=== PATIENT | female | born 2000 | race American Indian/Alaskan Native ===

== ENCOUNTER 2024-05-05 10:01 | Outpatient (AMB) | payer OTHER, SELFPAY ==
--- NOTE | 2024-05-05 10:03 | MHC.PC.OV ---
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 She states that she has been worked up for this by her PCP where in they did ultrasound of the chest , chest x-ray, all of which came back negative and they did an MRI which showed some abnormal findings, but patient unable to follow-up with them anymore as they have since closed her practice. She has never been prescribed anything for the pain and swelling. Has not had any trauma to affected area, no strenuous exertion, just gave a year ago to her 1st child. She states that the pain is aggravated by lifting are doing any stretching. [facility] Medical History (Updated 05/05/24 @ 11:37 by Melly Medrano MD) History of anxiety disorder No pertinent past medical history Surgical History (Updated 05/05/24 @ 10:14 by Evaristo Carver CMA) History of adenoidectomy Hx of tonsillectomy History of appendectomy Family History (Updated 05/05/24 @ 10:30 by Melly Medrano MD) Father Morbid obesity Mother Essential hypertension Depression Paternal Grandfather Diabetes mellitus Paternal Uncle Diabetes mellitus Social History Housing: House Patient Tobacco Use Status: Never used Tobacco e-Cigarette/Vaping Use: Currently Using service: Yes Current occupational status: employed Current occupation: [employer] Current occupational exposures/hazards: Yes Cognitive needs: No Hearing needs: No Vision needs: No Female Reproductive History Menstrual Duration of menses: 3-5 days Date of last menstrual period: 04/27/24 control method: copper IUCD (2022) Date of last pap smear: 04/25/23 Questionnaire PHQ-9 Over the last 2 weeks, how often have you been bothered by any of the following problems? 1. Little interest or pleasure in doing things: not at all 2. Feeling down, depressed, or hopeless: not at all 3. Trouble falling or staying asleep, or sleeping too much: not at all 4. Feeling tired or having little energy: not at all 5. Poor appetite or overeating: not at all 6. Feeling bad about yourself - or that you are a failure or have let yourself or your family down: not at all 7. Trouble concentrating on things, such as reading the newspaper or watching television: not at all 8. Moving or speaking so slowly that other people could have noticed. Or the opposite - being so fidgety or restless that you have been moving around a lot more than usual: not at all 9. Thoughts that you would be better off or of hurting yourself in some way: not at all Total score: 0 Depression Screening Interpretation: Negative Depression Screening Done: Yes 82704 - PHQ-9 Billing: Yes Source: Developed by Drs. Bob Abdul, Sharita Euceda, Thanh Han and colleagues, with an educational giovanny from [employer]. Thrive Questionnaire Date Thrive assessed: 05/05/24 I am a: Patient What is your living situation today?: I have a steady place to live Within the past 12 months, did the food you bought not last and you didn't have the money to get more?: Never true Within the past 12 months, did you worry whether your food would run out before you got money to buy more?: Never true Do you have trouble paying for medicines?: No Do you have trouble getting transportation to medical appointments?: No Do you have trouble paying your heating and electricity bill?: No Do you have trouble taking care of your child, family member or friend?: No Do you have trouble with day-to-day activities such as bathing, preparing meals, shopping, managing finances, etc.?: No Are you currently unemployed and looking for a job?: No Are you interested in more education?: No THRIVE Score: 0 AUDIT C Alcohol Use Questionnaire (AUDIT-C) 1. How often do you have a drink containing alcohol?: 2-4 times a month 2. How many drinks containing alcohol do you have on a typical day when you are drinking?: 1 or 2 3. How often do you have six or more drinks on one occasion?: Never Total Score: 2 Score Reviewed/Action Taken: No THU-7 AMB Questionnaire THU-7 Date THU - 7 assessed: 05/05/24 Feeling nervous, anxious, or on edge: 1 = Several days Not being able to stop or control worryin = Not at all Worrying too much about different things: 1 = Several days Trouble relaxin = Several days Being so restless that it is hard to sit still: 0 = Not at all Becoming easily annoyed or irritable: 1 = Several days Feeling afraid as if something awful might happen: 0 = Not at all Total THU-7 score (0-4 normal; 5-9 mild; 10-14 moderate; 15-21 severe): 4 Source: Developed by Drs. Bob Abdul, Sharita Euceda, Thanh Han and colleagues, with an educational giovanny from [employer]. THU-7 Assessment Billing THU-7 Assessment Tool: THU-7 Assessment 01321 (Previously on duloxetine 30 mg daily, currently not taking ) Review of Systems Const Denies body aches, Denies fatigue, Denies fever(s), Denies headache(s) and Denies weakness Eyes Denies change in vision ENT Denies dizziness, Denies headache(s) and Denies nasal congestion Card Denies lightheadedness, Denies palpitations and Denies dyspnea Resp Denies cough and Denies dyspnea GI Denies abdominal pain, Denies change in bowel habits and Denies heartburn Denies hematuria, Denies urinary frequency, Denies dysuria and Denies urinary urgency Skin/Breast Denies breast pain, Denies breast mass, Denies lesions and Denies rash Neuro Denies dizziness, Denies headache(s) and Denies weakness Endo Denies fatigue, Denies polydipsia and Denies palpitations Jerry/Lymph Denies easy bruising Aller/Immun Denies seasonal rhinorrhea Physical exam (Primary Care) Vital Signs: Last Vital Signs Pulse 86 05/05/24 10:04 BP 108/80 05/05/24 10:04 Pulse Ox 98 05/05/24 10:04 Oxygen Delivery Method Room Air 05/05/24 10:04 BMI result Body Mass Index 28.1 Tobacco/Smoking Status: Tobacco use Status Tobacco use date assessed 05/05/24 05/05/24 10:16 Patient Tobacco Use Status Never used Tobacco 05/05/24 10:16 e-Cigarette/Vaping Use Currently Using 05/05/24 10:16 PHQ-9: PHQ-9 Score PHQ-9: Total score 0 05/05/24 10:41 Depression Screening Interpretation: Negative Const Other: Alert oriented x3, no acute distress noted ambulatory normal gait HENMT Head: Yes normocephalic Ears: hearing grossly normal bilaterally General nose exam: Normal external nose present Face and sinus: Yes face symmetric Mouth: Normal oral and palatal mucosa present, oropharynx normal and moist mucous membranes Eyes General: appearance normal, both eyes and all related structures Neck Neck: Yes full ROM, Yes no lymphadenopathy and Yes supple Chest Other: Irregularly shaped , firm mass palpated on right anterior chest wall, slightly tender to palpation Resp Effort & Inspection: normal respiratory effort and able to speak in complete sentences Auscultation: clear to auscultation bilaterally Cardio Rate: regular rate Rhythm: regular rhythm Heart sounds: S1 normal heart sound present and S2 normal heart sound present Assessment and Plan Assessment & Plan (1) Mass of right chest wall: Code(s): R22.2 - Localized swelling, mass and lump, trunk 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 Ordered ultrasound of soft tissue. records requested from previous basically including MRI results in other ancillary testing done. Advised rest, avoidance of strenuous activity, application of heat to the affected area, and pain medications such as nonsteroidal anti-inflammatory drugs (NSAIDs) or massaging diclofenac gel to affected area 3 to 4 times a day as needed. Patient cautioned however not to apply heat when using the gel Orders: Orders US soft tiss head and/or neck Today R22.2 - Localized swelling, mass and lump, trunk Medications: New diclofenac sodium 1% apply to right chest mass 4 grams topical QID PRN 100 grams 0RF pain, moderate Coding Level of Care Code New Pt Level 3 (50403) Diagnoses Mass of right chest wall R22.2 Additional Codes THU-7 Assessment Billing - THU-7 Assessment Tool: THU-7 Assessment 47412 ([id number])
[2024-05-05 10:04] VITALS: BP 108/80; PULSE 86; O2SAT 98; BMI 28.1
== END 2024-05-05 10:57 | disposition home or self-care (01) ==
PROVIDERS: PCP Internal Medicine; Visit Provider Internal Medicine
DX: R22.2 Localized swelling, mass and lump, trunk (principal)
CPT/HCPCS: 99203

== ENCOUNTER 2024-06-26 09:57 | Outpatient (AMB) | payer OTHER, SELFPAY ==
[2024-06-26 10:02] VITALS: BP 122/84; PULSE 104; O2SAT 97; BMI 28.3
--- NOTE | 2024-06-26 10:02 | AM.OFFWIN_ITS ---
Intake Vital Signs 06/26/24 10:02 Height 5 ft 8 in Weight 186 lb BMI 28.3 BP 122/84 Blood Pressure Location Lt brachial Position Sitting Pulse 104 H Pulse Source Pulse Oximeter Pulse Oximetry (%) 97 Oxygen Delivery Method Room Air Intake Visit Reasons: EP- Lower back pain, shooting pain up & down Intake Note: Patient here for back pain that has progressed over the past 3 weeks ago and has tingling and sharp pain that radiates up the spine now. Patient Tobacco Use Status: Never used Tobacco Allergies Penicillins Allergy (Severe, Verified 06/26/24 10:05) rash Do you need a note to return to daycare/school/sports/work: No HPI HPI Comments History of Present Illness Details Patient is a 24-year-old female complaining of low back pain for the last week or so. She states she injured it over 10 years ago when she was lifting weights at the gym. She had to go to physical therapy for it to heal and has not had an issue since. She is now stating she had a baby a year ago and joined the so she is constantly picking up her 21 lb child and doing a lot more athletic activity due to the which is her job. She states she thinks she re-injured it because it hurts when she bends over or when she tries to move. She states the pain is her low back and it goes all the way across. She states she has tried ibuprofen, lidocaine patches, 3 different kinds of gels and Tylenol and nothing seems to help. She denies any loss of control of her bladder or bowels. [facility] Medical History (Updated 06/26/24 @ 10:55 by Morena Ledezma PA-C) History of anxiety disorder No pertinent past medical history Surgical History (Updated 05/05/24 @ 10:14 by Evaristo Carver CMA) History of adenoidectomy Hx of tonsillectomy History of appendectomy Family History (Updated 05/05/24 @ 10:30 by Melly Medrano MD) Father Morbid obesity Mother Essential hypertension Depression Paternal Grandfather Diabetes mellitus Paternal Uncle Diabetes mellitus Social History Housing: House Patient Tobacco Use Status: Never used Tobacco e-Cigarette/Vaping Use: Currently Using service: Yes Current occupational status: employed Current occupation: [employer] Current occupational exposures/hazards: Yes Cognitive needs: No Hearing needs: No Vision needs: No Review of Systems Const All systems reviewed & are unremarkable except as noted in HPI and below Physical Exam Vital Signs: Last Vital Signs Pulse 104 H 06/26/24 10:02 BP 122/84 06/26/24 10:02 Pulse Ox 97 06/26/24 10:02 Oxygen Delivery Method Room Air 06/26/24 10:02 BMI result Body Mass Index 28.3 Const General: cooperative, healthy appearing and comfortable Orientation/consciousness: patient oriented x3 HEENT Head: Yes normal to inspection and Yes normocephalic General nose exam: Normal external nose present Face and sinus: Yes normal facial exam Eyes General: appearance normal, both eyes and all related structures Resp Effort & Inspection: normal respiratory effort and able to speak in complete sentences Back/Spine/Pelvis Cervical Spine: cervical ROM normal and No Cervical spine tenderness Thoracic/Lumbar Spine: thoracic and lumbar spine normal to inspection, paraspinal muscle tenderness bilaterally in the upper lumbar and in the mid lumbar, thoraco-lumbar ROM limited (slight) with forward flexion, with lateral flexion to the right, with lateral flexion to the left, with rotation to the right and with rotation to the left, No thoracic spinal tenderness and No lumbar spinal tenderness Neuro General: patient oriented x3 Assessment & Plan Assessment & Plan (1) Low back pain: Code(s): M54.50 - Low back pain, unspecified Qualifiers: Chronicity: acute Back pain laterality: bilateral Sciatica presence: without sciatica Qualified Code(s): M54.50 - Low back pain, unspecified Plan: Recommended Aleve around the clock for the next 5-7 days while adding in cyclobenzaprine. Gave warnings on cyclobenzaprine; do not drink alcohol or drive a motor vehicle when you are taking this medication. Recommended resting her back. Wrote a work note to accommodate no running, no jumping, alternating sitting and standing and not lifting more than 10 lb through July 29. Patient has an appointment with her PCP on July 29 so they can readdress her low back pain at that point and determine what else she needs. Plan See above Medications: New cyclobenzaprine 5 mg PO TID PRN 14 tabs 0RF muscle spasm Coding Level of Care Code Est Pt Level 4 (26029) Diagnoses Acute bilateral low back pain without sciatica M54.50 Chronicity: acute Back pain laterality: bilateral Sciatica presence: without sciatica
== END 2024-06-26 10:46 | disposition home or self-care (01) ==
PROVIDERS: PCP Internal Medicine; Visit Provider Physician Assistant
DX: M54.50 Low back pain, unspecified (principal)
CPT/HCPCS: 99214

== ENCOUNTER 2024-07-10 14:03 | Outpatient (REF) | payer OTHER, SELFPAY ==
--- NOTE | ~2024-07-10 | US_ITS ---
EXAMINATION: US CHEST CLINICAL INFORMATION: Right chest wall mass. COMPARISON: None available. TECHNIQUE: High frequency linear ultrasound transducer was used to examine the area of clinical concern in the right chest below the sternum. FINDINGS: No abnormality is seen. Normal rib is seen in the area of clinical concern. No masses or fluid collections are detected. US/US chest IMPRESSION: No abnormality is seen in the area of clinical concern. Electronically signed by: Zackary Barraza MD 07/19/2024 11:28 AM EDT
== END 2024-07-10 14:04 | disposition home or self-care (01) ==
LOC: HO.HMGCX 14:03
PROVIDERS: PCP Internal Medicine; Visit Provider Internal Medicine
DX: R22.2 Localized swelling, mass and lump, trunk (principal)
CPT/HCPCS: 76604

== ENCOUNTER 2024-07-29 12:43 | Outpatient (AMB) | payer OTHER, SELFPAY ==
[2024-07-29 13:20] VITALS: BP 100/80; PULSE 97; O2SAT 97; BMI 28.4
--- NOTE | 2024-07-29 13:20 | MHC.PC.OV ---
Vital Signs 07/29/24 13:20 Height 5 ft 8 in Weight 187 lb BMI 28.4 BP 100/80 Blood Pressure Location Lt brachial Position Sitting Pulse 97 Pulse Source Pulse Oximeter Pulse Oximetry (%) 97 Oxygen Delivery Method Room Air Intake Visit Reasons: Annual PE Intake Note: Pt here today for her PE Is last menstrual period known: Yes Last menstrual period: 07/03/24 Allergies Penicillins Allergy (Severe, Verified 08/03/24 03:52) rash Medication List - Last Reconciled 08/03/24 by Melly Medrano MD copper (ParaGard T 380A) intrauterine cyclobenzaprine 5 mg PO TID PRN nabumetone 500 mg PO BID tizanidine 4 mg PO Q8H PRN valacyclovir 1,000 mg PO DAILY Tobacco use date assessed: 07/29/24 Dental Screening Dental Screen Date: 07/29/24 Did you have a dental visit in the last 12 months?: Yes Did you have a dental problem in the last 6 months where you did not have access to dental care?: Yes Was dental information given to patient?: Patient has dentist HPI Annual PE HPI Details 24-year-old lady here today for physical exam. She has been having lower back pain radiating down both legs, present for the last months, no history of any injury. She is currently in the , has had similar symptoms in the past but they usually would resolve with rest and taking NSAIDs. However these episodes seems to be getting worse progressively and no relief with taking Motrin or Tylenol. Complains of shooting pain from lower back down both legs, worse with sitting or standing unable to carry anything heavier than 20 lb. No improvement with ibuprofen or cyclobenzaprine. Started after she did a jump squat while training in the [facility] Medical History (Updated 07/31/24 @ 13:30 by Melly Medrano MD) Lumbar back pain with radiculopathy affecting lower extremity History of anxiety disorder No pertinent past medical history Surgical History (Updated 05/05/24 @ 10:14 by Evaristo Carver CMA) History of adenoidectomy Hx of tonsillectomy History of appendectomy Family History (Updated 07/29/24 @ 13:45 by Suzie Dutton CMA) Father Morbid obesity Mother Essential hypertension Depression Paternal Grandfather Diabetes mellitus Paternal Uncle Diabetes mellitus Social History Housing: House Patient Tobacco Use Status: Never used Tobacco e-Cigarette/Vaping Use: Currently Using service: Yes Current occupational status: employed Current occupation: [employer] Current occupational exposures/hazards: Yes Cognitive needs: No Hearing needs: No Vision needs: No Female Reproductive History Menstrual Date of last menstrual period: 07/03/24 control method: copper IUCD Questionnaire PHQ-9 Over the last 2 weeks, how often have you been bothered by any of the following problems? 1. Little interest or pleasure in doing things: not at all 2. Feeling down, depressed, or hopeless: not at all 3. Trouble falling or staying asleep, or sleeping too much: not at all 4. Feeling tired or having little energy: not at all 5. Poor appetite or overeating: not at all 6. Feeling bad about yourself - or that you are a failure or have let yourself or your family down: not at all 7. Trouble concentrating on things, such as reading the newspaper or watching television: not at all 8. Moving or speaking so slowly that other people could have noticed. Or the opposite - being so fidgety or restless that you have been moving around a lot more than usual: not at all 9. Thoughts that you would be better off or of hurting yourself in some way: not at all Total score: 0 Depression Screening Interpretation: Negative Depression Screening Done: Yes 75689 - PHQ-9 Billing: Yes Source: Developed by Drs. Bbo Abdul, Sharita Euceda, Thanh Han and colleagues, with an educational giovanny from [employer] Thrive Questionnaire Date Thrive assessed: 07/29/24 I am a: Patient What is your living situation today?: I have a steady place to live Within the past 12 months, did the food you bought not last and you didn't have the money to get more?: Never true Within the past 12 months, did you worry whether your food would run out before you got money to buy more?: Never true Do you have trouble paying for medicines?: No Do you have trouble getting transportation to medical appointments?: No Do you have trouble paying your heating and electricity bill?: No Do you have trouble taking care of your child, family member or friend?: No Do you have trouble with day-to-day activities such as bathing, preparing meals, shopping, managing finances, etc.?: No Are you interested in more education?: No Please select the resources that you would like help with: None Currently or been in a relationship where the following occur: No concerns reported THRIVE Score: 0 AUDIT C Alcohol Use Questionnaire (AUDIT-C) 1. How often do you have a drink containing alcohol?: Monthly or less 2. How many drinks containing alcohol do you have on a typical day when you are drinking?: 1 or 2 3. How often do you have six or more drinks on one occasion?: Never Total Score: 1 THU-7 AMB Questionnaire THU-7 Date THU - 7 assessed: 07/29/24 Feeling nervous, anxious, or on edge: 0 = Not at all Not being able to stop or control worryin = Not at all Worrying too much about different things: 0 = Not at all Trouble relaxin = Not at all Being so restless that it is hard to sit still: 0 = Not at all Becoming easily annoyed or irritable: 0 = Not at all Feeling afraid as if something awful might happen: 0 = Not at all Total THU-7 score (0-4 normal; 5-9 mild; 10-14 moderate; 15-21 severe): 0 Source: Developed by Drs. Bob Abdul, Sahrita Euceda, Thanh Han and colleagues, with an educational giovanny from [employer] Review of Systems Const Denies fatigue, Denies fever(s), Denies headache(s) and Denies weakness Eyes Denies change in vision, Denies eye discharge and Denies itchy eyes ENT Denies dizziness, Denies headache(s), Denies nasal congestion, Denies nasal discharge and Denies sore throat Card Denies chest pain, Denies lightheadedness, Denies palpitations and Denies dyspnea Resp Denies chest congestion, Denies cough, Denies dyspnea and Denies wheezing GI Denies abdominal pain, Denies change in bowel habits and Denies heartburn Denies hematuria, Denies urinary frequency, Denies dysuria and Denies urinary urgency Musc Reports as per HPI Skin/Breast Denies breast pain, Denies breast mass, Denies lesions and Denies rash Neuro Denies dizziness, Denies headache(s) and Denies weakness Psych Reports no additional complaints Endo Denies fatigue, Denies polydipsia, Denies polyuria and Denies palpitations Jerry/Lymph Denies easy bruising Aller/Immun Denies itchy eyes, Denies seasonal rhinorrhea and Denies wheezing Physical exam (Primary Care) Vital Signs: Last Vital Signs Pulse 97 07/29/24 13:20 BP 100/80 07/29/24 13:20 Pulse Ox 97 07/29/24 13:20 Oxygen Delivery Method Room Air 07/29/24 13:20 BMI result Body Mass Index 28.4 Tobacco/Smoking Status: Tobacco use Status Tobacco use date assessed 07/29/24 07/29/24 13:23 Patient Tobacco Use Status Never used Tobacco 07/29/24 13:23 e-Cigarette/Vaping Use Currently Using 07/29/24 13:23 PHQ-9: PHQ-9 Score PHQ-9: Total score 0 07/29/24 13:59 Depression Screening Interpretation: Negative Thrive Assessment: Date of Thrive Assessment Date Thrive assessed 07/29/24 07/29/24 13:23 Currently or been in a relationship where the following occur: No concerns reported Const Other: Alert oriented x3, no acute distress noted, ambulatory Orientation/consciousness: patient oriented x3 HENNE Head: Yes normocephalic Ears: hearing grossly normal bilaterally General nose exam: Normal external nose present Face and sinus: Yes face symmetric Mouth: Normal oral and palatal mucosa present, oropharynx normal and moist mucous membranes Eyes General: appearance normal, both eyes and all related structures Neck Neck: Yes full ROM, Yes no lymphadenopathy and Yes supple Chest Breast/axilla palpation: normal palpation of the breasts Resp Effort & Inspection: normal respiratory effort and able to speak in complete sentences Auscultation: clear to auscultation bilaterally Cardio Rate: regular rate Rhythm: regular rhythm Heart sounds: S1 normal heart sound present and S2 normal heart sound present GI Palpation (GI): Soft to palpation, nontender, no guarding and no masses Auscultation: normal bowel sounds Other: Patient has her own OBGYN Back/Spine/Pelvis Other: Equivocal straight leg raising sign on left Thoracic/Lumbar Spine: paraspinal muscle tenderness bilaterally in the lower lumbar Skin General skin exam: no rashes or lesions noted Neuro General: patient oriented x3, gait normal, tone normal, moves all extremities, Normal light touch and pain sensation, no focal motor deficits and CN's II-XI intact bilaterally Extrem General: Yes full ROM, Yes no joint enlargement and Yes no clubbing, cyanosis or edema Psych Appearance: grossly normal and well kempt Mental Status: mental status grossly normal Speech and movement: Normal speech and movement present Affect: normal affect Assessment and Plan Assessment & Plan (1) Annual visit for general adult medical examination with abnormal findings: Code(s): Z00.01 - Encounter for general adult medical examination with abnormal findings Plan: Will check appropriate labs. Recommended dental visit every 6 months and regular eye exams, at least every 2 years. Instructed to do self-breast exam, and recommended to get yearly mammogram, starting at age 40. Patient states that she has her own OBGYN and is up-to-date with her cervical cancer screening. She is up-to-date with all her vaccines (2) Lumbar back pain with radiculopathy affecting lower extremity: Code(s): M54.16 - Radiculopathy, lumbar region Plan: Will try on nabumetone 500 mg per tablet to take 1 twice a day with food as needed for pain. Discontinued cyclobenzaprine 5 mg and prescribed tizanidine 4 mg/ tablet, may take 1 tablet 3 times a day as needed for muscle spasms . she was given a work note with restrictions. Return to clinic if no improvement of symptoms, MRI of lumbar spine without contrast ordered Orders: Orders Aspartate Amino Transferase 07/29/24 M54.16 - Radiculopathy, lumbar region, Z00.01 - Encounter for general adult medical examination with abnormal findings, Z13.1 - Encounter for screening for diabetes mellitus, Z13.220 - Encounter for screening for lipoid disorders Basic Metabolic Panel Fasting 07/29/24 M54.16 - Radiculopathy, lumbar region, Z00.01 - Encounter for general adult medical examination with abnormal findings, Z13.1 - Encounter for screening for diabetes mellitus, Z13.220 - Encounter for screening for lipoid disorders Complete Blood Count Auto Diff 07/29/24 M54.16 - Radiculopathy, lumbar region, Z00.01 - Encounter for general adult medical examination with abnormal findings, Z13.1 - Encounter for screening for diabetes mellitus, Z13.220 - Encounter for screening for lipoid disorders Vitamin D 25-OH Total 07/29/24 M54.16 - Radiculopathy, lumbar region, Z00.01 - Encounter for general adult medical examination with abnormal findings, Z13.1 - Encounter for screening for diabetes mellitus, Z13.220 - Encounter for screening for lipoid disorders Alanine Aminotransferase 07/29/24 M54.16 - Radiculopathy, lumbar region, Z00.01 - Encounter for general adult medical examination with abnormal findings, Z13.1 - Encounter for screening for diabetes mellitus, Z13.220 - Encounter for screening for lipoid disorders Lipid Panel 07/29/24 M54.16 - Radiculopathy, lumbar region, Z00.01 - Encounter for general adult medical examination with abnormal findings, Z13.1 - Encounter for screening for diabetes mellitus, Z13.220 - Encounter for screening for lipoid disorders Medications: New nabumetone 500 mg PO BID 40 tabs 0RF tizanidine 4 mg PO Q8H PRN 30 tabs 0RF muscle spasticity Coding Level of Care Code Est Pt Prev Care 18-39y(03261) Diagnoses Annual visit for general adult medical examination with abnormal findings Z00.01 Lumbar back pain with radiculopathy affecting lower extremity M54.16
== END 2024-07-29 14:19 | disposition home or self-care (01) ==
PROVIDERS: PCP Internal Medicine; Visit Provider Internal Medicine
DX: Z00.01 Encounter for general adult medical examination with abnormal findings (principal); M54.16 Radiculopathy, lumbar region

== ENCOUNTER → 2024-07-29 12:43 | Outpatient (BNVA) | payer OTHER, SELFPAY | PROVIDERS: PCP Internal Medicine; Visit Provider Internal Medicine ==

== ENCOUNTER 2024-08-07 12:02 | Outpatient (AMB) | payer OTHER, SELFPAY ==
--- NOTE | 2024-08-07 12:03 | A.OFFPC_ITS ---
Intake Visit Reasons: Pain Man Referral Allergies Penicillins Allergy (Severe, Verified 08/03/24 03:52) rash Medication List - Last Reconciled 08/07/24 by Telly Clement MD copper (ParaGard T 380A) intrauterine cyclobenzaprine 5 mg PO TID PRN nabumetone 500 mg PO BID tizanidine 4 mg PO Q8H PRN valacyclovir 1,000 mg PO DAILY Tobacco use date assessed: 07/29/24 Dental Screening Dental Screen Date: 07/29/24 HPI Pain Man Referral HPI Details Patient is 24-year-old female this is a telemedicine video conference Patient is suffering from lower back pain radiating to right leg She was in [facility] recently And had MRI lumbar spine done on of this month Which shows broad based large herniated disc L5-S1 She was evaluated by Dr. Leblanc who has recommended to get 1 cortisone injection to see if she feels better Otherwise she will go through surgery She already has appointment with Neurosurgery on September 19 Patient was given oxycodone in the hospital that she is taking for pain relief There is no bowel or bladder issues [facility] Medical History Lumbar back pain with radiculopathy affecting lower extremity History of anxiety disorder No pertinent past medical history Surgical History History of adenoidectomy Hx of tonsillectomy History of appendectomy Family History Father Morbid obesity Mother Essential hypertension Depression Paternal Grandfather Diabetes mellitus Paternal Uncle Diabetes mellitus Social History Housing: House Patient Tobacco Use Status: Never used Tobacco e-Cigarette/Vaping Use: Currently Using service: Yes Current occupational status: employed Current occupation: [employer] [place] Current occupational exposures/hazards: Yes Cognitive needs: No Hearing needs: No Vision needs: No Questionnaire Thrive Questionnaire Date Thrive assessed: 07/29/24 THU-7 AMB Questionnaire THU-7 Date THU - 7 assessed: 07/29/24 Source: Developed by Drs. Bob Abdul, Sharita Euceda, Thanh Han and colleagues, with an educational giovanny from [employer]. Review of Systems Const Denies chills and Denies fever(s) ENT Denies epistaxis and Denies nasal discharge Card Denies chest pain Resp Denies chest congestion, Denies cough and Denies hemoptysis GI Denies diarrhea and Denies nausea Skin/Breast Denies rash Neuro Reports no additional complaints Psych Reports no additional complaints Endo Reports no additional complaints Physical exam (Primary Care) Tobacco/Smoking Status: Tobacco use Status Tobacco use date assessed 07/29/24 08/07/24 12:03 Patient Tobacco Use Status Never used Tobacco 08/07/24 12:03 e-Cigarette/Vaping Use Currently Using 08/07/24 12:03 Thrive Assessment: Date of Thrive Assessment Date Thrive assessed 07/29/24 08/07/24 12:03 Telehealth Telehealth Telehealth Platform: [employer] Location of provider rendering services: practice address Location of patient: address on file Patient Identification confirmed using: Name, : Yes Telehealth method: video Patient verbally consented to treatment: Yes Patient verbally consented to billing insurance company: Yes Patient informed of any privacy concerns related to visit: Yes Minutes spent on Phone/Video with Pt.: 16 Coding Level of Care Code Tele Est Pt Level 3 (58525) Diagnoses HNP (herniated nucleus pulposus), lumbar M51.26 Lumbar back pain with radiculopathy affecting lower extremity M54.16 Assessment & Plan Assessment & Plan (1) HNP (herniated nucleus pulposus), lumbar: Code(s): M51.26 - Other intervertebral disc displacement, lumbar region Category: Medical (2) Lumbar back pain with radiculopathy affecting lower extremity: Code(s): M54.16 - Radiculopathy, lumbar region Category: Medical Plan Patient is 24-year-old female this is a telemedicine video conference Patient is suffering from lower back pain radiating to right leg She was in [facility] recently And had MRI lumbar spine done on of this month Which shows broad based large herniated disc L5-S1 She was evaluated by Dr. Leblanc who has recommended to get 1 cortisone injection to see if she feels better Otherwise she will go through surgery She already has appointment with Neurosurgery on September 19 Patient was given oxycodone in the hospital that she is taking for pain relief There is no bowel or bladder issues
== END 2024-08-07 12:24 | disposition home or self-care (01) ==
LOC: HO.HMCC 12:02
PROVIDERS: PCP Internal Medicine; Visit Provider Internal Medicine
DX: M51.26 Other intervertebral disc displacement, lumbar region (principal); M54.16 Radiculopathy, lumbar region

== ENCOUNTER → 2024-08-07 12:02 | Outpatient (BNVA) | payer OTHER, SELFPAY | PROVIDERS: PCP Internal Medicine; Visit Provider Internal Medicine ==

== ENCOUNTER 2024-08-27 09:38 | Outpatient (AMB) | payer OTHER, SELFPAY ==
[2024-08-27 10:19] VITALS: BP 104/66; PULSE 84; O2SAT 99; BMI 28.3
--- NOTE | 2024-08-27 10:19 | A.OFFPC_ITS ---
Vital Signs 08/27/24 10:19 Height 5 ft 8 in Weight 186 lb BMI 28.3 BP 104/66 Blood Pressure Location Lt brachial Position Sitting Pulse 84 Pulse Source Pulse Oximeter Pulse Oximetry (%) 99 Oxygen Delivery Method Room Air Intake Visit Reasons: 1 month follow up Intake Note: Pt is here today for 1 month follow up visit on lower back pain. Allergies Penicillins Allergy (Severe, Verified 08/30/24 13:10) rash Medication List - Last Reconciled 08/27/24 by Melly Medrano MD copper (ParaGard T 380A) intrauterine nabumetone 500 mg PO BID valacyclovir 1,000 mg PO DAILY Tobacco use date assessed: 07/29/24 Dental Screening Dental Screen Date: 07/29/24 HPI 1 month follow up HPI Details 24-year-old lady here today for follow-u p regarding results of MRI of lumbar spine which showed large L5-S1 right central superior extrusion extending towards the right clearly compressing the right S1 nerve root. There was also an incidental finding of a 6 cm right ovarian cyst seen. She recently was seen at the ER at [facility] 08/04/2024 and was treated with IV Toradol, Tylenol, lidocaine patch, morphine without relief. Dr. Leblanc, neurosurgeon, was consulted while patient was in [facility] who did not recommend surgery in the absense of motor deficitis. She is scheduled to see Dr. Leblanc on 09/09/24 and considers surgery as back pain has been progressively getting worse and is preventing her from doing her day-to-day activities SHe hashHistory of traumatic brain injury 2 years ago while training and was knocked out, underwent a CT of the head which showed presence of a benign cyst the size of a golf ball, per patient, copy CT scan results unavailable to me at this time. She has been complaining of chronic headaches and intermittent lightheadedness for the last several days now and would like to get this checked Incidental finding of a right 6 cm ovarian cysts on MRI of lumbar spine. Patient has been having severe menstrual cramps, but no alteration in menstrual cycle Has history of genital herpes, needs refill on her valacyclovir prescription treatment for recurrent genital herpes [facility] Medical History History of herpes genitalis Right ovarian cyst Chronic headaches Lumbar back pain with radiculopathy affecting lower extremity History of anxiety disorder No pertinent past medical history Surgical History History of adenoidectomy Hx of tonsillectomy History of appendectomy Family History Father Morbid obesity Mother Essential hypertension Depression Paternal Grandfather Diabetes mellitus Paternal Uncle Diabetes mellitus Social History Housing: House Patient Tobacco Use Status: Never used Tobacco e-Cigarette/Vaping Use: Currently Using service: Yes Current occupational status: employed Current occupation: [email or web address] Current occupational exposures/hazards: Yes Cognitive needs: No Hearing needs: No Vision needs: No Questionnaire Thrive Questionnaire Date Thrive assessed: 07/29/24 I am a: Patient What is your living situation today?: I have a steady place to live Within the past 12 months, did the food you bought not last and you didn't have the money to get more?: Never true Within the past 12 months, did you worry whether your food would run out before you got money to buy more?: Never true Do you have trouble paying for medicines?: No Do you have trouble getting transportation to medical appointments?: No Do you have trouble paying your heating and electricity bill?: No Do you have trouble taking care of your child, family member or friend?: No Do you have trouble with day-to-day activities such as bathing, preparing meals, shopping, managing finances, etc.?: No Are you currently unemployed and looking for a job?: No Are you interested in more education?: No Please select the resources that you would like help with: None Currently or been in a relationship where the following occur: No concerns reported THRIVE Score: 0 THU-7 AMB Questionnaire THU-7 Date THU - 7 assessed: 07/29/24 Source: Developed by Drs. Bob Abdul, Sharita Euceda, Thanh Han and colleagues, with an educational giovanny from [employer]. Review of Systems Const Denies fatigue, Denies fever(s), Denies frequent falls and Denies weakness Eyes Denies change in vision, Denies diplopia, Denies eye discharge and Denies itchy eyes ENT Reports vertigo, Denies dizziness and Denies disequilibrium Card Denies chest pain, Reports lightheadedness (Intermittent), Denies palpitations and Denies dyspnea Resp Denies chest congestion, Denies cough, Denies dyspnea and Denies wheezing GI Denies abdominal pain, Denies change in bowel habits and Denies heartburn Denies hematuria, Denies urinary frequency, Denies dysuria, Denies urinary incontinence and Denies urinary urgency Musc Reports as per HPI and Reports tingling Skin/Breast Denies breast pain, Denies breast mass, Denies lesions and Denies rash Neuro Reports as per HPI, Reports vertigo, Denies dizziness, Denies frequent falls, Denies lack of coordination, Denies focal weakness, Reports tingling, Reports paresthesias (Going down right lower extremity in buttock), Denies disequilibrium and Denies weakness Psych Reports no additional complaints Endo Denies fatigue, Denies polydipsia, Denies polyuria and Denies palpitations Jerry/Lymph Denies easy bruising Aller/Immun Denies itchy eyes, Denies seasonal rhinorrhea and Denies wheezing Physical exam (Primary Care) Vital Signs: Last Vital Signs Pulse 84 08/27/24 10:19 BP 104/66 08/27/24 10:19 Pulse Ox 99 08/27/24 10:19 Oxygen Delivery Method Room Air 08/27/24 10:19 BMI result Body Mass Index 28.3 Tobacco/Smoking Status: Tobacco use Status Tobacco use date assessed 07/29/24 08/27/24 10:21 Patient Tobacco Use Status Never used Tobacco 08/27/24 10:21 e-Cigarette/Vaping Use Currently Using 08/27/24 10:21 Thrive Assessment: Date of Thrive Assessment Date Thrive assessed 07/29/24 08/27/24 10:21 Currently or been in a relationship where the following occur: No concerns reported Const Orientation/consciousness: patient oriented x3 HENMT Head: Yes normocephalic Face and sinus: Yes face symmetric Mouth: moist mucous membranes Eyes General: appearance normal, both eyes and all related structures Neck Neck: Yes full ROM, Yes no lymphadenopathy and Yes supple Resp Effort & Inspection: normal respiratory effort and able to speak in complete sentences Auscultation: clear to auscultation bilaterally Cardio Rate: regular rate Rhythm: regular rhythm Heart sounds: S1 normal heart sound present and S2 normal heart sound present GI Palpation (GI): Soft to palpation, nontender, no guarding and no masses Auscultation: normal bowel sounds Back/Spine/Pelvis Thoracic/Lumbar Spine: pain with thoraco-lumbar ROM (On right), paraspinal muscle tenderness (Right lumbar area and right buttock) and straight leg raise positive (Right) Skin General skin exam: no rashes or lesions noted Neuro Other: Decreased range of motion on right, MMT 5/5 except for right lower extremity which is 4/5 General: patient oriented x3 and no focal motor deficits Gait exam (Neuro): Antalgic gait present Extrem General: Yes no joint enlargement and Yes no clubbing, cyanosis or edema Coding Level of Care Code Est Pt Level 4 (24953) Complex EM visit Add On G2211 Diagnoses Lumbar disc herniation with radiculopathy M51.16 Chronic nonintractable headache, unspecified headache type R51.9; G89.29 Headache type: unspecified Intractability: not intractable Intermittent lightheadedness R42 History of cyst of brain Z86.69 Right ovarian cyst N83.201 Dysmenorrhea N94.6 History of herpes genitalis Z86.19 Assessment & Plan Assessment & Plan (1) Lumbar disc herniation with radiculopathy: Code(s): M51.16 - Intervertebral disc disorders with radiculopathy, lumbar region Category: Medical Plan: Has appointment with pain management in a.m., and appointment to see Dr. daniels on 09/09/2024. Continue with NSAIDs for now (2) Chronic headaches: Code(s): R51.9 - Headache, unspecified; G89.29 - Other chronic pain Category: Medical Qualifiers: Headache type: unspecified Intractability: not intractable Qualified Code(s): R51.9 - Headache, unspecified; G89.29 - Other chronic pain Plan: CT of head without contrast ordered (3) Intermittent lightheadedness: Code(s): R42 - Dizziness and giddiness Plan: CT of head without contrast ordered (4) History of cyst of brain: Code(s): Z86.69 - Personal history of other diseases of the nervous system and sense organs Plan: CT of head without contrast ordered (5) Right ovarian cyst: Code(s): N83.201 - Unspecified ovarian cyst, right side Category: Medical Plan: Pelvic ultrasound ordered (6) Dysmenorrhea: Code(s): N94.6 - Dysmenorrhea, unspecified Plan: Pelvic ultrasound ordered (7) History of herpes genitalis: Code(s): Z86.19 - Personal history of other infectious and parasitic diseases Category: Medical Plan: Prescription sent for valacyclovir 500 mg per tablet to take 1 tablet every 12 hours for 3 days, take it initial sign of recurrence Orders: Orders CT head/brain wo IV con 08/27/24 G89.29 - Other chronic pain, R42 - Dizziness and giddiness, R51.9 - Headache, unspecified, Z86.69 - Personal history of other diseases of the nervous system and sense organs US pelvic complete Today N83.201 - Unspecified ovarian cyst, right side, N94.6 - Dysmenorrhea, unspecified Medications: New valacyclovir Take at the 1st sign of outbreak 500 mg PO Q12H 3 days PRN 6 tabs 4RF Recurrent genital herpes Z86.19 - Personal history of other infectious and parasitic diseases
== END 2024-08-27 12:26 | disposition home or self-care (01) ==
PROVIDERS: PCP Internal Medicine; Visit Provider Internal Medicine
DX: M51.16 Intervertebral disc disorders with radiculopathy, lumbar region (principal); R51.9 Headache, unspecified; G89.29 Other chronic pain; R42 Dizziness and giddiness; Z86.69 Personal history of other diseases of the nervous system and sense organs; N83.201 Unspecified ovarian cyst, right side; N94.6 Dysmenorrhea, unspecified; Z86.19 Personal history of other infectious and parasitic diseases

== ENCOUNTER → 2024-08-27 09:38 | Outpatient (BNVA) | payer OTHER, SELFPAY | PROVIDERS: PCP Internal Medicine; Visit Provider Internal Medicine | DX: M51.16 Intervertebral disc disorders with radiculopathy, lumbar region (principal); R51.9 Headache, unspecified; G89.29 Other chronic pain; R42 Dizziness and giddiness; N83.201 Unspecified ovarian cyst, right side; N94.6 Dysmenorrhea, unspecified; Z86.69 Personal history of other diseases of the nervous system and sense organs; Z86.19 Personal history of other infectious and parasitic diseases | CPT/HCPCS: 99212 ==

== ENCOUNTER 2024-08-28 11:04 | Outpatient (AMB) | payer OTHER, SELFPAY ==
--- NOTE | 2024-08-28 11:16 | MHC.OFFVIS ---
Vital Signs 08/28/24 11:22 Height 5 ft 8 in Weight 185 lb BMI 28.1 BP 125/73 Blood Pressure Location Lt brachial Position Sitting Pulse 97 Pulse Source Pulse Oximeter Pulse Oximetry (%) 100 Oxygen Delivery Method Room Air Intake Visit Reasons: Intervertebral Disc Placement Intake Note: Pain today 05/13 [employer] Operator Required: No Accompanied by: Self / Same As Patient Allergies Penicillins Allergy (Severe, Verified 08/28/24 11:21) rash HPI HPI Intervertebral Disc Placement: Details: Patient is a pleasant 24 years female, active in the [employer], presents today for initial evaluation of acute low back pain with radiculopathy. 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 Reports similar back pain symptoms in in the past which would resolve with rest and NSAIDs, but not this time. She was seen at [facility] ER on 08/04/24 and was treated with IV Toradol, Tylenol, lidocaine patch, morphine without relief. Prior to ER, she saw her PCP and conservatively treated her symptoms with massage gun, Tylenol, heating pad, hot showers, Advil and tizanidine without any relief. Lumbar spine MRI was completed and is noted below. Dr. Leblanc, neurosurgeon, was consulted while patient was in [facility] who did not recommend surgery in the absense of motor deficitis. She is scheduled to see Dr. Leblanc on 09/09/24 and considers surgery as back pain has been progressively getting worse and debilitating. Pain affects her daily activities and functioning, mobility, sleep, work, and quality of life. She has been on light duty working from home, working on computer. Reports increased pain with walking or standing, or prolonged sitting which driving or working on computer. Patient is unable to perform full back exam due to significant aggravation of lower back pain with radiation into her right leg with minimal movement or lifting her right leg with associated sensory loss in right L5-S1 distribution as well as decreased extension of right lower extremity due to weakness in her right hip extensor and 4th and 5th toe flexion and extension. Patient denies any fever or chills, abdominal or groin pain, bladder or bowel dysfunction or saddle anesthesia. Oswestry Low Back Disability Score=26 (severe disability) Location: Lower back radiates down right leg Duration: 3 months Characteristics of symptom or complaint: Stabbing, aching, numbness, tingling, burning, radiating, shooting Aggravating or associated factors: Movements, walking, sitting, climbing stairs, ADLs, twisting, lifting Relieving factors: Rest, heating pad, oxycodone (N/V), tizanidine, NSAIDs, lidocaine patch Treatment: [facility] ER, MRI, Pending Neurosurgical eval with Dr. Leblanc 09/09/24 [facility] Medical History History of herpes genitalis Right ovarian cyst Chronic headaches Lumbar back pain with radiculopathy affecting lower extremity History of anxiety disorder No pertinent past medical history Surgical History History of adenoidectomy Hx of tonsillectomy History of appendectomy Family History Father Morbid obesity Mother Essential hypertension Depression Paternal Grandfather Diabetes mellitus Paternal Uncle Diabetes mellitus Social History Housing: House Patient Tobacco Use Status: Never used Tobacco e-Cigarette/Vaping Use: Currently Using service: Yes Current occupational status: employed Current occupation: [employer] Current occupational exposures/hazards: Yes Cognitive needs: No Hearing needs: No Vision needs: No Review of Systems Const All systems reviewed & are unremarkable except as noted in HPI and below Physical Exam Vital Signs: Last Vital Signs Pulse 97 08/28/24 11:22 BP 125/73 08/28/24 11:22 Pulse Ox 100 08/28/24 11:22 Oxygen Delivery Method Room Air 08/28/24 11:22 BMI result Body Mass Index 28.1 General: Appears afebrile. Alert and oriented. Mood and affect appropriate. Follows and participates in conversation appropriately. Respiratory effort is unlabored. No cough. Able to transition from sit to stand unassisted. Slow, antalgic gait. Ambulates with left normal heel strike and toe off. Reports RLE weakness due to pain. Const Orientation/consciousness: patient oriented x3 General: Yes no CVA tenderness Back/Spine/Pelvis Other: Unable to perform lumbar ROM due to pain. SLR with dorsiflexion positive on the right. Valsalva maneuvr is positive. Back: no CVA tenderness Cervical Spine: cervical ROM normal and No Cervical spine tenderness Thoracic/Lumbar Spine: thoracic and lumbar spine normal to inspection, No Thoracic/lumbar spine scar(s), Lasegue's sign positive (L5-S1 distribution) on the right and localized, pain with thoraco-lumbar ROM, paraspinal muscle tenderness, thoraco-lumbar ROM limited, No thoracic spinal tenderness, lumbar spinal tenderness (L4-S1) and straight leg raise positive right at 30 degrees Pelvis: buttock tenderness on the right and sciatic notch tenderness on the right Sacroiliac joints: bilaterally nontender Neuro General: patient oriented x3, moves all extremities, CN's II-XI intact bilaterally and deep tendon reflexes 2+ bilaterally (Diminished Achilles reflex on the right) Gait exam (Neuro): Antalgic gait present Motor exam (neuro): 5/5 motor strength present throughout (4/5 right) and Abnormal motor strength present right lower extremity extension 4 / 5 Sensory Exam: sensory level loss detected (Right L5-S1 decreased sensation, +paresthesia) and Abnormal lower extremity sensory exam right light-touch abnormal in a dermatomal distribution (L5-S1) Extrem General: Yes capillary refill normal, Yes no clubbing, cyanosis or edema and Yes no calf tenderness Results Reviewed Results Reviewed: Assessment & Plan Assessment & Plan (1) Lumbar back pain with radiculopathy affecting lower extremity: Code(s): M54.16 - Radiculopathy, lumbar region Category: Medical (2) Spinal stenosis, lumbar region with neurogenic claudication: Code(s): M48.062 - Spinal stenosis, lumbar region with neurogenic claudication Category: Medical (3) Lumbar disc herniation with radiculopathy: Code(s): M51.16 - Intervertebral disc disorders with radiculopathy, lumbar region Category: Medical Plan Patient is recommended to proceed with Neurosurgical evaluation with Dr. Leblanc as planned on 09/09/24. Discussed therapeutic XAVI for symptomatic relief which is not guaranteed to provide her a sustained pain relieve (at least 3 months) given limited back exam due to exacerbation of pain and current MRI findings. Short script provided for tramadol and meloxicam. Patient reports nausea with vomiting with oxycodone. Narcan prescribed, described use and administration. All questions and concerns have been answered and patient agreed with the plan. Follow up as needed. Medications: New tramadol 50 mg PO TID 10 days PRN 30 tabs 0RF pain (scale score 7-10) M51.26 - Other intervertebral disc displacement, lumbar region, M54.16 - Radiculopathy, lumbar region meloxicam Take it with food and full glass of water. Avoid other NSAIDs. 15 mg PO DAILY 30 days PRN 30 tabs 0RF pain M51.26 - Other intervertebral disc displacement, lumbar region, M54.16 - Radiculopathy, lumbar region naloxone 4 mg/actuation (Narcan) spray 1 dose into ONE nostril; alternate nostrils w each dose until help arrives 4 mg intranasal Q2M PRN 2 ea 0RF opioid overdose Coding Level of Care Code New Pt Level 4 (88966) Complex EM visit Add On G2211 Diagnoses Lumbar back pain with radiculopathy affecting lower extremity M54.16 Spinal stenosis, lumbar region with neurogenic claudication M48.062 Lumbar disc herniation with radiculopathy M51.16
[2024-08-28 11:22] VITALS: BP 125/73; PULSE 97; O2SAT 100; BMI 28.1
== END 2024-08-28 11:47 | disposition home or self-care (01) ==
PROVIDERS: PCP Internal Medicine; Referring Provider Internal Medicine; Visit Provider Nurse Practitioner Family
DX: M54.16 Radiculopathy, lumbar region (principal); M48.062 Spinal stenosis, lumbar region with neurogenic claudication; M51.16 Intervertebral disc disorders with radiculopathy, lumbar region
CPT/HCPCS: 99204; G2211

== ENCOUNTER → 2024-08-28 11:04 | Outpatient (BNVA) | payer OTHER, SELFPAY | PROVIDERS: PCP Internal Medicine; Referring Provider Internal Medicine; Visit Provider Nurse Practitioner Family | DX: M51.16 Intervertebral disc disorders with radiculopathy, lumbar region (principal); M48.062 Spinal stenosis, lumbar region with neurogenic claudication | CPT/HCPCS: 99202 ==

== ENCOUNTER 2024-11-19 12:51 | Outpatient (REF) | payer OTHER, SELFPAY ==
--- NOTE | ~2024-11-19 | CT_ITS ---
EXAMINATION: CT HEAD WITHOUT CONTRAST CLINICAL INFORMATION: Z86.69 - Personal history of other diseases of the nervous system and se... COMPARISON: None available. TECHNIQUE: Contiguous axial imaging was performed from the skull base to vertex without intravenous administration of contrast. This CT examination was performed using dose optimization techniques as appropriate, variously including the following: *Automated exposure control *Adjustment of mA and/or kV according to patient size (this includes techniques or standardized protocols for targeted exams where dose is matched to indication/reason for exam; i.e. extremities or head) *Use of iterative reconstruction technique DLP: 669 mGy-cm FINDINGS: No acute intracranial hemorrhage, mass effect, midline shift, hydrocephalus or herniation. Rowland-white matter differentiation is normal. Posterior cranial fossa contents demonstrated no acute intracranial hemorrhage or mass effect. Sellar/suprasellar region demonstrated no gross masses. Craniocervical junction is grossly intact. Mild prominent cisterna magna versus less likely simple arachnoid cyst. Mucosal thickening, ethmoid cells and right maxillary sinus and right sphenoid sinus. Tympanic cavities and mastoid cells are aerated. Pneumatized right petrous apex. CT/CT head/brain wo IV con IMPRESSION: No acute or structural brain abnormality by CT. Electronically signed by: Jericho Chung MD 11/19/2024 01:36 PM [facility] [place] [place]
== END 2024-11-19 12:52 | disposition home or self-care (01) ==
LOC: HO.CT 12:51
PROVIDERS: PCP Internal Medicine; Visit Provider Internal Medicine
DX: R42 Dizziness and giddiness (principal); R51.9 Headache, unspecified; G89.29 Other chronic pain; Z86.69 Personal history of other diseases of the nervous system and sense organs
CPT/HCPCS: 70450

== ENCOUNTER → 2024-11-19 12:54 | Outpatient (BNV) | payer OTHER, SELFPAY | PROVIDERS: PCP Internal Medicine; Visit Provider Radiology Diagnostic Radiology | DX: Z86.69 Personal history of other diseases of the nervous system and sense organs (principal) | CPT/HCPCS: 70450 ==

== ENCOUNTER 2024-11-27 13:48 | Outpatient (REF) | payer OTHER, SELFPAY ==
--- NOTE | ~2024-11-27 | US_ITS ---
EXAMINATION: US PELVIS TRANSABDOMINAL AND TRANSVAGINAL HISTORY: N83.201 - Unspecified ovarian cyst, right side COMPARISON: There are no prior studies for comparison. TECHNIQUE: Transabdominal and endovaginal real-time 2D mayer-scale ultrasound was performed. Color Doppler was also performed. FINDINGS: Uterus: The uterus is normal in size, measuring 7.7 x 4.0 x 6.3 cm. Myometrium has a normal echotexture. No fibroids are identified. Endometrium: The endometrial stripe measures 15 mm in thickness. An IUD is noted in the lower uterine segment/cervix. Right ovary: The right ovary measures 6.5 x 5.1 x 7.5 cm. There is a 5.4 x 4.9 x 6.7 cm cyst within the right ovary. Left ovary: The left ovary measures 4.7 x 2.4 x 4.0 cm. There are multiple follicles noted. In addition, there is a 1.7 x 1.6 x 1.3 cm cyst, which may represent a dominant follicle. Color Doppler analysis of the bilateral ovarian arteries and veins are normal. Pelvic fluid: none. US/US pelvic and transvaginal IMPRESSION: 1. Abnormally positioned IUD in the lower uterine segment/cervix. 2. 5.4 x 4.9 x 6.7 cm right ovarian cyst. A follow-up examination in 6 weeks, at a different time in the patient's menstrual cycle, is recommended. Electronically signed by: Bob Urbano MD 11/27/2024 02:44 PM [facility]
== END 2024-11-27 13:49 | disposition home or self-care (01) ==
LOC: HO.HMGCX 13:48
PROVIDERS: PCP Internal Medicine; Visit Provider Internal Medicine
DX: N83.201 Unspecified ovarian cyst, right side (principal); N94.6 Dysmenorrhea, unspecified
CPT/HCPCS: 76830; 76856

== ENCOUNTER → 2024-11-27 13:52 | Outpatient (BNV) | payer OTHER, SELFPAY | PROVIDERS: PCP Internal Medicine; Visit Provider Radiology Diagnostic Radiology | DX: N83.201 Unspecified ovarian cyst, right side (principal) | CPT/HCPCS: 76830; 76856 ==

== ENCOUNTER 2024-12-18 13:44 | Emergency (ER) | payer OTHER, SELFPAY ==
--- NOTE | ~2024-12-18 | US_ITS ---
EXAMINATION: US PELVIS CLINICAL INFORMATION: Right pelvic pain. COMPARISON: 11/27/2024. TECHNIQUE: Ultrasound of the pelvis is performed using both transabdominal and transvaginal transducers along with Doppler. Transvaginal imaging is performed due to inadequate visualization transabdominally. FINDINGS: Uterus: The uterus is anteverted and measures 8.0 x 4.5 x 5.7 cm. Normal-appearing cervix. The double wall endometrial thickness is 10 mm. IUD is positioned low, within the lower uterine segment extending into the cervix. The uterus is smooth in contour and has normal myometrial echogenicity. No visible fibroid. Adnexa: Both ovaries are visualized. There is normal color flow to the adnexa. There is no ovarian torsion. There is no pelvic ascites or fluid collection. There are no adnexal masses. Right ovary measures 9.0 x 5.6 x 6.9 cm. Volume = 182 mL. There is a large right ovarian simple cyst measuring 7.4 x 4.7 x 5.4 cm. (Previously this measured 5.4 x 4.9 x 6.7 cm on 11/27/2024). There is a smaller follicular cyst measuring 2.3 x 2.1 x 2.9 cm. Left ovary measures 3.1 x 2.3 x 1.8 cm. Volume = 6.7 mL. Normal sonographic appearance. US/US pelvic and transvaginal IMPRESSION: 1. No evidence of ovarian torsion. 2. There are 2 ovarian cysts, the larger measuring up to 7.4 cm. (Previously the large cyst measured 5.4 x 4.9 x 6.7 cm on 11/27/2024). 3. The IUD is malpositioned, within the lower uterine segment and cervix. This is unchanged from the prior exam. Electronically signed by: Jose Ospina MD 12/18/2024 05:02 PM EST
--- NOTE | ~2024-12-18 | US_ITS ---
EXAMINATION: US PELVIS CLINICAL INFORMATION: Right pelvic pain. COMPARISON: 11/27/2024. TECHNIQUE: Ultrasound of the pelvis is performed using both transabdominal and transvaginal transducers along with Doppler. Transvaginal imaging is performed due to inadequate visualization transabdominally. FINDINGS: Uterus: The uterus is anteverted and measures 8.0 x 4.5 x 5.7 cm. Normal-appearing cervix. The double wall endometrial thickness is 10 mm. IUD is positioned low, within the lower uterine segment extending into the cervix. The uterus is smooth in contour and has normal myometrial echogenicity. No visible fibroid. Adnexa: Both ovaries are visualized. There is normal color flow to the adnexa. There is no ovarian torsion. There is no pelvic ascites or fluid collection. There are no adnexal masses. Right ovary measures 9.0 x 5.6 x 6.9 cm. Volume = 182 mL. There is a large right ovarian simple cyst measuring 7.4 x 4.7 x 5.4 cm. (Previously this measured 5.4 x 4.9 x 6.7 cm on 11/27/2024). There is a smaller follicular cyst measuring 2.3 x 2.1 x 2.9 cm. Left ovary measures 3.1 x 2.3 x 1.8 cm. Volume = 6.7 mL. Normal sonographic appearance. US/US pelvic ovarian doppler IMPRESSION: 1. No evidence of ovarian torsion. 2. There are 2 ovarian cysts, the larger measuring up to 7.4 cm. (Previously the large cyst measured 5.4 x 4.9 x 6.7 cm on 11/27/2024). 3. The IUD is malpositioned, within the lower uterine segment and cervix. This is unchanged from the prior exam. Electronically signed by: Jose Ospina MD 12/18/2024 05:02 PM [facility]
[2024-12-18 14:22] VITALS: BP 137/88; PULSE 90; RESP 16; TEMP 36.7; O2SAT 98; BMI 28.6
--- NOTE | 2024-12-18 14:30 | ED_ITS ---
HPI - General Adult General Chief complaint: Abdominal Pain Stated complaint: ovarian Cyst Time Seen by Provider: 12/18/24 18:53 Source: patient, RN notes reviewed and old records reviewed Mode of arrival: ambulatory Limitations: no limitations History of Present Illness ED Provider: Rosaura CAMACHO narrative: 24-year-old female presents for evaluation of lower abdominal pain. Patient reports she was diagnosed with an ovarian cyst in August and had a repeat ultrasound a couple of weeks ago. She states that her pain is worse today Denies any difficulty urinating. She reports that she was due to follow up with OBGYN On her last ultrasound she was told that her IUD is malpositioned Her pain is 08/13 Related Data Home Medications ?Medication ?Instructions ?Recorded ?Confirmed copper 380 square mm intrauterine intrauterine 05/05/24 08/07/24 device (ParaGard T 380A) Previous Rx's ?Medication ?Instructions ?Recorded nabumetone 500 mg tablet 500 mg PO BID #40 tabs 07/29/24 valacyclovir 500 mg tablet 500 mg PO Q12H PRN Recurrent 08/27/24 genital herpes 3 days #6 tabs meloxicam 15 mg tablet 15 mg PO DAILY PRN pain 30 days 08/28/24 #30 tabs naloxone 4 mg/actuation nasal 4 mg intranasal Q2M PRN opioid 08/28/24 spray (Narcan) overdose #2 ea tramadol 50 mg tablet 50 mg PO TID PRN pain (scale score 08/28/24 7-10) 10 days #30 tabs Allergies Allergy/AdvReac Type Severity Reaction Status Date / Time Penicillins Allergy Severe rash Verified 12/18/24 14:24 Review of Systems 2 Constitutional: Constitutional: Denies body ache(s), Denies chills and Denies fever(s) Cardiovascular: Cardiovascular: Denies chest pain Gastrointestinal: Gastrointestinal: Reports abdominal pain, Reports nausea and Denies vomiting Musculoskeletal: Musculoskeletal: Denies back pain Integumentary/Breasts: Skin/Breast: Denies rash PMFSH Past Medical History Medical History History of herpes genitalis Right ovarian cyst Chronic headaches Lumbar back pain with radiculopathy affecting lower extremity History of anxiety disorder No pertinent past medical history Surgical History History of adenoidectomy Hx of tonsillectomy History of appendectomy Family History Family History Father Morbid obesity Mother Essential hypertension Depression Paternal Grandfather Diabetes mellitus Paternal Uncle Diabetes mellitus Social History Social History Housing: House Patient Tobacco Use Status: Never used Tobacco e-Cigarette/Vaping Use: Currently Using service: Yes Current occupational status: employed Current occupation: [employer] Current occupational exposures/hazards: Yes Cognitive needs: No Hearing needs: No Vision needs: No Physical Exam ED Vital Signs: Vital Signs - 24 hr 12/18/24 14:22 Temperature 98.0 F Pulse Rate 90 Respiratory Rate 16 Blood Pressure 137/88 Pulse Oximetry 98 Oxygen Delivery Method Room Air BMI result Body Mass Index 28.6 Const General: healthy appearing, comfortable, no acute distress, alert and awake Nutritional Appearance: well nourished Orientation/consciousness: patient oriented x3 HENMT Head: Yes normocephalic and Yes atraumatic Eyes Eyelids: Yes eyelids normal Conjunctivae: conjunctivae normal Sclerae: sclerae normal Corneas: corneas normal Pupils: Equal, round and reactive pupils present EOM: EOMs intact bilaterally Neck Neck: Yes full ROM Resp Effort & Inspection: normal respiratory effort, able to speak in complete sentences and not labored GI Inspection: No distended Palpation (GI): Soft to palpation, Tenderness to palpation present (GI) in the RLQ and suprapubicly, no guarding and not rigid Skin General skin exam: no rashes or lesions noted and elasticity normal Neuro General: patient oriented x3 Cranial nerves: Yes Equal, round and reactive pupils present and Yes Bilaterally intact EOM present Cognition (Neuro): normal cognition Extrem Other: Moving all extremities well without any obvious deformities Course Course Course Narrative: RME, this is a rapid medical exam performed by Vinh Kaplan please refer to primary provider for complete H&P- 24 year old female presents for evaluation of right pelvic pain. She has a known ovarian cyst onm the right up to 6.7cm. Plan for labs and a pelvic ultrasound Medical Decision Making Medical Decision Making MDM Narrative: 24-year-old female presents for evaluation of lower abdominal pain. She is a known large right ovarian cyst. Plan for repeat ultrasound to rule out ovarian torsion. Basic labs and urinalysis. The patient is not , labs are unremarkable. Patient's ultrasound does not show any evidence of torsion. I discussed these finding with the patient and she will be discharged to follow up with OBGYN Differential Diagnosis Differential Diagnoses: The differential diagnosis associated with the presentation includes Ovarian cyst Ovarian torsion Pelvic pain UTI Lab Data MDM Lab Attestation statement: I reviewed the patient's lab results. No leukocytosis or significant anemia. Normal platelet count. No electrolyte abnormalities. The patient is not 12/18/24 15:46 12/18/24 15:46 Labs: Lab Results 12/18/24 12/18/24 Range/Units 15:46 15:51 WBC 7.3 (4.8-10.8) X10*3/uL RBC 4.13 L (4.20-5.50) X10*6/uL Hgb 12.4 (12.0-16.0) g/dl Hct 36.3 L (37.0-47.0) % MCV 87.9 (80.0-98.0) fL MCH 30.0 (27.0-33.0) pg MCHC 34.2 (31.0-35.0) g/dl RDW 12.2 (11.0-16.0) % Plt Count 274 (160-400) X10*3/uL MPV 10.3 (9.4-12.3) fL Immature Gran % (Auto) 0.1 (0.0-0.4) % Neut % (Auto) 64.8 (45-73) % Lymph % (Auto) 27.8 (20-40) % Island % (Auto) 6.3 (2-11) % Eos % (Auto) 0.6 (0-4) % Baso % (Auto) 0.4 (0-2) % Lymph # (Auto) 2.0 (1.2-4.9) X10*3/uL Island # (Auto) 0.5 (0.1-1.2) X10*3/uL Eos # (Auto) 0.0 (0.0-0.4) X10*3/uL Baso # (Auto) 0.0 (0.0-0.2) X10*3/uL Abs Immat Gran (auto) 0.01 (0.00-0.03) X10*3/uL Absolute Neuts (auto) 4.7 (2.0-8.3) x10*3/uL Absolute Nucleated RBC 0.000 (0.0-0.012) X10*3/uL Nucleated RBC % (auto) 0.0 (0.0-0.2) /100WBC Sodium 138 (135-145) mmol/L Potassium 4.2 (3.3-5.1) mmol/L Chloride 108 (96-108) mmol/L Carbon Dioxide 23 (22-29) mmol/L Anion Gap 11 L (12-20) BUN 13 (9-16) mg/dL Creatinine 0.71 (0.5-1.4) mg/dL Estim Creat Clear Calc 138.6 Estimated GFR > 60 Random Glucose 91 (60-115) mg/dL Calcium 9.9 (8.4-10.2) mg/dL Beta HCG, Quant < 2 mIU/mL Urine Color Yellow Urine Appearance Clear Urine pH 7.0 (5.0-9.0) Ur Specific [place] 1.015 (1.005-1.025) Urine Protein Negative (Neg-Trace) mg/dL Urine Glucose (UA) Negative (Negative) mg/dL Urine Ketones Negative (Negative) mg/dL Urine Blood Trace H (Negative) Urine Nitrite Negative (Negative) Ur Leukocyte Esterase Small (1+) H (Negative) Urine RBC 3-5 H (0-2) /HPF Urine WBC 6-10 H (0-5) /HPF Ur Squamous Epith Cells 3-5 (0-2) /HPF Urine Bacteria Trace (None Seen) Hyaline Casts 0-2 (0-2) /LPF Radiology Impression Discussion of test interpretation with radiology: I have reviewed the radiologist's reading. Radiologist Impression: FINDINGS: Uterus: The uterus is anteverted and measures 8.0 x 4.5 x 5.7 cm. Normal-appearing cervix. The double wall endometrial thickness is 10 mm. IUD is positioned low, within the lower uterine segment extending into the cervix. The uterus is smooth in contour and has normal myometrial echogenicity. No visible fibroid. Adnexa: Both ovaries are visualized. There is normal color flow to the adnexa. There is no ovarian torsion. There is no pelvic ascites or fluid collection. There are no adnexal masses. Right ovary measures 9.0 x 5.6 x 6.9 cm. Volume = 182 mL. There is a large right ovarian simple cyst measuring 7.4 x 4.7 x 5.4 cm. (Previously this measured 5.4 x 4.9 x 6.7 cm on 11/27/2024). There is a smaller follicular cyst measuring 2.3 x 2.1 x 2.9 cm. Left ovary measures 3.1 x 2.3 x 1.8 cm. Volume = 6.7 mL. Normal sonographic appearance. US/US pelvic and transvaginal IMPRESSION: 1. No evidence of ovarian torsion. 2. There are 2 ovarian cysts, the larger measuring up to 7.4 cm. (Previously the large cyst measured 5.4 x 4.9 x 6.7 cm on 11/27/2024). 3. The IUD is malpositioned, within the lower uterine segment and cervix. This is unchanged from the prior exam. Electronically signed by: Jose Ospina MD 12/18/2024 05:02 PM [facility] Discharge Plan Discharge Clinical Impression: Right ovarian cyst Patient Disposition: Home, Self-Care Instructions: Ovarian Cyst (ED) Additional Instructions: You have 2 cysts on your right ovary, the larger 1 is slightly larger than it was when you were here 2 weeks ago. It was important that you follow-up with OBGYN. Use ibuprofen/Tylenol as needed for pain Prescriptions: No Action ParaGard T 380A 380 square mm intrauterine device intrauterine nabumetone 500 mg tablet 500 mg PO BID Qty: 40 0RF valacyclovir 500 mg tablet 500 mg PO Q12H PRN (Reason: Recurrent genital herpes) 3 Days Qty: 6 4RF Rx Instructions: Take at the 1st sign of outbreak meloxicam 15 mg tablet 15 mg PO DAILY PRN (Reason: pain) 30 Days Qty: 30 0RF Rx Instructions: Take it with food and full glass of water. Avoid other NSAIDs. tramadol 50 mg tablet 50 mg PO TID PRN (Reason: pain (scale score 7-10)) 10 Days Qty: 30 0RF naloxone [Narcan] 4 mg/actuation spray,non-aerosol 4 mg intranasal Q2M PRN (Reason: opioid overdose) Qty: 2 0RF Rx Instructions: spray 1 dose into ONE nostril; alternate nostrils w each dose until help arrives Print Language: Dominican
[2024-12-18 15:59] LABS: MANUAL DIFF FLAG NO
[2024-12-18 16:00] LABS: Basophils Percent Auto 0.4 % (0-2); Eosinophils Percent Auto 0.6 % (0-4); Hematocrit 36.3 % (37.0-47.0); Hemoglobin 12.4 g/dl (12.0-16.0); Imm Gran Abs Auto 0.01 X10*3/uL (0.00-0.03); Imm Gran Pct Auto 0.1 % (0.0-0.4); Lymphocytes Percent Auto 27.8 % (20-40); Mean Corpuscular HGB Conc 34.2 g/dl (31.0-35.0); Mean Corpuscular Volume 87.9 fL (80.0-98.0); Mean Platelet Volume 10.3 fL (9.4-12.3); Monocytes Absolute Auto 0.5 X10*3/uL (0.1-1.2); Monocytes Percent Auto 6.3 % (2-11); Neutrophils Absolute Auto 4.7 x10*3/uL (2.0-8.3); Neutrophils Percent Auto 64.8 % (45-73); Platelet Count 274 X10*3/uL (160-400); Red Blood Count 4.13 X10*6/uL (4.20-5.50); Red Cell Distribution Width 12.2 % (11.0-16.0); White Blood Count 7.3 X10*3/uL (4.8-10.8)
[2024-12-18 16:01] LABS: Appearance Urine Clear; Color Urine Yellow; Glucose Urine UA Negative (Negative); Leukocyte Esterase Urine Small (1+) (Negative); Nitrite Urine Negative (Negative); Specific Gravity - Urine 1.015 (1.005-1.025); UMIC TRIGGER UACC YES; Urine Blood Trace (Negative); Urine Ketones Negative (Negative); Urine Protein Negative (Neg-Trace)
[2024-12-18 16:06] LABS: Bacteria Urine Trace (None Seen); Hyaline Casts Urine 0-2 /LPF (0-2); UACC Culture Trigger YES
[2024-12-18 16:12] LABS: Anion Gap 11 (12-20); Blood Urea Nitrogen 13 mg/dL (9-16); Calcium 9.9 mg/dL (8.4-10.2); Carbon Dioxide 23 mmol/L (22-29); Chloride 108 mmol/L (96-108); Creatinine Clr Calc Pharmacy 138.6; Estimated Glomerular Filt Rate > 60; Glucose Random 91 mg/dL (60-115); Potassium 4.2 mmol/L (3.3-5.1); Sodium 138 mmol/L (135-145)
[2024-12-18 16:21] LABS: HCG Quantitative < 2 mIU/mL
[2024-12-18 19:13] VITALS: BP 137/88; PULSE 90; RESP 16; TEMP 36.7; O2SAT 98
== END 2024-12-18 19:15 | disposition home or self-care (01) ==
PROVIDERS: Physician Assistant; Emergency Provider Emergency Medicine; PCP Internal Medicine
DX: N83.291 Other ovarian cyst, right side (principal); R10.2 Pelvic and perineal pain; Z79.899 Other long term (current) drug therapy
CPT/HCPCS: 36415; 76830; 76856; 80048; 81001; 84702; 85025; 87086; 93975; 99282; 99284

== ENCOUNTER → 2024-12-18 14:23 | Outpatient (BNV) | payer OTHER, SELFPAY | PROVIDERS: PCP Internal Medicine; Visit Provider Radiology Diagnostic Radiology | DX: N83.201 Unspecified ovarian cyst, right side (principal); N83.202 Unspecified ovarian cyst, left side; T83.32XA Displacement of intrauterine contraceptive device, initial encounter | CPT/HCPCS: 76830; 76856; 93975 ==

== ENCOUNTER 2024-12-25 11:25 | Outpatient (AMB) | payer OTHER, SELFPAY ==
--- NOTE | 2024-12-25 11:21 | A.OFFPC_ITS ---
Intake Visit Reasons: back pain Ok'd by Dr. Torres Intake Note: Pt is having a telehealth vist regarding her back pain and says tramadol isn't working Allergies Penicillins Allergy (Severe, Verified 12/25/24 11:32) rash Medication List - Last Reconciled 12/25/24 by Melly Medrano MD copper (ParaGard T 380A) intrauterine valacyclovir 500 mg PO Q12H PRN 3 days Tobacco use date assessed: 12/25/24 Dental Screening Dental Screen Date: 12/25/24 Did you have a dental visit in the last 12 months?: Yes Did you have a dental problem in the last 6 months where you did not have access to dental care?: Yes Was dental information given to patient?: Patient has dentist HPI back pain Ok'd by Dr. Torres HPI Details 24-year-old female with history of lumba r disc herniation status post right L5-S1 microdiskectomy on 09/25/[address] Leblanc, here today wanting to see if she can get some relief from continuing pain in her right lower back going down her right leg. Patient states that she still has some numbness and tingling going down her right lower extremity similar to preop. She already has been seen by [facility] neurosurgery earlier this year for the same complaint and was prescribed Medrol Dosepak and muscle relaxant which she says did not help at all. Patient states that that her neurosurgeon was not able to prescribe her any pain medications as she is more than 30 days postoperative. She has an appointment on 12/30/2024 for a repeat MRI of lumbar spine and is scheduled to follow-up with them on 01/01/2025 to discuss results. She denies urine incontinence or leg weakness accompanying above symptoms. [facility] Medical History (Updated 12/27/24 @ 01:03 by Melly Medrano MD) History of herpes genitalis Right ovarian cyst Chronic headaches Lumbar back pain with radiculopathy affecting lower extremity History of anxiety disorder Surgical History (Updated 12/27/24 @ 01:03 by Melly Medrano MD) History of lumbar discectomy History of adenoidectomy Hx of tonsillectomy History of appendectomy Family History Father Morbid obesity Mother Essential hypertension Depression Paternal Grandfather Diabetes mellitus Paternal Uncle Diabetes mellitus Social History Housing: House Patient Tobacco Use Status: Never used Tobacco e-Cigarette/Vaping Use: Currently Using service: Yes Current occupational status: employed Current occupation: [employer] Current occupational exposures/hazards: Yes Cognitive needs: No Hearing needs: No Vision needs: No Questionnaire PHQ-9 Over the last 2 weeks, how often have you been bothered by any of the following problems? 1. Little interest or pleasure in doing things: not at all 2. Feeling down, depressed, or hopeless: not at all 3. Trouble falling or staying asleep, or sleeping too much: not at all 4. Feeling tired or having little energy: not at all 5. Poor appetite or overeating: not at all 6. Feeling bad about yourself - or that you are a failure or have let yourself or your family down: not at all 7. Trouble concentrating on things, such as reading the newspaper or watching television: not at all 8. Moving or speaking so slowly that other people could have noticed. Or the opposite - being so fidgety or restless that you have been moving around a lot more than usual: not at all 9. Thoughts that you would be better off or of hurting yourself in some way: not at all Total score: 0 Depression Screening Interpretation: Negative Depression Screening Done: Yes 11999 - PHQ-9 Billing: Yes Source: Developed by Drs. Bob Abdul, Sharita Euceda, Thanh Han and colleagues, with an educational giovanny from [employer]. Thrive Questionnaire Date Thrive assessed: 12/25/24 I am a: Patient What is your living situation today?: I have a steady place to live Within the past 12 months, did the food you bought not last and you didn't have the money to get more?: Never true Within the past 12 months, did you worry whether your food would run out before you got money to buy more?: Never true Do you have trouble paying for medicines?: No Do you have trouble getting transportation to medical appointments?: No Do you have trouble paying your heating and electricity bill?: No Do you have trouble taking care of your child, family member or friend?: No Do you have trouble with day-to-day activities such as bathing, preparing meals, shopping, managing finances, etc.?: No Are you currently unemployed and looking for a job?: No Are you interested in more education?: No THRIVE Score: 0 AUDIT C Alcohol Use Questionnaire (AUDIT-C) 1. How often do you have a drink containing alcohol?: Never Total Score: 0 THU-7 AMB Questionnaire THU-7 Date THU - 7 assessed: 12/25/24 Feeling nervous, anxious, or on edge: 0 = Not at all Not being able to stop or control worryin = Not at all Worrying too much about different things: 0 = Not at all Trouble relaxin = Not at all Being so restless that it is hard to sit still: 0 = Not at all Becoming easily annoyed or irritable: 0 = Not at all Feeling afraid as if something awful might happen: 0 = Not at all Total THU-7 score (0-4 normal; 5-9 mild; 10-14 moderate; 15-21 severe): 0 Source: Developed by Drs. Bob Abdul, Sharita Euceda, Thanh Han and colleagues, with an educational giovanny from [employer]. THU-7 Assessment Billing THU-7 Assessment Tool: THU-7 Assessment 60284 Review of Systems Const Denies fever(s) and Denies weakness Eyes Denies change in vision ENT Denies dizziness and Denies disequilibrium Card Denies chest pain and Denies dyspnea Resp Denies chest congestion, Denies cough, Denies dyspnea and Denies wheezing GI Denies abdominal pain, Denies change in bowel habits and Denies heartburn Denies hematuria, Denies urinary frequency, Denies dysuria, Denies urinary incontinence and Denies urinary urgency Musc Reports as per HPI Neuro Reports as per HPI, Denies dizziness, Denies lack of coordination, Denies focal weakness, Reports paresthesias (Going down right lower extremity in buttock), Denies disequilibrium and Denies weakness Psych Reports no additional complaints Jerry/Lymph Denies easy bruising Aller/Immun Denies seasonal rhinorrhea and Denies wheezing Physical exam (Primary Care) Tobacco/Smoking Status: Tobacco use Status Tobacco use date assessed 12/25/24 12/25/24 11:23 Patient Tobacco Use Status Never used Tobacco 12/25/24 11:23 e-Cigarette/Vaping Use Currently Using 12/25/24 11:23 PHQ-9: PHQ-9 Score PHQ-9: Total score 0 12/25/24 11:50 Depression Screening Interpretation: Negative Thrive Assessment: Date of Thrive Assessment Date Thrive assessed 12/25/24 12/25/24 11:25 Telehealth Telehealth Telehealth Platform: [employer] Location of provider rendering services: practice address Location of patient: address on file Patient Identification confirmed using: Name, : Yes Telehealth method: video Patient verbally consented to treatment: Yes Patient verbally consented to billing insurance company: Yes Patient informed of any privacy concerns related to visit: Yes Minutes spent on Phone/Video with Pt.: 15 Coding Level of Care Code Tele Est Pt Level 3 (86776) Diagnoses Lumbar disc herniation with radiculopathy M51.16 Postoperative back pain G89.18; M54.9 Additional Codes PHQ-9 - 07169 - PHQ-9 Billing: Yes ([id number]) THU-7 Assessment Billing - THU-7 Assessment Tool: THU-7 Assessment 44820 ([id number]) Assessment & Plan Assessment & Plan (1) Lumbar disc herniation with radiculopathy: Code(s): M51.16 - Intervertebral disc disorders with radiculopathy, lumbar region Category: Medical (2) Postoperative back pain: Code(s): G89.18 - Other acute postprocedural pain; M54.9 - Dorsalgia, unspecified Category: Medical Plan Will give her a temporary prescription for hydrocodone-acetaminophen, 5-325 mg per tablet to take 1 tablet once a day only reserved for severe pain. She has an appointment for lumbar MRI to be repeated again on 12/30/[address] Leblanc, has a follow-up appointment with an on 01/01/2025 to discuss results of MRI and treatment options. Prescription also sent for ondansetron 4 mg per tablet to take 1 tablet only as needed for episodes of nausea. Patient is currently back to work but has restrictions set by her neurosurgeon. Medications: New ondansetron HCl 4 mg PO DAILY PRN 10 tabs 0RF nausea and vomiting hydrocodone-acetaminophen 5-325 mg Partial Fill upon patient request. 1 tab PO DAILY PRN 10 tabs 0RF pain, severe M51.16 - Intervertebral disc disorders with radiculopathy, lumbar region
--- OUTSIDE RECORDS SUMMARY | 2024-12-25 12:33 | XMS_ITS | Continuity of Care Document ---
Author Name [facility] Organization [facility] Care Team Providers Care Bench Molder Name Role Phone [facility] Unavailable Unavailable Problems Combined list of problems from Department of Defense and Veterans Affairs facilities. It does not include entries that were removed or entered in error. Problem Status Onset Date Problem Type Date of Resolution Comments Source Low back pain, unspecified Active 12/08/19 25 Diagnosis [facility] [place] Intervertebral disc disorders with radiculopathy, lumbar region Active 12/08/19 25 Diagnosis [facility] [place] Intervertebral disc disorders with radiculopathy, lumbar region Active 11/06/19 25 Diagnosis [facility] [place] Low back pain, unspecified Active 11/06/19 25 Diagnosis [facility] [place] Encounter for examination and observation for other specified reasons Active 09/16/20 24 Diagnosis [facility] [place] Intervertebral disc disorders with radiculopathy, lumbar region Active 09/16/20 24 Diagnosis [facility] [place] Low back pain, unspecified Active 09/16/20 24 Diagnosis [facility] [place] Encounter for pre-employment examination Active 07/21/20 24 Diagnosis [facility] [place] Insomnia, unspecified Active Condition DoD Adjustment disorder Active Condition [facility] Appendicitis Active Condition [facility] Chronic post[facility]traumatic stress disorder Active Condition [facility] Gastroesophageal reflux disease Active Condition [facility] Genital herpes simplex type 2 Active Condition [facility] Low back [facility] Active Condition [facility] Migraine Active Condition [facility] Pain of right knee region Active Condition [facility] Rhinitis Active Condition [facility] Severe major depression without psychotic features Active Condition [facility] Soft tissue mass Active Condition [facility] Bilateral acute allergic otitis media of middle ears Inactive Condition 04/15/2023 [facility] Low back pain, unspecified Active Condition [facility] [place] Pain in left knee Active Condition Unkn own Organization Intervertebral disc disorders with radiculopathy, lumbar region Active Condition [facility] [place] Tobacco user1 Active Condition Proble m added based off tobacco use documented in social history Unknown Organization Diagnosis: ICD-10-CM Z39.2 Encounter for routine follow-up Active Diagnosis [facility] Medications Combined list of outpatient medications from Department of Defense and Veterans Affairs facilities.Medications provided include 1) outpatient medications from the last 15 months, and 2) patient-reported medications. Medication Details Route Status Patient Instructions Prescription Expires Prescription Number Last Dispense Date Ordering Provider Order Date Order Qty Source Benzonatate (RelateIQ) 100 CAPSULE in 1 BOTTLE Active [id number] 11/27/19 2 4 2023 45 Pharmac y Data Transac tion Service Facilit y CETIRIZINE HCL (cetirizine HCl), 10 MG, TABLET, ORAL, 'S LAB, 500 ea. BOTTLE Cancele d [id number] : 2023 0 Pharmac y Data Transac tion Service Facilit y Flexeril 10 mg oral tablet 1 tab(s), Oral, TID, TAKE 1 TAB PO BEFORE BED, # 14 tab(s), 0 total refill(s ), Acute, Pharmacy : [facility] Oral (given by mouth) Complet ed 03/24/2021 14.0 0208C-N HCP 13 [facility] IBUPROFEN (ibuprofen) , 600 MG, TABLET, ORAL, [facility], 500 ea. 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 Oral (given by mouth) Complet ed 01/12/2021 120.0 0208C-N HCP 13 [facility] Lexapro 10 mg oral tablet 1 tab(s), Oral, Daily, # 30 tab(s), 0 total refill(s ), Maintena nce, [facility] Oral (given by mouth) Ordered 30.0 0208C-N [facility] 13 [facility] naproxen 500 mg oral tablet 1 tab(s), Oral, BID, TAKE 1 TAB PO 2X A DAY, # 30 tab(s), 0 total refill(s ), Acute, 03/24/21 2:00:00 AM CDT, Pharmacy : [facility] Oral (given by mouth) Complet ed 03/24/2021 30.0 0208C-N HCP 13 [facility] ONDANSETRON ODT (ONDANSETRO N), 4 MG, TAB RAPDIS, ORAL, [facility], 30 ea. BLIST PACK Active [id number] 2023 12 Pharmac y Data Transac tion Service Facilit y PROzac 20 mg oral capsule 1 cap(s), Oral, Daily, Take one cap by mouth every morning. 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 It does not include entries that were removed or entered in error. Substance Category Reaction Severity Reaction type Status Date Reported Comments Source PENICILLIN Propensity to adverse reactions to drug (finding) Eruption active 2 [facility] PENICILLINS Drug allergy (disorder) Rash active 7 [facility] penicillins Propensity to adverse reactions to substance Rash Active Unknown Organizati on Immunizations Combined list of available immunizations from the Department of Defense and Veterans Affairs facilities. Immunization Series Date Given Administered By Site Reaction Lot Number CVX Code Drug Telecommunications Specialist Status Comments Source TDAP 2022 115 complet ed [facility] INFLUENZA, UNSPECIFIED FORMULATION 2022 88 complet [facility] COVID-19 (PFIZER), MRNA, LNP-S, PF, 30 MCG/0.3 ML DOSE 2 2020 208 complet ed [facility] COVID-19 (PFIZER), MRNA, LNP-S, PF, 30 MCG/0.3 ML DOSE 1 2020 208 complet ed [facility] influenza, injectable, quadrivalent, contains preservative 0 2019 [id number] 158 Seqirus (SEQ) complet ed influenza , injectabl e, quadrival ent, contains preservat nicole DoD influenza, injectable, quadrivalent 2018 [id number] 158 Seqirus complet ed influenza , injectabl e, quadrival ent 09/23/19 Given Ambulat ory Pharmac y influenza, injectable, quadrivalent, contains preservative 0 2018 [id number] 988 158 Seqirus (SEQ) complet ed influenza , injectabl e, quadrival ent, contains preservat nicole DoD varicella virus vaccine 0 2017 21 () Not Given varicella virus vaccine DoD influenza, injectable, quadrivalent 2017 zzL t Arm [id number] 1A 158 Seqirus complet ed influenza , injectabl e, quadrival ent 09/05/18 Given Ambulat ory Pharmac y influenza, injectable, quadrivalent, contains preservative 1 2017 [id number] 1A 158 Seqirus (SEQ) complet ed influenza , injectabl e, quadrival ent, contains preservat nicole DoD hepatitis B pediatric/ado lescent 2017 [id number] 08 GlaxoSmithKli ne complet ed hepatitis B pediatric /adolesce nt 03/13/18 Given Ambulat ory Pharmac y hepatitis B vaccine, pediatric or pediatric/ado lescent dosage 3 2017 [id number] 08 SmithKline (SKB) complet ed hepatitis B vaccine, pediatric or pediatric /adolesce nt dosage DoD measles and rubella virus vaccine 0 2016 04 () Not Given measles and rubella virus vaccine DoD varicella virus vaccine 0 2016 21 () Not Given varicella virus vaccine DoD hepatitis A vaccine, adult dosage 0 2016 52 () Not Given hepatitis A vaccine, adult dosage DoD hepatitis B pediatric/ado lescent 2016 UNK 08 GlaxoSmithKli ne complet ed hepatitis B pediatric /adolesce nt 10/03/17 Given Ambulat ory Pharmac y hepatitis B vaccine, pediatric or pediatric/ado lescent dosage 2 2016 UNK 08 SmithKline (SKB) complet ed hepatitis B vaccine, pediatric or pediatric /adolesce nt dosage DoD poliovirus vaccine, inactivated 2016 zzLef t Arm [id number] 10 sanofi pasteur complet ed polioviru s vaccine, inactivat ed 09/02/17 Given Ambulat ory Pharmac y hepatitis B pediatric/ado lescent 2016 zzLef t Arm [id number] 08 GlaxoSmithKli ne complet ed hepatitis B pediatric /adolesce nt 09/02/17 Given Ambulat ory Pharmac y Influenza, inj, MDCK, quadrivalent- pf 2016 zzLef t Arm [id number] Seqirus complet ed Influenza , inj, MDCK, quadrival ent-pf 09/02/17 Given Ambulat ory Pharmac y hepatitis B vaccine, pediatric or pediatric/ado lescent dosage 1 2016 NICOLE WADSWORTH [id number] 08 AlexKline (SKB) complet ed hepatitis B vaccine, pediatric or pediatric /adolesce nt dosage DoD poliovirus vaccine, inactivated 1 2016 NICOLE WADSWORTH [id number] 10 Sanofi Pasteur (PMC) complet ed polioviru s vaccine, inactivat ed DoD Influenza, injectable, Madin [place]eta Canine Kidney, preservative free, quadrivalent 1 2016 NICOLE WADSWORTH [id number] Seqirus (SEQ) complet ed Influenza , injectabl e, Madin [place] Canine Kidney, preservat nicole free, quadrival ent DoD adenovirus vaccine, live 2016 [id number] 9 143 Teva Pharmaceutica ls complet ed adenoviru s vaccine, live 07/26/17 Given Ambulat ory Pharmac y tetanus, diphtheria, acellular pertu is 2016 zzLef t Arm [id number] 115 GlaxoSmithKli ne complet ed tetanus, diphtheri a, acellular pertussis 9/22/17 Given Ambulat ory Pharmac y meningococcal oligosacchari de (MCV4O) 2016 zzRig ht Arm [id number] 136 sanofi pasteur complet ed meningoco ccal oligosacc haride (MCV4O) 07/26/17 Given Ambulat ory Pharmac y tuberculin purified protein derivative 2016 zzLef t Arm [id number] 96 sanofi pasteur complet ed tuberculi n purified protein derivativ e 07/26/17 Given Ambulat ory Pharmac y tuberculin skin test; purified protein derivative solution, intradermal 1 2016 GRAEME KUMARI [id number] 96 Sanofi Pasteur (PMC) complet ed tuberculi n skin test; purified protein derivativ e solution, intraderm al DoD tetanus toxoid, reduced diphtheria toxoid, and acellular pertu is vaccine, adsorbed 1 2016 GRAEME KUMARI [id number] 115 SmithKline (SKB) complet ed tetanus toxoid, reduced diphtheri a toxoid, and acellular pertussis vaccine, adsorbed DoD meningococcal oligosacchari de (groups A, C, Y and W-135) diphtheria toxoid conjugate vaccine (MCV4O) 1 2016 GRAEME KUMARI [id number] 136 Sanofi Pasteur (PMC) complet ed meningoco ccal oligosacc haride (groups A, C, Y and W-135) diphtheri a toxoid conjugate vaccine (MCV4O) DoD Adenovirus, type 4 and type 7, live, oral 1 2016 GRAEME KUMARI [id number] 9 143 [facility] (BRR) complet ed Adenoviru s, type 4 and type 7, live, oral DoD TDAP 2016 115 complet ed [facility] Results Combined list of recent chemistry, hematology and other laboratory results from Department of Defense and Veterans Affairs, ranging from 15 months to all on record, depending upon the facility. Order Name Results Value Reference Range Date Interpretation Specimen Comments Source Urinalys is UA Color Yellow *NA* (07/08/24 11:18 AM) 07/08 [facility] [place] Urinalys is UA Clarity Clear *NA* (07/08/24 11:18 AM) 07/08 [facility] [place] Urinalys is UA pH 6.5 *NA* (07/08/24 11:18 AM) 07/08 [facility] [place] Urinalys is UA Spec [place] 1.025 *NA* (07/08/24 11:18 AM) 07/08 [facility] [place] Urinalys is UA Glucose Negative *NA* (07/08/24 11:18 AM) Negative 07/08 [facility] [place] Urinalys is UA Ketones Negative (07/08/24 11:18 AM) Negative 07/08 N [facility] [place] Urinalys is UA Blood Negative *NA* (07/08/24 11:18 AM) Negative 07/08 [facility] [place] Urinalys is UA Protein Negative *NA* (07/08/24 11:18 AM) Negative 07/08 [facility] Urinalys is UA Bili Negative *NA* (07/08/24 11:18 AM) Negative 07/08 [facility] Urinalys is UA Urobilinog en 0.2 *NA* (07/08/24 11:18 AM) 07/08 [facility] Urinalys is UA Nitrite Negative (07/08/24 11:18 AM) Negative 07/08 N [facility] Urinalys is UA Leuk Esterase Trace *ABN* (07/08/24 11:18 AM) Negative 07/08 A [facility] [place] Urinalys is UA RBC None Seen 1 (07/08/24 11:18 AM) None Seen 07/08 N Interpretiv e Data: Reference Range UA WBC? 0-2 / HPF UA RBC? 0-2/ HPF [facility] [place] Urinalys is UA WBC 1-2 (07/08/24 11:18 AM) None Seen 07/08 N [facility] Urinalys is UA Bacteria Moderate *ABN* (07/08/24 11:18 AM) None Seen 07/08 A [facility] Urinalys is UA Epi Squam Moderate *ABN* (07/08/24 11:18 AM) 07/08 A [facility] CBC LEUKOCYTES [#/VOLUME] IN BLOOD BY AUTOMATED COUNT 6.99 10*3/uL 3.98 - 10.04 04/16 Specimen Type: BLOOD No comment entered. Ordering Provider: NORM MOYA Report Released Date/Time: Feb 26, 2023 03:25 PM Reporting Lab: [facility] [address] [facility] [address] Performing Lab: [facility] [address] CBC ERYTHROCYT ES [#/VOLUME] IN BLOOD BY AUTOMATED COUNT 4.39 10*6/uL 3.93 - 5.22 04/16 Specimen Type: BLOOD No comment entered. Ordering Provider: NORM MOYA Report Released Date/Time: Feb 26, 2023 03:25 PM Reporting Lab: [facility] [address] [facility] [address] Performing Lab: [facility] [address] [facility] [phone] [place] [address] CBC HEMOGLOBIN [MASS/VOLU ME] IN BLOOD 13.7 g/dL 11.2 - 15.7 04/16 Specimen Type: BLOOD No comment entered. Ordering Provider: NORM MOYA Report Released Date/Time: Feb 26, 2023 03:25 PM Reporting Lab: [facility] [address] [facility] [address] Performing Lab: [facility] [address] [facility] [phone] [place] [address] CBC HEMATOCRIT [VOLUME FRACTION] OF BLOOD BY AUTOMATED COUNT 39.3 34.1 - 44.9 04/16 Specimen Type: BLOOD No comment entered. Ordering Provider: NORM MOYA Report Released Date/Time: Feb 26, 2023 03:25 PM Reporting Lab: [facility] [address] [facility] [address] Performing Lab: [facility] [address] [facility] [phone] [place] [address] CBC MCV [ENTITIC VOLUME] BY AUTOMATED COUNT 89.5 fL 76.4 - 100.7 04/16 Specimen Type: BLOOD No comment entered. Ordering Provider: NORM MOYA Report Released Date/Time: Feb 26, 2023 03:25 PM Reporting Lab: [facility] [address] [facility] [address] Performing Lab: [facility] [address] [facility] [phone] [place] [address] CBC MCH [ENTITIC MASS] BY AUTOMATED COUNT 31.2 pg 25.1 - 34.9 04/16 Specimen Type: BLOOD No comment entered. Ordering Provider: NORM MOYA Report Released Date/Time: Feb 26, 2023 03:25 PM Reporting Lab: [facility] [address] [facility] [address] Performing Lab: [facility] [address] [facility] [phone] [place] [address] CBC MCHC [MASS/VOLU ME] BY AUTOMATED COUNT 34.9 g/dL 31.5 - 36.2 04/16 Specimen Type: BLOOD No comment entered. Ordering Provider: NORM MOYA Report Released Date/Time: Feb 26, 2023 03:25 PM Reporting Lab: [facility] [address] [facility] [address] Performing Lab: [facility] [address] [facility] [address] [facility] CBC PLATELETS [#/VOLUME] IN BLOOD BY AUTOMATED COUNT 242 10*3/uL 182 - 369 04/16 Specimen Type: BLOOD No comment entered. Ordering Provider: NORM MOYA Report Released Date/Time: Feb 26, 2023 03:25 PM Reporting Lab: [facility] [address] [facility] [address] Performing Lab: [facility] [address] [facility] [phone] [place] [address] CBC PLATELET MEAN VOLUME [ENTITIC VOLUME] IN BLOOD BY AUTOMATED COUNT 11.1 fL 8.4 - 12.7 04/16 Specimen Type: BLOOD No comment entered. Ordering Provider: NORM MOYA Report Released Date/Time: Feb 26, 2023 03:25 PM Reporting Lab: [facility] [address] [facility] [address] Performing Lab: [facility] [address] [facility] [phone] [place] [address] CBC ERYTHROCYT E DISTRIBUTI ON WIDTH [RATIO] BY AUTOMATED COUNT 11.9 10.8 - 16.1 04/16 Specimen Type: BLOOD No comment entered. Ordering Provider: NORM MOYA Report Released Date/Time: Feb 26, 2023 03:25 PM Reporting Lab: [facility] [address] [facility] [address] Performing Lab: [facility] [address] [facility] [phone] [place] [address] CBC LYMPHOCYTE S/100 LEUKOCYTES IN BLOOD BY AUTOMATED COUNT 29.5 19.3 - 51.7 04/16 Specimen Type: BLOOD No comment entered. Ordering Provider: NORM MOYA Report Released Date/Time: Feb 26, 2023 03:25 PM Reporting Lab: [facility] [address] [facility] [address] Performing Lab: [facility] [address] [facility] [address] [facility] CBC MONOCYTES/ 100 LEUKOCYTES IN BLOOD 6.7 3.5 - 12.9 04/16 Specimen Type: BLOOD No comment entered. Ordering Provider: NORM MOYA Report Released Date/Time: Feb 26, 2023 03:25 PM Reporting Lab: [facility] [address] [facility] [address] Performing Lab: [facility] [address] [facility] [address] [facility] CBC NEUTROPHIL S/100 LEUKOCYTES IN BLOOD BY AUTOMATED COUNT 62.3 42.8 - 81.9 04/16 Specimen Type: BLOOD No comment entered. Ordering Provider: NORM MOYA Report Released Date/Time: Feb 26, 2023 03:25 PM Reporting Lab: [facility] [address] [facility] [address] Performing Lab: [facility] [address] [facility] [phone] [place] [address] CBC EOSINOPHIL S/LEUKOCYT ES [PURE NUMBER FRACTION] IN BLOOD BY AUTOMATED COUNT 1.0 0.0 - 6.1 04/16 Specimen Type: BLOOD No comment entered. Ordering Provider: NORM MOYA Report Released Date/Time: Feb 26, 2023 03:25 PM Reporting Lab: [facility] [address] [facility] [address] Performing Lab: [facility] [address] [facility] [address] [facility] CBC BASOPHILS/ 100 LEUKOCYTES IN BLOOD BY AUTOMATED COUNT 0.4 0.1 - 1.2 04/16 Specimen Type: BLOOD No comment entered. Ordering Provider: NORM MOYA Report Released Date/Time: Feb 26, 2023 03:25 PM Reporting Lab: [facility] [address] [facility] [place] [address] Performing Lab: [facility] [address] [facility] [phone] [place] [address] CBC EOSINOPHIL S [#/VOLUME] IN BLOOD BY AUTOMATED COUNT 0.07 10*3/uL 0.00 - 0.43 04/16 Specimen Type: BLOOD No comment entered. Ordering Provider: NORM MOYA Report Released Date/Time: Feb 26, 2023 03:25 PM Reporting Lab: [facility] [address] [facility] [place] [address] Performing Lab: [facility] [address] [facility] [phone] [place] [address] CBC NEUTROPHIL S [#/VOLUME] IN BLOOD BY AUTOMATED COUNT 4.35 10*3/uL 1.57 - 7.95 04/16 Specimen Type: BLOOD No comment entered. Ordering Provider: NORM MOYA Report Released Date/Time: Feb 26, 2023 03:25 PM Reporting Lab: [facility] [address] [facility] [place] [address] Performing Lab: [facility] [address] [facility] [phone] [place] [address] CBC LYMPHOCYTE S [#/VOLUME] IN BLOOD BY AUTOMATED COUNT 2.06 10*3/uL 1.18 - 3.74 04/16 Specimen Type: BLOOD No comment entered. Ordering Provider: NORM MOYA Report Released Date/Time: Feb 26, 2023 03:25 PM Reporting Lab: [facility] [address] [facility] [address] Performing Lab: [facility] [address] [facility] [phone] [place] [address] CBC MONOCYTES [#/VOLUME] IN BLOOD BY AUTOMATED COUNT 0.47 10*3/uL 0.24 - 0.98 04/16 Specimen Type: BLOOD No comment entered. Ordering Provider: NORM MOYA Report Released Date/Time: Feb 26, 2023 03:25 PM Reporting Lab: [facility] [address] [facility] [address] Performing Lab: [facility] [address] [facility] [place] [phone] [place] [address] CBC BASOPHILS [#/VOLUME] IN BLOOD BY AUTOMATED COUNT 0.03 10*3/uL 0.01 - 0.09 04/16 Specimen Type: BLOOD No comment entered. Ordering Provider: NORM MOYA Report Released Date/Time: Feb 26, 2023 03:25 PM Reporting Lab: [facility] [address] [place] [address] Performing Lab: [facility] [address] [place] [phone] CBC IMMATURE CELLS/100 LEUKOCYTES IN BLOOD 0.1 0.0 - 0.8 04/16 Specimen Type: BLOOD No comment entered. Ordering Provider: NORM MOYA Report Released Date/Time: Feb 26, 2023 03:25 PM Reporting Lab: [facility] [address] [facility] [place] [address] Performing Lab: [facility] [address] [facility] [phone] CBC IMMATURE CELLS [#/VOLUME] IN BLOOD 0.01 10*3/uL 0.00 - 0.12 04/16 Specimen Type: BLOOD No comment entered. Ordering Provider: NORM MOYA Report Released Date/Time: Feb 26, 2023 03:25 PM Reporting Lab: [facility] [address] [facility] [place] [address] Performing Lab: [facility] [address] [facility] [place] [phone] [place] [address] CBC NRBC % 0.0 0.0 - 0.0 04/16 Specimen Type: BLOOD No comment entered. Ordering Provider: NORM MOYA Report Released Date/Time: Feb 26, 2023 03:25 PM Reporting Lab: [facility] [address] [facility] [place] [address] Performing Lab: [facility] [address] [facility] [place] [address] [facility] CBC NRBC # 0.00 10*3/uL 0.000 - 0.000 04/16 Specimen Type: BLOOD No comment entered. Ordering Provider: NORM MOYA Report Released Date/Time: Feb 26, 2023 03:25 PM Reporting Lab: [facility] [place] [address] [facility] [place] [id number] Performing Lab: [facility] [place] [address] [facility] [place] [id number] [place] [address] COMPREHE NSIVE METABOLI C PANEL CREATININE [MASS/VOLU ME] IN SERUM OR PLASMA 0.88 mg/dL 0.60 - 1.30 04/16 Specimen Type: PLASMA No comment entered. Ordering Provider: NORM MOYA Report Released Date/Time: Feb 26, 2023 03:25 PM Reporting Lab: [facility] [place] [address] [facility] [place] [id number] Performing Lab: [facility] [place] [address] [facility] [place] [address] [facility]PREHE NSIVE METABOLI C PANEL UREA NITROGEN [MASS/VOLU ME] IN SERUM OR PLASMA 13 mg/dL 6 - 24 04/16 Specimen Type: PLASMA No comment entered. Ordering Provider: NORM MOYA Report Released Date/Time: Feb 26, 2023 03:25 PM Reporting Lab: [facility] [place] [address] [facility] [place] [address] Performing Lab: [facility] [place] [address] [facility] [place] [phone] [place] [address] COMPREHE NSIVE METABOLI C PANEL GLUCOSE [MASS/VOLU ME] IN SERUM OR PLASMA 96 mg/dL 70 - 110 04/16 Specimen Type: PLASMA No comment entered. Ordering Provider: NORM MOYA Report Released Date/Time: Feb 26, 2023 03:25 PM Reporting Lab: [facility] [place] [address] [facility] [place] [address] Performing Lab: [facility] [place] [address] [facility] [place] [phone] [place] [address] COMPREHE NSIVE METABOLI C PANEL SODIUM [MOLES/VOL UME] IN SERUM OR PLASMA 137 mmol/L 135 - 145 04/16 Specimen Type: PLASMA No comment entered. Ordering Provider: NORM MOYA Report Released Date/Time: Feb 26, 2023 03:25 PM Reporting Lab: [facility] [place] [address] [place] [address] Performing Lab: [facility] [place] [address] [facility] [place] [phone] [place] [address] COMPREHE NSIVE METABOLI C PANEL POTASSIUM [MOLES/VOL UME] IN SERUM OR PLASMA 3.9 mmol/L 3.3 - 5.1 04/16 Specimen Type: PLASMA No comment entered. Ordering Provider: NORM MOYA Report Released Date/Time: Feb 26, 2023 03:25 PM Reporting Lab: [facility] [place] [address] [facility] [place] [phone] Performing Lab: [facility] [place] [address] [facility] [place] [phone] [place] [address] COMPREHE NSIVE METABOLI C PANEL CHLORIDE [MOLES/VOL UME] IN SERUM OR PLASMA 107 mmol/L 98 - 108 04/16 Specimen Type: PLASMA No comment entered. Ordering Provider: NORM MOYA Report Released Date/Time: Feb 26, 2023 03:25 PM Reporting Lab: [facility] [place] [address] [facility] [place] [address] Performing Lab: [facility] [place] [address] [facility] [place] [phone] [place] [address] COMPREHE NSIVE METABOLI C PANEL CARBON DIOXIDE, TOTAL [MOLES/VOL UME] IN SERUM OR PLASMA 23 mmol/L 25 - 33 04/16 L Specimen Type: PLASMA No comment entered. Ordering Provider: NORM MOYA Report Released Date/Time: Feb 26, 2023 03:25 PM Reporting Lab: [facility] [place] [address] [facility] [place] [address] Performing Lab: [facility] [place] [address] [facility] [place] [phone] [place] [address] COMPREHE NSIVE METABOLI C PANEL CALCIUM [MASS/VOLU ME] IN SERUM OR PLASMA 9.5 mg/dL 8.6 - 10.3 04/16 Specimen Type: PLASMA No comment entered. Ordering Provider: NORM MOYA Report Released Date/Time: Feb 26, 2023 03:25 PM Reporting Lab: [facility] [place] [address] [facility] [place] [address] Performing Lab: [facility] [place] [address] [facility] [place] [phone] [place] [address] COMPREHE NSIVE METABOLI C PANEL PROTEIN [MASS/VOLU ME] IN SERUM OR PLASMA 7.2 g/dL 6.5 - 8.2 04/16 Specimen Type: PLASMA No comment entered. Ordering Provider: NORM MOYA Report Released Date/Time: Feb 26, 2023 03:25 PM Reporting Lab: [facility] [place] [address] [facility] [place] [phone] Performing Lab: [facility] [place] [address] [facility] [place] [phone] [facility] [place] COMPREHE NSIVE METABOLI C PANEL ALBUMIN [MASS/VOLU ME] IN SERUM OR PLASMA 4.1 g/dL 3.3 - 4.8 04/16 Specimen Type: PLASMA No comment entered. Ordering Provider: NORM MOYA Report Released Date/Time: Feb 26, 2023 03:25 PM Reporting Lab: [facility] [place] [address] [facility] [place] [address] Performing Lab: [facility] [place] [address] [place] [phone] [place] [address] COMPREHE NSIVE METABOLI C PANEL BILIRUBIN. TOTAL [MASS/VOLU ME] IN SERUM OR PLASMA 0.9 mg/dL 0.3 - 1.2 04/16 Specimen Type: PLASMA No comment entered. Ordering Provider: NORM MOYA Report Released Date/Time: Feb 26, 2023 03:25 PM Reporting Lab: [facility] [place] [address] [place] [phone] Performing Lab: [facility] [place] [address] [place] [phone] COMPREHE NSIVE METABOLI C PANEL ALKALINE PHOSPHATAS E [ENZYMATIC ACTIVITY/V OLUME] IN SERUM OR PLASMA 88 [IU]/L 25 - 160 04/16 Specimen Type: PLASMA No comment entered. Ordering Provider: NORM MOYA Report Released Date/Time: Feb 26, 2023 03:25 PM Reporting Lab: [facility] [place] [address] [facility] [place] [address] Performing Lab: [facility] [place] [address] [facility] [place] [phone] [place] [address] COMPREHE NSIVE METABOLI C PANEL ASPARTATE AMINOTRANS FERASE [ENZYMATIC ACTIVITY/V OLUME] IN SERUM OR PLASMA 17 [IU]/L 15 - 41 04/16 Specimen Type: PLASMA No comment entered. Ordering Provider: NORM MOYA Report Released Date/Time: Feb 26, 2023 03:25 PM Reporting Lab: [facility] [place] [address] [place] [phone] Performing Lab: [facility] [place] [address] [facility] [place] [phone] [facility] [place] COMPREHE NSIVE METABOLI C PANEL ALANINE AMINOTRANS FERASE [ENZYMATIC ACTIVITY/V OLUME] IN SERUM OR PLASMA 23 [IU]/L 15 - 63 04/16 Specimen Type: PLASMA No comment entered. Ordering Provider: NORM MOYA Report Released Date/Time: Feb 26, 2023 03:25 PM Reporting Lab: [facility] [place] [address] [facility] [place] [address] Performing Lab: [facility] [place] [address] [facility] [place] [phone] [place] [address] COMPREHE NSIVE METABOLI C PANEL ANION GAP IN SERUM OR PLASMA 7.0 4.0 - 12.0 04/16 Specimen Type: PLASMA No comment entered. Ordering Provider: NORM MOYA Report Released Date/Time: Feb 26, 2023 03:25 PM Reporting Lab: [facility] [place] [address] [facility] [place] [address] Performing Lab: [facility] [place] [address] [facility] [place] [phone] COMPREHE NSIVE METABOLI C PANEL GLOMERULAR FILTRATION RATE/1.73 SQ M.PREDICTE D [VOLUME RATE/AREA] IN SERUM, PLASMA OR BLOOD BY CREATININE -BASED FORMULA (CKD-EPI) >90 04/16 Specimen Type: PLASMA No comment entered. Ordering Provider: NORM MOYA Report Released Date/Time: Feb 26, 2023 03:25 PM Reporting Lab: [facility] [place] [address] [facility] [place] [address] Performing Lab: [facility] [place] [address] [place] [phone] HEMOGLOB IN A1C HEMOGLOBIN A1C/HEMOGL OBIN.TOTAL IN BLOOD 5.3 4.2 - 5.8 04/16 Specimen Type: BLOOD Comment: Target A1c values should be individuali zed. Better understandi ng of A1c test result accuracy is essential if clinicians are to interpret results for Veterans, and discuss treatment options through the process of Shared Decision Making. Ordering Provider: NORM MOYA Report Released Date/Time: Feb 26, 2023 03:25 PM Reporting Lab: [facility] [place] [address] [facility] [place] [phone] Performing Lab: [facility] [place] [address] [facility] [place] [phone] [place] [address] LIPID PROFILE CHOLESTERO L [MASS/VOLU ME] IN SERUM OR PLASMA 182 mg/dL 120 - 200 04/16 Specimen Type: PLASMA No comment entered. Ordering Provider: NORM MOYA Report Released Date/Time: Feb 26, 2023 03:25 PM Reporting Lab: [facility] [place] [address] [facility] [place] [address] Performing Lab: [facility] [place] [address] [facility] [place] [phone] [place] [address] LIPID PROFILE TRIGLYCERI DE [MASS/VOLU ME] IN SERUM OR PLASMA 59 mg/dL 30 - 200 04/16 Specimen Type: PLASMA No comment entered. Ordering Provider: NORM OMYA Report Released Date/Time: Feb 26, 2023 03:25 PM Reporting Lab: [facility] [place] [address] [facility] [place] [phone] Performing Lab: [facility] [place] [address] [facility] [place] [phone] [place] [address] LIPID PROFILE CHOLESTERO L IN HDL [MASS/VOLU ME] IN SERUM OR PLASMA 55 mg/dL 35 - 70 04/16 Specimen Type: PLASMA No comment entered. Ordering Provider: NORM MOYA Report Released Date/Time: Feb 26, 2023 03:25 PM Reporting Lab: [facility] [place] [address] [facility] [place] [address] Performing Lab: [facility] [place] [address] [facility] [place] [phone] [place] [address] LIPID PROFILE CHOLESTERO L IN LDL [MASS/VOLU ME] IN SERUM OR PLASMA 108 mg/dL 80 - 130 04/16 Specimen Type: PLASMA No comment entered. Ordering Provider: NORM MOYA Report Released Date/Time: Feb 26, 2023 03:25 PM Reporting Lab: [facility] [place] [address] [place] [address] Performing Lab: [facility] [place] [address] THYROID FUNCTION (TSH & T4) THYROTROPI N [UNITS/VOL UME] IN SERUM OR PLASMA 0.74 u[IU]/mL 0.40 - 4.80 04/16 Specimen Type: PLASMA No comment entered. Ordering Provider: NORM MOYA Report Released Date/Time: Feb 26, 2023 03:25 PM Reporting Lab: [facility] [place] [address] [place] [address] Performing Lab: [facility] [place] [address] VITAMIN D, 25-HYDRO X 24R-HYDROX YCALCIDIOL [MASS/VOLU ME] IN SERUM OR PLASMA 33.3 ng/mL 32.0 - 100.0 04/16 Specimen Type: PLASMA No comment entered. Ordering Provider: NORM MOYA Report Released Date/Time: Feb 26, 2023 03:25 PM Reporting Lab: [facility] [place] [address] [place] [address] Performing Lab: [facility] [place] [address] Infectio us Disease Source of Test.LC Gen Force Test (02/22/21 9:41 AM) 02/22 N 0024[facility] Infectio us Disease HIV-1/2 AG/AB 4G CDD LC NEGATIVE 02/22 Result Comment: Performed At: 1 [facility] [address] [facility] [address] [place] [address] ÁNGEL CATHERINE PHD Ph:[phone] [address] [place] [address] Vital Signs Combined list of inpatient and outpatient Vital Signs from Department of Defense and Veterans Affairs, ranging from 12 months to all on record, depending upon the facility. Vital Sign Value Date Comments Source Systolic Blood Pressure 135 mm[Hg] 12/28/19 21 17:52:00 [facility]208[facility] 13 [facility] Diastolic Blood Pressure 84 mm[Hg] 021 17:52:00 0[facility] 13 [facility] Mean Arterial Pressure, Calc 101 mm[Hg] 12/28/2020 17:52:00 0[facility] 13 [facility] Peripheral Pulse Rate 76 bpm 12/28/2020 17:52:00 0[facility] 13 [facility] Respiratory Rate 16 br/min 12/28/2020 17:52:00 0[facility] 13 [facility] Temperature Oral 36.8 Ester 12/28/2020 17:52:00 0208[facility] 13 [facility] BP Site Right arm 12/28/2020 17:52:00 0208[facility] 13 [facility] Blood Pressure Manual Automatic 12/28/2020 17:52:00 0208[facility] 13 [facility] Systolic Blood Pressure 128 mm[Hg] 11/08/19 21 16:44:00 0208[facility] 13 [facility] Diastolic Blood Pressure 77 mm[Hg] 021 16:44:00 0208[facility] 13 [facility] Mean Arterial Pressure, Calc 94 mm[Hg] 11/08/2020 16:44:00 0208[facility] 13 [facility] Peripheral Pulse Rate 75 bpm 11/08/2020 16:44:00 0208[facility] 13 [facility] Respiratory Rate 16 br/min 11/08/2020 16:44:00 0208[facility] 13 [facility] Temperature Oral 36.8 Ester 11/08/2020 16:44:00 0208[facility] 13 [facility] BP Site Left arm 11/08/2020 16:44:00 0208[facility] 13 [facility] Blood Pressure Manual Automatic 11/08/2020 16:44:00 0208[facility] 13 [facility] Systolic Blood Pressure 120 mm[Hg] 12/21/19 00:11:00 0208[facility] 13 [facility] Diastolic Blood Pressure 78 mm[Hg] 00:11:00 0208[facility] 13 [facility] BP Site Left arm 12/21/2020 00:11:00 0208[facility] 13 [facility] Peripheral Pulse Rate 69 bpm 12/21/2020 00:11:00 0208[facility] 13 [facility] Mean Arterial Pressure, Calc 92 mm[Hg] 12/21/2020 00:11:00 0208[facility] 13 [facility] Respiratory Rate 14 br/min 12/21/2020 00:11:00 0208[facility] 13 [facility] Oxygen Saturation 99 % 12/21/2020 00:11:00 0208[facility] 13 [facility] Systolic Blood Pressure 111 mm[Hg] 07/08/20 15:27:00 [facility] Diastolic Blood Pressure 61 mm[Hg] 15:27:00 [facility] Respiratory Rate 16 br/min 07/08/2024 15:27:00 [facility] Temperature Temporal 36.8 Ester 07/08/2024 15:27:00 [facility] Peripheral Pulse Rate 76 bpm 07/08/2024 15:27:00 [facility] Mean Arterial Pressure, Calc 78 mm[Hg] 07/08/2024 15:27:00 [facility] Systolic Blood Pressure 111 mm[Hg] 07/21/20 24 15:11:00 [facility] Diastolic Blood Pressure 66 mm[Hg] 024 15:11:00 [facility] Respiratory Rate 16 br/min 07/21/2024 15:11:00 [facility] Temperature Temporal 36.7 Seter 07/21/2024 15:11:00 [facility] Peripheral Pulse Rate 92 bpm 07/21/2024 15:11:00 [facility] Mean Arterial Pressure, Calc 81 mm[Hg] 07/21/2024 15:11:00 [facility] Systolic Blood Pressure 131 mm[Hg] 12/30/19 00:45:00 0[facility] 13 [facility] Diastolic Blood Pressure 90 mm[Hg] 021 00:45:00 0208[facility] 13 [facility] BP Site Left arm 12/30/2020 00:45:00 0208[facility] 13 [facility] Peripheral Pulse Rate 81 bpm 12/30/2020 00:45:00 0208[facility] 13 [facility] Mean Arterial Pressure, Calc 104 mm[Hg] 12/30/2020 00:45:00 0208[facility] 13 [facility] Respiratory Rate 14 br/min 12/30/2020 00:45:00 0208[facility] 13 [facility] Oxygen Saturation 99 % 12/30/2020 00:45:00 0208[facility] 13 [facility] Systolic Blood Pressure 125 mm[Hg] 12/13/19 21:43:00 0208[facility] 13 [facility] Diastolic Blood Pressure 77 mm[Hg] 021 21:43:00 0208[facility] 13 [facility] Mean Arterial Pressure, Calc 93 mm[Hg] 12/13/2020 21:43:00 0208[facility] 13 [facility] Peripheral Pulse Rate 85 bpm 12/13/2020 21:43:00 0208[facility] 13 [facility] Respiratory Rate 16 br/min 12/13/2020 21:43:00 0208[facility] 13 [facility] Temperature Oral 36.9 Ester 12/13/2020 21:43:00 0208[facility] 13 [facility] BP Site Right arm 12/13/2020 21:43:00 0208[facility] 13 [facility] Blood Pressure Manual Automatic 12/13/2020 21:43:00 0208[facility] 13 [facility] Systolic Blood Pressure 123 mm[Hg] 04/21/20 21 21:44:00 0208[facility] 13 [facility] Diastolic Blood Pressure 82 mm[Hg] 021 21:44:00 0208[facility] 13 [facility] Mean Arterial Pressure, Calc 96 mm[Hg] 02/22/2021 21:44:00 0208[facility] 13 [facility] Peripheral Pulse Rate 97 bpm 02/22/2021 21:44:00 0208[facility] 13 [facility] Respiratory Rate 16 br/min 02/22/2021 21:44:00 0208[facility] 13 [facility] Temperature Oral 36.6 Ester 02/22/2021 21:44:00 0208[facility] 13 [facility] Systolic Blood Pressure 141 mm[Hg] 03/14/20 15:05:00 0208[facility] 13 [facility] Diastolic Blood Pressure 90 mm[Hg] 021 15:05:00 0208[facility] 13 [facility] Mean Arterial Pressure, Calc 107 mm[Hg] 03/14/2021 15:05:00 0208[facility] 13 [facility] Peripheral Pulse Rate 96 bpm 03/14/2021 15:05:00 0208[facility] 13 [facility] Respiratory Rate 16 br/min 03/14/2021 15:05:00 0208[facility] 13 [facility] Temperature Oral 97.8 Ester 03/14/2021 15:05:00 0208[facility] 13 [facility] BP Site Left arm 03/14/2021 15:05:00 0208[facility] 13 [facility] Blood Pressure Manual Automatic 03/14/2021 15:05:00 0208[facility] 13 [facility] Systolic Blood Pressure 120 mm[Hg] 01/07/20 21:39:00 0208[facility] 13 [facility] Diastolic Blood Pressure 70 mm[Hg] 021 21:39:00 0208[facility] 13 [facility] Mean Arterial Pressure, Calc 87 mm[Hg] 01/06/2021 21:39:00 0208[facility] 13 [facility] Peripheral Pulse Rate 80 bpm 01/06/2021 21:39:00 0208[facility] 13 [facility] Respiratory Rate 16 br/min 01/06/2021 21:39:00 0208[facility] 13 [facility] Temperature Oral 36.6 Ester 01/06/2021 21:39:00 [facility] 13 [facility] BP Site Right arm 01/06/2021 21:39:00 0208-[facility] 13 [facility] Blood Pressure Manual Automatic 01/06/2021 21:39:[address] [place] [address] Encounters Combined list of: 1) Encounters from Department of Veterans Affairs facilities going backup to the last 18 months, not all VA inpatient encounters are included; 2) Encounters from the Department of Defense facilities going backup to 280 months. Location Location Details Encounter Type Encounter Number Reason For Visit Attending Provider ADM Date DC Date Status Disposition Source [facility] n([facility] Hearing Conservat ion) OUTPATIENT [id number] ROSALINDAKHUSHBU MEJIAS Wilmer 07/24 Released w/o Limitations [facility] [place]([facility] D Hearing Conserv ation) [facility] yahaira([facility] Optometry Clinic) OUTPATIENT [id number] IVIS KIM 07/24 Released w/o Limitations [facility] [place] [facility] D Optomet ry Clinic) [facility] yahaira([facility] [employer]) OUTPATIENT [id number] initial inproce KEVIN Torres 07/30 Released w/o Limitations [facility] [place]([facility] D [employer] ) [facility] [place]([facility] BN BAS) OUTPATIENT [id number] Notes Entered by: Oskar PATEL 02 Aug 2017 1056 ------- ------- ------- ------- -- Yahaira/404MILTON Arnold 08/02 Released w/o Limitations [facility] [place]([facility] D Fourth BN BAS) [facility] y[place]aira([facility]) OUTPATIENT [id number] Notes Entered by: TOMMY VALENCIA 06 Aug 2017 1404 ------- ------- ------- ------- -- Yahaira/4049Vanessa ORTIZ MILTON VALENCIA 08/06 Released w/o Limitations [facility] [place]([facility] D Well Women [facility]) [facility] Tania syed([facility] Fourth BAS) OUTPATIENT [id number] Notes Entered by: Oskar PATEL 09 Aug 2017 1012 ------- ------- ------- ------- -- MILTON BREAUX 08/09 Released w/o Limitations [facility] [place]([facility] D [facility] BN BAS) [facility] Tania syed([facility] BAS) OUTPATIENT [id number] Notes Entered by: CAMPOS DARNELL 16 Aug 2017 1231 ------- ------- ------- ------- -- MILTON WOMACK 08/16 Released w/o Limitations [facility] [place]([facility] D Fourth BN BAS) [facility] Tania syed([facility] [employer]) OUTPATIENT [id number] 2ND VISIT FOR INCE KEVIN TORRES 09/02 Released w/o Limitations [facility] [place]([facility] D [employer] ) [facility]( T BAS [address] Sick Call) OUTPATIENT [id number] Notes Entered by: Julieth ESPINOZA 23 Nov 2017 0733 ------- ------- ------- ------- -- SORE THROAT CHAYITO FLETCHER 11/23 Released w/o Limitations [facility]( [facility] BAS [address] Sick Call) [facility]([place] - Med Home) OUTPATIENT [id number] SARWAT NEGRETE 12/11 Released w/o Limitations [facility]( [place] [facility]) [place] OUTPATIENT [id number] Notes Entered by: DOMINGO GRECOMATTEO Y 03 Feb 2018 0628 ------- ------- ------- ------- -- skin irritat ion on back KENDELL BARBER 02/03 Released w/o Limitations [facility] [place](Ross garza) [place] OUTPATIENT [id number] Notes Entered by: DOMINGO GRECOMATTEO Y 12 Feb 2018 0633 ------- ------- ------- ------- -- vomit/r n/cough KENDELL BARBER 02/12 Released w/o Limitations [facility] [place](Ross garza) [facility](14 [facility]) TELE CONSULT [id number] Notes Entered by: GERALD FRIEDMAN 02 May 2018 1419 ------- ------- ------- ------- -- Lab results IVIS FRIEDMAN 05/02 [facility](1 4 NIMA Clinic) [facility](13A [employer]) OUTPATIENT [id number] 7th esb/L Toenail bleedin g w/ 06/13 pain x 2 days. HAWK SPANN 08/05 Released w/o Limitations [facility](1 3ABC [employer]) [facility](13A [employer]) OUTPATIENT [id number] 1 7TH ESB / FLU JOSE MARIAINA NAMRATA DOCKERY 09/05 Released w/o Limitations [facility](1 3ABC [employer]) [facility](13A [employer]) OUTPATIENT [id number] 6 7TH ESB EPHA JEREL CROOK 09/22 Released w/o Limitations [facility](1 3ABC [employer]) [facility] Green Team) TELE CONSULT [id number] Notes Entered by: DEVONTE HURLEY 30 Sep 2018 1201 ------- ------- ------- ------- -- Medicat ion for Tinea Corpori s ARTI HURLEY 09/30 [facility] Green [facility]) [facility](13 ABC Hearing Conservat ion) OUTPATIENT [id number] 5 ANNUAL KATERYNA BUSTILLOS 10/21 Released w/o Limitations [facility](1 3 ABC Hearing Conserv ation) [facility] Green Team) OUTPATIENT [id number] 8 7TH ESB/ CALF MUSCLE PULL SARWAT HUERTA 12/02 Released with Work/Duty Limitations [facility](1 [facility] Green Team) [facility] Green Team) TELE CONSULT [id number] Notes Entered by: CHRISTOPHER SNELL 22 Apr 2019 0810 ------- ------- ------- ------- -- VENUS Culver 04/22 [facility](1 3[facility] Green Team) [facility] Green Team) TELE CONSULT [id number] Notes Entered by: CHRISTOPHER SNELL 30 Apr 2019 0858 ------- ------- ------- ------- -- Candice burgos on scalp VENUS HANDLEY 04/30 [facility] Green Team) [facility] Green Team) TELE CONSULT [id number] Notes Entered by: AMANDO JONES 04 May 2019 1106 ------- ------- ------- ------- -- Ring worm on scalp APPLE MARTINEZ 05/04 [facility] Green Team) [facility](CP Dermatolo gy) OUTPATIENT [id number] Skin tag removal PAVAN HARTMANN 05/20 Released w/o Limitations [facility](C P Dermato logy) [facility](CP Dermatolo gy) TELE CONSULT [id number] 2 Notes Entered by: PAVAN HARTMANN 26 May 2019 1020 ------- ------- ------- ------- -- BIOPSY RESULTS PAVAN HARTMANN 05/26 [facility](C P Dermato logy) [facility](13A [facility] Green Team) OUTPATIENT [id number] 7TH ESB- CONTROL ESTEVAN SCHULTZ 07/01 Released w/o Limitations [facility](1 3[facility] Green Team) [facility](13A [facility] Green Team) OUTPATIENT [id number] 5 7TH ESB- BACK PX/CHES T PX/SLEE P ISSUES (40 MINS) ESTEVAN SCHULTZ 08/24 Released with Work/Duty Limitations [facility](1 [facility] Green Team) [facility](13A [facility] Green Team) TELE CONSULT [id number] 0 Notes Entered by: ANTHONY PALUMBO 07 Sep 2019 1005 ------- ------- ------- ------- -- Referra l to physica l therapy for low back pain ESTEVAN SCHULTZ 09/07 [facility](1 3[facility] Green Team[facility](13A [facility] Green Team) OUTPATIENT [id number] 7ESB/EP CLEMENTS ESTEVAN SCHULTZ 09/07 Released w/o Limitations [facility](1 3[facility] Green Team) [facility](52 ABC Physical Therapy BLAA) OUTPATIENT [id number] Low back pain OLIVIA RAMOS 09/16 Released w/o Limitations [facility](5 2 ABC Physica l Therapy BLAA) [facility](13A BC 14Area [facility] Green Team) OUTPATIENT [id number] Notes Entered by: Chris RAMOS 23 Sep 2019 1212 ------- ------- ------- ------- -- 7th ESB modesta RAMOS CORBIN Breanne 09/23 Released w/o Limitations [facility](1 [facility] Green Team) [facility] Green Team) TELE CONSULT [id number] Notes Entered by: Chris RAMOS 28 Sep 2019 1047 ------- ------- ------- ------- -- 7th ESB OSIRIS Sullivan 09/28 [facility](1 3[facility] Green Team) [facility](13 ABC Hearing Conservat ion) OUTPATIENT [id number] ANNUAL KATERYNA BUSTILLOS 11/11 Released w/o Limitations [facility](1 3 ABC Hearing Conserv ation) [facility] Green Team) OUTPATIENT [id number] 8 Notes Entered by: ARNAUD LLOYD 24 Nov 2019 0830 ------- ------- ------- ------- -- 7 ESB/ césar Alaniz headach e ALLEN, DAVID M 11/24 Sick at Home/Quarter s [facility](1 3[facility] Green Team) [facility](13A [facility] Green Team) OUTPATIENT [id number] 1 7TH ESB/ FAMILY HX DIABETE S LOWELLDARCY APPLE R 01/18 Released w/o Limitations [facility](1 3[facility] Green Team) [facility] Green Team) TELE CONSULT [id number] Notes Entered by: ALYSA DUKE 29 Jan 2020 1223 ------- ------- ------- ------- -- ESB/LAB RESULTS MICHAEL YOO Y 01/28 [facility](1 3[facility] Green Team) [facility](13A [facility] Green Team) OUTPATIENT [id number] 7ESB/Lo werback pain MICHAEL YOO Y 04/18 Released with Work/Duty Limitations [facility](1 3[facility] Green Team) [facility] Green Team) OUTPATIENT [id number] ESB/Bum p on R VENUS Mandel 04/25 Released w/o Limitations [facility](1 3[facility] Green Team) [facility](13A [facility] Green Team) TELE CONSULT [id number] 5 Notes Entered by: THOMAS PERRY 10 May 2020 0741 ------- ------- ------- ------- -- 7esb/ Covid Triage THOMAS PERRY 05/10 Sick at Home/Quarter s [facility](1 3[facility] Green Team) [facility](13[facility] Green Team) TELE CONSULT [id number] Notes Entered by: THOMAS PERRY 23 May 2020 0753 ------- ------- ------- ------- -- 7ESB/ covid triage OSIRIS REEVES 05/23 [facility](1 3[facility] Green Team) [facility](CP Comm Imms/Flu Clinic) OUTPATIENT [id number] Notes Entered by: DANRELL OTERO 23 May 2020 0845 ------- ------- ------- ------- -- Covid-1 9 BRE Kenny 05/23 Released w/o Limitations [facility](C P Comm Imms/Fl u Clinic) [facility](13A 14[facility] Green Team) TELE CONSULT [id number] Notes Entered by: Soto STONE 16 Jun 2020 0753 ------- ------- ------- ------- -- 7TH ESB// ER FOLLOW- UP BROWN STONE 06/16 Released to Self Care [facility](1 3[facility] Toney Team) [facility](13A BC 14[facility] Toney Team) OUTPATIENT [id number] ESB/Pap OSIRIS REEVES 06/29 Released w/o Limitations [facility](1 3[facility] Toney Team) [facility](13A [facility] Toney Team) OUTPATIENT [id number] 7ESB/ LBP x 5 days OSIRIS REEVES 08/26 Released w/o Limitations [facility](1 3[facility] Toney Team) [facility](13A [facility] Toney Team) OUTPATIENT [id number] F/U FOR BACK PAIN KELSI CALVILLO 09/02 Released with Work/Duty Limitations [facility](1 3[facility] Toney Team) [facility] [place] En[place] [id number] 07/16 [facility] Outpatient Encounter [id number] 07/17 [facility] Outpatient Encounter [id number] 07/18 [facility] Outpatient Encounter [id number] DEVONTE REYES 09/09 [facility] Outpatient Encounter [id number] SADE TAYLOR 09/09 [facility] En[facility] [id number] 09/16 [facility] [place] [facility] PRO PHONE CALL 21-30 MIN [id number] Diagnos is: ICD-10- CM Z39.2 Encount er for routine postpar lana follow- up OLIVIA VARGAS 04/06 [facility] Outpatient Encounter [id number] 04/21 [facility] Outpatient Encounter [id number] 04/21 [facility] Outpatient Encounter [id number] 05/04 [facility] Outpatient Encounter [id number] 05/04 [facility] Outpatient Encounter [id number] 05/05 [facility] [id number] ABELARDO VINH RDES 07/08 Discharge Disposition: Home or Self Care 0035[facility]-N [facility] 0035[facility] [id number] Encount er for pre-emp loyment examina tion ABELARDO VINH RDES 07/21 Discharge Disposition: Home or Self Care 0035[facility] Outpatient Encounter [id number] 08/04 [facility] 0035[facility] [id number] 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, lumbar region, Low back pain, unspeci fied,En counter for examina tion and observa tion for other specifi ed reasons ABELARDO VINH RDES 09/16 Discharge Disposition: Home or Self Care 0035[facility] 0035[facility] [id number] 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, lumbar region, Low back pain, unspeci fied ABELARDO JUDDICKCO RDES 11/06 Discharge Disposition: Home or Self Care 5-[facility] Outpatient Encounter [id number] 12/01 [facility] 5[facility] [id number] Low back pain, unspeci fied,In tervert ebral disc disorde rs with radicul opathy, lumbar region ABELARDO JUDDICKCO RDES 12/08 Discharge Disposition: Home or Self Care [address] [place] [address] Procedures Combined list of: 1) Procedures from Department of [facility] Affairs facilities going back up to thelast 18 months, not all MD non-surgical procedures are included; 2) All procedures from the Department of Defense facilities. Procedure Procedure Type Code Date Perfomer Comments [facility] e SCREENING TEST OF VISUAL ACUITY, QUANTITATIVE, BILATERAL [facility] INFUSION, NORMAL SALINE SOLUTION , 1000 CC [facility] INFLUENZA VIRUS VACCINE, QUADRIVALENT (CCIIV4), DERIVED FROM CELL CULTURES, SUBUNIT, PRESERVATIVE AND ANTIBIOTIC FREE, 0.5 ML DOSAGE, FOR INTRAMUSCULAR USE [facility] ANTIBIOTIC PRESCRIBED OR DISPENSED (URI, PHAR), (A-BRONCH) [facility] SKIN TEST; TUBERCULOSIS, INTRADERMAL [facility] PHYS/OTH QUALIFIED HEALTH WATER QUALITY MANAGER QUALIFIED,EDUCATI ON,TRAIN,LICENSUR E/REGULATION (WHEN APPLICABLE) EDUC SER RENDERED TO PATS IN A GRP SETTING (EG,,OBES ITY,OR DIABETIC INSTRUCT) [facility] SCREENING TEST OF VISUAL ACUITY, QUANTITATIVE, BILATERAL [facility] SERVICE(S) PROVIDED BETWEEN 10:00 PM AND 8:00 AM AT 24-HOUR FACILITY, IN ADDITION TO BASIC SERVICE [facility] PSYCHOTHERAPY, 30 MINUTES WITH PATIENT WHEN PERFORMED WITH AN EVALUATION AND MANAGEMENT SERVICE (LIST SEPARATELY IN ADDITION TO THE CODE FOR PRIMARY PROCEDURE) [facility] PSYCHOTHERAPY, 30 MINUTES WITH PATIENT WHEN PERFORMED WITH AN EVALUATION AND MANAGEMENT SERVICE (LIST SEPARATELY IN ADDITION TO THE CODE FOR PRIMARY PROCEDURE) [facility] PSYCHOTHERAPY, 60 MINUTES WITH PATIENT WHEN PERFORMED WITH AN EVALUATION AND MANAGEMENT SERVICE (LIST SEPARATELY IN ADDITION TO THE CODE FOR PRIMARY PROCEDURE) DoD PSYCHOTHERAPY, 60 MINUTES WITH PATIENT WHEN PERFORMED WITH AN EVALUATION AND MANAGEMENT SERVICE (LIST SEPARATELY IN ADDITION TO THE CODE FOR PRIMARY PROCEDURE) [facility] PURE TONE AUDIOMETRY (THRESHOLD), AUTOMATED; AIR ONLY [facility] PSYCHIATRIC DIAGNOSTIC EVALUATION WITH MEDICAL SERVICES [facility] INFLUENZA VIRUS VACCINE, QUADRIVALENT (IIV4), SPLIT VIRUS, 0.5 ML DOSAGE, FOR INTRAMUSCULAR USE [facility] THERAPEUTIC PROCEDURE,1 OR MORE AREAS,EACH 15 MINUTES;NEUROMUSC ULAR REEDUCATION OF MOVEMENT,BALANCE, COORDINATION,KINE STHETIC SENSE,POSTURE,AND /OR PROPRIOCEPTION FOR SITTING AND/OR STANDING ACTIVITIES [facility] ADMINISTRATION OF PATIENT-FOCUSED HEALTH RISK ASSESSMENT INSTRUMENT (EG, HEALTH HAZARD APPRAISAL) WITH SCORING AND DOCUMENTATION, PER STANDARDIZED INSTRUMENT [facility] ELECTROCARDIOGRAM , ROUTINE ECG WITH AT LEAST 12 LEADS; TRACING ONLY, WITHOUT INTERPRETATION AND REPORT [facility] TANGENTIAL BIOPSY OF SKIN (EG, SHAVE, SCOOP, SAUCERIZE, CURETTE); SINGLE LESION [facility] PURE TONE AUDIOMETRY (THRESHOLD), AUTOMATED; AIR ONLY [facility] ADMINISTRATION OF PATIENT-FOCUSED HEALTH RISK ASSESSMENT INSTRUMENT (EG, HEALTH HAZARD APPRAISAL) WITH SCORING AND DOCUMENTATION, PER STANDARDIZED INSTRUMENT [facility] INFLUENZA VIRUS VACCINE, QUADRIVALENT (IIV4), SPLIT VIRUS, 0.5 ML DOSAGE, FOR INTRAMUSCULAR USE [facility] AVULSION OF NAIL PLATE, PARTIAL OR COMPLETE, SIMPLE; SINGLE [facility] INCISION AND DRAINAGE OF VULVA OR PERINEAL ABSCESS [facility] Threshold Audiogram (Pure Tone) Automated Threshold Audiogram (Pure Tone) Automated 0208T KATERYNA BUSTILLOS [facility] Patient education, not otherwise cla ified, non-physician provider, group, per se ion KATERYNA BUSTILLOS [facility] Preventive Medicine Administration Of Health Risk Questionnaire Patient-Focused Preventive Medicine Administration Of Health Risk Questionnaire Patient-Focused [id number] ARMAAN, JEREL Perez [facility] Influenza Split Virus Vaccine IM With Preservative Quadrivalent 0.50mL Dosage Influenza Split Virus Vaccine IM With Preservative Quadrivalent 0.50mL Dosage 84961 018 NAMRATA FRYE [facility] Immunization Administration By Injection, One Vaccine Immunization Administration By Injection, One Vaccine 56504 018 NAMRATA FRYE [facility] Avulsion Of Nail Plate - One Avulsion Of Nail Plate - One 84736 018 HAWK SPANN [facility] Screening Test Of Visual Acuity, Quantitative, Bilateral Screening Test Of Visual Acuity, Quantitative, Bilateral 44985 018 SARWAT EUBANKS [facility] Screening Test Of Visual Acuity, Quantitative, Bilateral Screening Test Of Visual Acuity, Quantitative, Bilateral 06235 018 BECK RODGERS Pulse Oximetry Pulse Oximetry 33349 BECK RODGERS [facility] Viral Influenza Vaccine Cell Culture Derivative, Antibiotic Free, Quadrivalent, 0.5mL Dosage, IM Viral Influenza Vaccine Cell Culture Derivative, Antibiotic Free, Quadrivalent, 0.5[place] [address] 017 HARVINDERNICOLE Martin Influenza, injectable, MDCK, preservative free, quadrivalent; Series #: 1; .5 mL; IM; Left Arm; Mfg: [employer]; Lot: [id number]. [facility] Hepatitis B Vaccine (Active); [place] To 11 Years Hepatitis B Vaccine (Active); To 11 Years 96477 017 [facility] Hep B, adolescent or pediatric; Series #: 1; .5 mL; IM; Left Arm; Mfg: [employer]; Lot: [id number]. [facility] Vaccines Viral Polio, Inactivated Vaccines Viral Polio, Inactivated 09365 017 [facility] MartinNICOLE IPV; Series #: 1; .5 mL; IM; Left Arm; Mfg: Sanofi Paste[employer]; Lot: [id number]. DoD Immunization Administration By Injection, One Vaccine Immunization Administration By Injection, One Vaccine 23848 HARVINDERREYNA MartinNICOLE DoD Immunization Administration By Injection, Each Additional Vaccine Immunization Administration By Injection, Each Additional Vaccine 22968 017 [facility] Preventive Medicine Antibiotic Prescribed / Dispensed Preventive Medicine Antibiotic Prescribed / Dispensed 4120F MILTON VALENCIA [facility] Skin Test Anergy Tuberculin Intradermal Skin Test Anergy Tuberculin Intradermal 25344 [facility] Immunization Administration By Injection, One Vaccine Immunization Administration By Injection, One Vaccine 33693 [facility] Immunization Administration By Injection, Each Additional Vaccine Immunization Administration By Injection, Each Additional Vaccine 32131 [facility] Immunization Admin Intranasal / Oral Each Additional Vaccine Immunization Admin Intranasal / Oral Each Additional Vaccine 51845 [facility] Vaccines Adenovirus Type 4 Live, For Oral Use Vaccines Adenovirus Type 4 Live, For Oral Use 34486 [facility] Vaccines Adenovirus Type 7 Live, For Oral Use Vaccines Adenovirus Type 7 Live, For Oral Use 20102 [facility] Meningococcal Conjugate Vaccine Quadrivalent Serogroups A, C, Y, W-135 [facility] Tdap Vaccine Tdap Vaccine 93116 [facility] Venipuncture Venipuncture 73284 [facility] Screening Test Of Visual Acuity, Quantitative, Bilateral Screening Test Of Visual Acuity, Quantitative, Bilateral 42232 IVIS KIM [facility] Audiometry Group Testing Audiometry Group Testing 71152 RUSTY MCCOY [facility] Physician Supervised Group Educational Services Physician Supervised Group Educational Services 59256 RUSTY MCCOY [facility] Skin Biopsy Technique Shave Single Lesion Skin Biopsy Technique Shave Single Lesion 28872 PAVAN HARTMANN AFTER EXPLAINING NATURE OF PROCEDURE, RISKS (INCLUDING BUT NOT LIMITED TO BLEEDING, INFECTION, SCARRING, RECURRENCE, NUMBNESS), BENEFITS AND ALTERNATIVES, PT AGREED AND SIGNED CONSENT. PT WAS THEN TAKEN TO THE OR, SITE MARKED. A PROCEDURE TIME OUT WAS THEN PERFORMED, PROCEDURE SITE VERIFIED CORRECT BY PATIENT AND PT STATED FULL NAME AND FULL FMP/SSN WHICH WERE ALSO VERIFIED MATCHING THE LABELED SPECIMEN BOTTLE. THE AREA WAS PREPPED WITH ALCOHOL, LOCAL ANESTHESIA WITH 1% LIDOCAINE WITH EPINEPHRINE, AND REMOVAL OF THE LESION WAS THEN PERFORMED USING THE SHAVE TECHNIQUE. ONE SPECIMEN SENT TO PATHOLOGY FOR ANALYSIS. STERILE DRESSING APPLIED (PETROLAUM/COVE RLET). PT TOLERATED PROCEDURE WELL, DENIED POST-PROCEDURE DISCOMFORT. WOUND CARE DISCUSSED. WILL CALL PATIENT WITH PATH RESULTS WHEN AVAILABLE. [facility] Physical Therapy Service Evaluation Low Complexity Physical Therapy Service Evaluation Low Complexity 11253 OLIVIA RAMOS [facility] Osteopathic Manip Treatment (OMT) 1-2 Body Regions Involved Osteopathic Manip Treatment (OMT) 1-2 Body Regions Involved 38108 OLIVIA RAMOS risks and benefits discussed. Pt consented to procedure improved mobiltiy noted post [facility] Physical Therapy Neuromuscular Re-education Physical Therapy Neuromuscular Re-education 58681 OLIVIA RAMOS [facility] Immunization Administration By Injection, One Vaccine Immunization Administration By Injection, One Vaccine 81383 CORBIN RAMOS [facility] Influenza Split Virus Vaccine IM With Preservative Quadrivalent 0.50mL Dosage Influenza Split Virus Vaccine IM With Preservative Quadrivalent 0.50mL Dosage 92970 CORBIN RAMOS [facility] Psychiatric Diagnostic Evaluation With Medical Evaluation And Management Psychiatric Diagnostic Evaluation With Medical Evaluation And Management 53350 CHRIS HORANETLANA [facility] Patient education, not otherwise cla ified, non-physician provider, group, per se ion KATERYNA BUSTILLOS [facility] Threshold Audiogram (Pure Tone) Automated Threshold Audiogram (Pure Tone) Automated 0208T KATERYNA BUSTILLOS [facility] Psychotherapy Indiv Interactive Approx 60 Min W/ Medical Eval & Management Psychotherapy Indiv Interactive Approx 60 Min W/ Medical Eval & Management 47417 AUNG MARY [facility] Psychotherapy Indiv Interactive Approx 30 Min W/ Medical Eval & Management Psychotherapy Indiv Interactive Approx 30 Min W/ Medical Eval & Management 32414 AUNG MARY DoD Psychotherapy Indiv Interactive Approx 30 Min W/ Medical Eval & Management Psychotherapy Indiv Interactive Approx 30 Min W/ Medical Eval & Management 38165 MARY HORAN Virtual encounter by phone for 30 mins due to covid-19 DoD No data available for this section Ambulato ry Pharmacy Social History Combined list of available smoking, tobacco, and other social history from Department of Defense and Veterans Affairs facilities. Social History Type Response Date Comment Sourc e Tobacco smoking status [facility] MD-TOBACCO NEVER USED 02/27/2023 [place] [facility] History of tobacco use [facility] TOBACCO [facility] [place] DOES NOT 12/27/2022 [facility] [place] of tobacco use [facility] TOBACCO [place] DOES NOT 11/02/2022 [facility] History of tobacco use [facility] TOBACCO [place] DOES NOT 07/20/2022 [facility] History of tobacco use [facility] USE [place] 30 MIN OF WAKEUP 01/31/2022 [facility] Female 08/18/2020 Ambulatory Pha rmacy This section is an empty social history section. DoD Tobacco Cigarette use: Never-cigarette user. Other Tobacco use: Yes-current some day other tobacco user (not cigarettes). Other Tobacco type: vape. Ambulatory Pharmacy Sexual Orientation Ambula tory Pharmacy Gender identity Ambulator y Pharmacy Assessment and Plan Combined list of future care activities from Department of Defense and Veterans Affairs facilities (e.g., assessment and plan notes, appointments, orders, and referrals). Additional future care activities may be listed in the Plan of Care section. Result Assessment and Plan Date Source Assessment and Plan Extracted from:Title : Office Clinic Note Author: CHRISTINE FOUNTAIN Date: 07/08/24 Encounter for examination and observation for other specified reasons Hearing WNL. A copy of hearing test was given to patient, and uploaded into powerchart. Christine Fountain, Weights And Measures Inspector Missile [employer] Mechanic [facility], [place], [place] ? ? Extracted from:Title: Office Clinic Note- Separation Physical Author: GALINA DAVIS PA-C Date: 03/14/21 1. Separation Physical Pt well and in NAD. PE unremarkable. Refer to scanned 2807/2808 for complete documentation. Chronic, intermittent concerns well evaluated, documented, and treated.? Pt is Fit to Separate. [facility]. [facility]. ? Extracted from:Title: Termination Audiogram Note Author: OSIRIS ORTIZ Date: 02/22/21 1.?EXAM, FORMAL OCCUPATIONAL HEALTH PROGRAM INCLUDING HEARING CONSERVATION PROGRAM, DUE TO TERMINATION OF OCCUPATIONAL WORKPLACE EXPOSURE 2.?Ear nose and throat disease treatment started 3.?Health education given Assessment: Patient?does not have an STS?in today's?audiogram.?No further testing required. Plan:? Termination Audiogram Complete. Extracted from:Title: Stress Follow Up Author: COLBY FLORES Date: 01/09/21 1.?Stress ?20 y/o ADF presents for medication f/u after starting Lexapro. No adverse SE so far. ? -Pt to continue medication. F/u at 30 day joe for refill assessment -ER precautions discussed -Pt agrees to the plan ? 2.?Knee pain ?-5 days LLD given to get pt to first PT appt on JAN 22 ? Extracted from:Title: Office Clinic Note Author: ESTEVAN SCHULTZ Date: 12/30/20 1.?Pain in left knee Ordered: Office Visit Level 5 Est 39475 ? ?20 y/o female presents with L knee pain x 6months after fall while running [place]. She aggravated it?2 weeks ago?when she tripped on a rock. Pain is localized superior edge of patella. No EEE,TTP. FAROM, strength 5/5?and special tests all negative. Suspect mild sprain or meniscal injury. 7 Days LD consult to PT placed Educated on RICE RTC if Sx persist. ? ? Extracted from:Title: Chronic Chest Pain Author: COLBY FLORES Date: 12/28/20 1.?Stress ?20 y/o ADF presents with chest pain since October. History and workup?most consistent with anxiety and stress causing physical symptoms to include chest tightness. ? -Pt did not do well on Prozac -Start pt on Lexapro, check in in about 2?weeks -Pt working with [employer] on family and work stress ? Ordered: XR Chest 2 Views ? 2.?Chest pain ?Chest xray to r/o residual lung injury after COVID. Ordered: XR Chest 2 Views ? 3.?Acne ?Pt with c/o increased acne. She just started OTC wash last night. Pt to give this 3-4 weeks. Will consider BP wash and Retin-A if no improvement. ? Extracted from:Title: Office Clinic Note Author: COLLIN STOLL Date: 12/21/20 1.?Pain in left knee Extracted from:Title: Office Clinic Note Author: ESTEVAN SCHULTZ Date: 12/20/20 1.?Pain in left knee ?20 y/o female presents with knee pain x 6months after fall while running [place] [address]. She aggravated it last week when she tripped on a rock. Pain is localized superior edge of patella. No EEE,TTP. FAROM, strength 5/5?and special tests all negative. Suspect mild sprain or meniscal injury. 7 Days LD Educated on RICE RTC if Sx persist. ? ? ? Ordered: ibuprofen 600 mg oral tablet, 1 tab(s), Oral, QID, # 120 tab(s), 0 total refill(s), Acute, 01/12/2021, [facility]] Tylenol 325 mg oral tablet, 1 tab(s), Oral, every 4 hr, PRN pain or fever, # 100 tab(s), 0 total refill(s), Acute, 01/11/2021, [facility] [Not filled] Office Visit Level 5 Est 54565 ? Extracted from:Title: Depression Symptoms Author: COLBY FLORES Date: 12/13/20 1.?Depressed ?20 y/o ADF with feelings of depression and self harm ideals following her father's . She is currently working with [employer] team. ? -Started pt on Prozac for 2 week trial -Pt may not drink on this medication. She is abstaining already -Pt educated heavily on side effects, ER precautions -Pt to avoid pre-workout for at least one week -Pt will call MO in 2 weeks time to discuss medication side effects, if pt tolerating well, will give another 2 week prescription and plan to see MO after that -Pt expressed understanding and agrees to the plan -ER precautions discussed -RTC PRN -FFD ? Ordered: PROzac 20 mg oral capsule, 1 cap(s), Oral, Daily, Take one cap by mouth every morning. Call MO at for refill., # 14 cap(s), 0 total refill(s), Maintenance, [facility] [Not filled] ? Extracted from:Title: Cardiology Virtual Encounter Note - Chest pain Author: TAYO QUINTANILLA DO Date: 11/14/20 1.?Chest pain ?Atypical chest pain, but she does have an exertional component.? Will get exercise stress test in addition to a 7 day Holter monitor to evaluate whether an arrhythmia might be causing her symptoms. Ordered: CV Exercise Treadmill Test CV Extended Holter Monitor Waiver Services; Not Otherwise Specified (NOS) T2025 ? A total of?30?minutes was spent during this encounter. ?>50% of the time was spent coordinating care and/or counseling the patient on the diagnosis, evaluation and therapeutic options. ? Patient verbalized understanding and agreement with diagnosis and treatment plan. Verbalized importance of obtaining follow up after studies and consultation are complete. No barriers to understanding identified. ? ? This patient visit was accomplished via telephone during the COVID-19 pandemic response. This visit was conducted in accordance with instructions from the Centers for Disease Control, the Department of Defense, and guidance from facility leadership. Patient was notified and consented to a [facility] health appointment in lieu of a face to face encounter.? ? Signed by LCDR Tayo Quintanilla DO, [facility] Cardiology [facility] ? Extracted from:Title: Office Clinic Note - cp / frieda Author: JOSÉ AUGUSTIN Date: 11/08/20 1.?Chest pain Ordered: Office Visit Level 3 New 07087 ? Extracted from:Title: Office Clinic Note cp / frieda Author: JOSÉ AUGUSTIN Date: 11/08/20 1.?Chest pain ?20y/o female with 3 episode's of chest pain resolved with laying down.? Unknown onset. Recently lost father in mid- Sep due to complications after being diagnosed with COVID-19.? MGM passed in her early 40's due to unknown heart issues, Mother is currently being treated for unknown heart issues. 1. Refer to Cardio due to significant family history of cardio issues. 2. Refer to frieda for possible anxiety/panic attacks. 3. rtn to medical if s/sx increase with precautions to go to ER. 4. Educated and acknowledges plan. ? ? ? Ordered: Office Visit Level 3 New 56707 ? 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 He was most recently evaluated on 16 OCT 2020 without notable change in his clinical presentation and SM was provided with LLD extension to facilitate initiation of physical therapy. He has exhausted 56/90 days of LLD for this same issue. She continues to improve with PT out in town with stretching/strengthening and cupping treatment modalities. SM declines interest in anti-inflammatory medications at this time as they were not previously helpful. She believes she will return to duty upon completion of her therapy which has a duration lasting approximately 1-month from now. Will honor LLD extension request. Follow-up at [facility] with PT/shorts for further spine examinations/treatment?as needed. Ordered: Office Visit Level 3 Est 71540 ? Extracted from:Title: Office Clinic Note-LLD chit credit authorizer Author: KELSI VILLEGAS Date: 10/14/20 1.?Administrative statuses ?LLD chit granted until 19 October 2020 at which point duty status recommendation will be made by physical therapist ? 12/25/[address] [place] [address] Assessment and Plan Extracted from:Title : Office Clinic Note Author: CHRISTINE FOUNTAIN Date: 07/08/24 Encounter for examination and observation for other specified reasons Hearing WNL. A copy of hearing test was given to patient, and uploaded into powerchart. Christine Fountain, Weights And Measures Inspector [employer] [facility], [place], [place] ? ? Extracted from:Title: Office Clinic Note- Separation Physical Author: GALINA DAVIS PA-C Date: 03/14/21 1. Separation Physical Pt well and in NAD. PE unremarkable. Refer to scanned 2807/2808 for complete documentation. Chronic, intermittent concerns well evaluated, documented, and treated.? Pt is Fit [facility]arate[facility] ? Extracted from:Title: Termination Audiogram Note Author: OSIRIS ORTIZ Date: 02/22/21 1.?EXAM, FORMAL OCCUPATIONAL HEALTH PROGRAM INCLUDING HEARING CONSERVATION PROGRAM, DUE TO TERMINATION OF OCCUPATIONAL WORKPLACE EXPOSURE 2.?Ear nose and throat disease treatment started 3.?Health education given Assessment: Patient?does not have an STS?in today's?audiogram.?No further testing required. Plan:? Termination Audiogram Complete. Extracted from:Title: Stress Follow Up Author: COLBY FLORES Date: 01/09/21 1.?Stress ?20 y/o ADF presents for medication f/u after starting Lexapro. No adverse SE so far. ? -Pt to continue medication. F/u at 30 day joe for refill assessment -ER precautions discussed -Pt agrees to the plan ? 2.?Knee pain ?-5 days LLD given to get pt to first PT appt on JAN 22 ? Extracted from:Title: Office Clinic Note Author: ESTEVAN SCHULTZ Date: 12/30/20 1.?Pain in left knee Ordered: Office Visit Level 5 Est 33006 ? ?20 y/o female presents with L knee pain x 6months after fall while running down [address]. She aggravated it?2 weeks ago?when she tripped on a rock. Pain is localized superior edge of patella. No EEE,TTP. FAROM, strength 5/5?and special tests all negative. Suspect mild sprain or meniscal injury. 7 Days LD consult to PT placed Educated on RICE RTC if Sx persist. ? ? Extracted from:Title: Chronic Chest Pain Author: COLBY FLORES Date: 12/28/20 1.?Stress ?20 y/o ADF presents with chest pain since October. History and workup?most consistent with anxiety and stress causing physical symptoms to include chest tightness. ? -Pt did not do well on Prozac -Start pt on Lexapro, check in in about 2?weeks -Pt working with [employer]A on family and work stress ? Ordered: XR Chest 2 Views ? 2.?Chest pain ?Chest xray to r/o residual lung injury after COVID. Ordered: XR Chest 2 Views ? 3.?Acne ?Pt with c/o increased acne. She just started OTC wash last night. Pt to give this 3-4 weeks. Will consider BP wash and Retin-A if no improvement. ? Extracted from:Title: Office Clinic Note Author: COLLIN STOLL Date: 12/21/20 1.?Pain in left knee Extracted from:Title: Office Clinic Note Author: ESTEVAN SCHULTZ Date: 12/20/20 1.?Pain in left knee ?20 y/o female presents with knee pain x 6months after fall while running [place] [address]. She aggravated it last week when she tripped on a rock. Pain is localized superior edge of patella. No EEE,TTP. FAROM, strength 5/5?and special tests all negative. Suspect mild sprain or meniscal injury. 7 Days LD Educated on RICE RTC if Sx persist. ? ? ? Ordered: ibuprofen 600 mg oral tablet, 1 tab(s), Oral, QID, # 120 tab(s), 0 total refill(s), Acute, 01/12/2021, [facility]] Tylenol 325 mg oral tablet, 1 tab(s), Oral, every 4 hr, PRN pain or fever, # 100 tab(s), 0 total refill(s), Acute, 01/11/2021, [facility] [[facility]] Office Visit Level 5 Est 54348 ? Extracted from:Title: Depression Symptoms Author: COLBY FLORES Date: 12/13/20 1.?Depressed ?20 y/o ADF with feelings of depression and self harm ideals following her father's . She is currently working with [employer] team. ? -Started pt on Prozac for 2 week trial -Pt may not drink on this medication. She is abstaining already -Pt educated heavily on side effects, ER precautions -Pt to avoid pre-workout for at least one week -Pt will call [place] in 2 weeks time to discuss medication side effects, if pt tolerating well, will give another 2 week prescription and plan to see [place] after that -Pt expressed understanding and agrees to the plan -ER precautions discussed -RTC PRN -FFD ? Ordered: PROzac 20 mg oral capsule, 1 cap(s), Oral, Daily, Take one cap by mouth every morning. Call [place] at for refill., # 14 cap(s), 0 total refill(s), Maintenance, [facility] [[facility]] ? Extracted from:Title: Cardiology Virtual Encounter Note - Chest pain Author: TAYO QUINTANILLA, Date: 11/14/20 1.?Chest pain ?Atypical chest pain, but she does have an exertional component.? Will get exercise stress test in addition to a 7 day Holter monitor to evaluate whether an arrhythmia might be causing her symptoms. Ordered: CV Exercise Treadmill Test CV Extended Holter Monitor Waiver Services; Not Otherwise Specified (NOS) T2025 ? A total of?30?minutes was spent during this encounter. ?>50% of the time was spent coordinating care and/or counseling the patient on the diagnosis, evaluation and therapeutic options. ? Patient verbalized understanding and agreement with diagnosis and treatment plan. Verbalized importance of obtaining follow up after studies and consultation are complete. No barriers to understanding identified. ? ? This patient visit was accomplished via telephone during the COVID-19 pandemic response. This visit was conducted in accordance with instructions from the Centers for Disease Control, the Department of Defense, and guidance from facility leadership. Patient was notified and consented to a virtual health appointment in lieu of a face to face encounter.? ? Signed by LCDR Tayo Quintanilla DO [facility] Cardiology [facility] ? Extracted from:Title: Office Clinic Note - cp / frieda Author: JOSÉ AUGUSTIN Date: 11/08/20 1.?Chest pain Ordered: Office Visit Level 3 New 85311 ? Extracted from:Title: Office Clinic Note cp / frieda Author: JOSÉ AUGUSTIN Date: 11/08/20 1.?Chest pain ?20y/o female with 3 episode's of chest pain resolved with laying down.? Unknown onset. Recently lost father in mid- Sep due to complications after being diagnosed with COVID-19.? MGM passed in her early 40's due to unknown heart issues, Mother is currently being treated for unknown heart issues. 1. Refer to Cardio due to significant family history of cardio issues. 2. Refer to frieda for possible anxiety/panic attacks. 3. rtn to medical if s/sx increase with precautions to go to ER. 4. Educated and acknowledges plan. ? ? ? Ordered: Office Visit Level 3 New 71484 ? 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 He was most recently evaluated on 16 OCT 2020 without notable change in his clinical presentation and SM was provided with LLD extension to facilitate initiation of physical therapy. He has exhausted 56/90 days of LLD for this same issue. She continues to improve with PT out in town with stretching/strengthening and cupping treatment modalities. SM declines interest in anti-inflammatory medications at this time as they were not previously helpful. She believes she will return to duty upon completion of her therapy which has a duration lasting approximately 1-month from now. Will honor LLD extension request. Follow-up at [facility] with PT/shorts for further spine examinations/treatment?as needed. Ordered: Office Visit Level 3 Est 13835 ? Extracted from:Title: Office Clinic Note-LLD chit credit authorizer Author: KELSI VILLEGAS Date: 10/14/20 1.?Administrative statuses ?LLD chit granted until 19 October 2020 at which point duty status recommendation will be made by physical therapist ? 12/25/[address] [place] [address] 13 [facility] Assessment and Plan Extracted from:Title : Office Clinic Note Author: CHRISTINE FOUNTAIN Date: 07/08/24 Encounter for examination and observation for other specified reasons Hearing WNL. A copy of hearing test was given to patient, and uploaded into powerchart. Christine Fountain, Weights And Measures Inspector [employer] [facility], [place], [place] ? ? Extracted from:Title: Office Clinic Note- Separation Physical Author: GALINA DAVIS PA-C Date: 03/14/21 1. Separation Physical Pt well and in NAD. PE unremarkable. Refer to scanned 2807/2808 for complete documentation. Chronic, intermittent concerns well evaluated, documented, and treated.? Pt is Fit to Separate. a. [facility] ? Extracted from:Title: Termination Audiogram Note Author: OSIRIS ORTIZ Date: 02/22/21 1.?EXAM, FORMAL OCCUPATIONAL HEALTH PROGRAM INCLUDING HEARING CONSERVATION PROGRAM, DUE TO TERMINATION OF OCCUPATIONAL WORKPLACE EXPOSURE 2.?Ear nose and throat disease treatment started 3.?Health education given Assessment: Patient?does not have an STS?in today's?audiogram.?No further testing required. Plan:? Termination Audiogram Complete. Extracted from:Title: Stress Follow Up Author: COLBY FLORES Date: 01/09/21 1.?Stress ?20 y/o ADF presents for medication f/u after starting Lexapro. No adverse SE so far. ? -Pt to continue medication. F/u at 30 day joe for refill assessment -ER precautions discussed -Pt agrees to the plan ? 2.?Knee pain ?-5 days LLD given to get pt to first PT appt on JAN 22 ? Extracted from:Title: Office Clinic Note Author: ESTEVAN SCHULTZ Date: 12/30/20 1.?Pain in left knee Ordered: Office Visit Level 5 Est 60994 ? ?20 y/o female presents with L knee pain x 6months after fall while running [place]. She aggravated it?2 weeks ago?when she tripped on a rock. Pain is localized superior edge of patella. No EEE,TTP. FAROM, strength 5/5?and special tests all negative. Suspect mild sprain or meniscal injury. 7 Days LD consult to PT placed Educated on RICE RTC if Sx persist. ? ? Extracted from:Title: Chronic Chest Pain Author: COLBY FLORES Date: 12/28/20 1.?Stress ?20 y/o ADF presents with chest pain since October. History and workup?most consistent with anxiety and stress causing physical symptoms to include chest tightness. ? -Pt did not do well on Prozac -Start pt on Lexapro, check in in about 2?weeks -Pt working with [employer] on family and work stress ? Ordered: XR Chest 2 Views ? 2.?Chest pain ?Chest xray to r/o residual lung injury after COVID. Ordered: XR Chest 2 Views ? 3.?Acne ?Pt with c/o increased acne. She just started OTC wash last night. Pt to give this 3-4 weeks. Will consider BP wash and Retin-A if no improvement. ? Extracted from:Title: Office Clinic Note Author: COLLIN STOLL Date: 12/21/20 1.?Pain in left knee Extracted from:Title: Office Clinic Note Author: ESTEVAN SCHULTZ Date: 12/20/20 1.?Pain in left knee ?20 y/o female presents with knee pain x 6months after fall while running [place]. She aggravated it last week when she tripped on a rock. Pain is localized superior edge of patella. No EEE,TTP. FAROM, strength 5/5?and special tests all negative. Suspect mild sprain or meniscal injury. 7 Days LD Educated on RICE RTC if Sx persist. ? ? ? Ordered: ibuprofen 600 mg oral tablet, 1 tab(s), Oral, QID, # 120 tab(s), 0 total refill(s), Acute, 01/12/2021, [facility]] Tylenol 325 mg oral tablet, 1 tab(s), Oral, every 4 hr, PRN pain or fever, # 100 tab(s), 0 total refill(s), Acute, 01/11/2021, [facility] [[facility]] Office Visit Level 5 Est 40560 ? Extracted from:Title: Depression Symptoms Author: SANDRA COLBY VEGA Date: 12/13/20 1.?Depressed ?20 y/o ADF with feelings of depression and self harm ideals following her father's . She is currently working with [employer] team. ? -Started pt on Prozac for 2 week trial -Pt may not drink on this medication. She is abstaining already -Pt educated heavily on side effects, ER precautions -Pt to avoid pre-workout for at least one week -Pt will call [place] in 2 weeks time to discuss medication side effects, if pt tolerating well, will give another 2 week prescription and plan to see [place] after that -Pt expressed understanding and agrees to the plan -ER precautions discussed -RTC PRN -FFD ? Ordered: PROzac 20 mg oral capsule, 1 cap(s), Oral, Daily, Take one cap by mouth every morning. Call [place] at for refill., # 14 cap(s), 0 total refill(s), Maintenance, [facility] [[facility]] ? Extracted from:Title: Cardiology Virtual Encounter Note - Chest pain Author: TAYO QUINTANILLA, DO Date: 11/14/20 1.?Chest pain ?Atypical chest pain, but she does have an exertional component.? Will get exercise stress test in addition to a 7 day Holter monitor to evaluate whether an arrhythmia might be causing her symptoms. Ordered: CV Exercise Treadmill Test CV Extended Holter Monitor Waiver Services; Not Otherwise Specified (NOS) T2025 ? A total of?30?minutes was spent during this encounter. ?>50% of the time was spent coordinating care and/or counseling the patient on the diagnosis, evaluation and therapeutic options. ? Patient verbalized understanding and agreement with diagnosis and treatment plan. Verbalized importance of obtaining follow up after studies and consultation are complete. No barriers to understanding identified. ? ? This patient visit was accomplished via telephone during the COVID-19 pandemic response. This visit was conducted in accordance with instructions from the Centers for Disease Control, the Department of Defense, and guidance from facility leadership. Patient was notified and consented to a virtual health appointment in lieu of a face to face encounter.? ? Signed by LCDR Tayo Quintanilla DO, [facility] Cardiology [facility] ? Extracted from:Title: Office Clinic Note - cp / frieda Author: JOSÉ AUGUSTIN Date: 11/08/20 1.?Chest pain Ordered: Office Visit Level 3 New 94975 ? Extracted from:Title: Office Clinic Note cp / frieda Author: JOSÉ AUGUSTIN Date: 11/08/20 1.?Chest pain ?20y/o female with 3 episode's of chest pain resolved with laying down.? Unknown onset. Recently lost father in mid- Sep due to complications after being diagnosed with COVID-19.? MGM passed in her early 40's due to unknown heart issues, Mother is currently being treated for unknown heart issues. 1. Refer to Cardio due to significant family history of cardio issues. 2. Refer to frieda for possible anxiety/panic attacks. 3. rtn to medical if s/sx increase with precautions to go to ER. 4. Educated and acknowledges plan. ? ? ? Ordered: Office Visit Level 3 New 00556 ? 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 He was most recently evaluated on 16 OCT 2020 without notable change in his clinical presentation and SM was provided with LLD extension to facilitate initiation of physical therapy. He has exhausted 56/90 days of LLD for this same issue. She continues to improve with PT out in town with stretching/strengthening and cupping treatment modalities. SM declines interest in anti-inflammatory medications at this time as they were not previously helpful. She believes she will return to duty upon completion of her therapy which has a duration lasting approximately 1-month from now. Will honor LLD extension request. Follow-up at [facility] with PT/shorts for further spine examinations/treatment?as needed. Ordered: Office Visit Level 3 Est 82086 ? Extracted from:Title: Office Clinic Note-LLD chit credit authorizer Author: KELSI VILLEGAS Date: 10/14/20 1.?Administrative statuses ?LLD chit granted until 19 October 2020 at which point duty status recommendation will be made by physical therapist ? 12/25/[address] [place] [address] 21 [facility] Assessment and Plan Extracted from:Title : Office Clinic Note Author: CHRISTINE FOUNTAIN Date: 07/08/24 Encounter for examination and observation for other specified reasons Hearing WNL. A copy of hearing test was given to patient, and uploaded into powerchart. Christine Fountain, Weights And Measures Inspector [employer] [facility], [place], [place] ? ? Extracted from:Title: Office Clinic Note- Separation Physical Author: GALINA DAVIS PA-C Date: 03/14/21 1. Separation Physical Pt well and in NAD. PE unremarkable. Refer to scanned 2807/2808 for complete documentation. Chronic, intermittent concerns well evaluated, documented, and treated.? Pt is Fit to Separate. a. [facility] ? Extracted from:Title: Termination Audiogram Note Author: OSIRIS ORTIZ Date: 02/22/21 1.?EXAM, FORMAL OCCUPATIONAL HEALTH PROGRAM INCLUDING HEARING CONSERVATION PROGRAM, DUE TO TERMINATION OF OCCUPATIONAL WORKPLACE EXPOSURE 2.?Ear nose and throat disease treatment started 3.?Health education given Assessment: Patient?does not have an STS?in today's?audiogram.?No further testing required. Plan:? Termination Audiogram Complete. Extracted from:Title: Stress Follow Up Author: COLBY FLORES Date: 01/09/21 1.?Stress ?20 y/o ADF presents for medication f/u after starting Lexapro. No adverse SE so far. ? -Pt to continue medication. F/u at 30 day joe for refill assessment -ER precautions discussed -Pt agrees to the plan ? 2.?Knee pain ?-5 days LLD given to get pt to first PT appt on JAN 22 ? Extracted from:Title: Office Clinic Note Author: ESTEVAN SCHULTZ Date: 12/30/20 1.?Pain in left knee Ordered: Office Visit Level 5 Est 29439 ? ?20 y/o female presents with L knee pain x 6months after fall while running [place]. She aggravated it?2 weeks ago?when she tripped on a rock. Pain is localized superior edge of patella. No EEE,TTP. FAROM, strength 5/5?and special tests all negative. Suspect mild sprain or meniscal injury. 7 Days LD consult to PT placed Educated on RICE RTC if Sx persist. ? ? Extracted from:Title: Chronic Chest Pain Author: COLBY FLORES Date: 12/28/20 1.?Stress ?20 y/o ADF presents with chest pain since October. History and workup?most consistent with anxiety and stress causing physical symptoms to include chest tightness. ? -Pt did not do well on Prozac -Start pt on Lexapro, check in in about 2?weeks -Pt working with FRIEDA on family and work stress ? Ordered: XR Chest 2 Views ? 2.?Chest pain ?Chest xray to r/o residual lung injury after COVID. Ordered: XR Chest 2 Views ? 3.?Acne ?Pt with c/o increased acne. She just started OTC wash last night. Pt to give this 3-4 weeks. Will consider BP wash and Retin-A if no improvement. ? Extracted from:Title: Office Clinic Note Author: COLLIN STOLL Date: 12/21/20 1.?Pain in left knee Extracted from:Title: Office Clinic Note Author: ESTEVAN SCHULTZ Date: 12/20/20 1.?Pain in left knee ?20 y/o female presents with knee pain x 6months after fall while running [place]. She aggravated it last week when she tripped on a rock. Pain is localized superior edge of patella. No EEE,TTP. FAROM, strength 5/5?and special tests all negative. Suspect mild sprain or meniscal injury. 7 Days LD Educated on RICE RTC if Sx persist. ? ? ? Ordered: ibuprofen 600 mg oral tablet, 1 tab(s), Oral, QID, # 120 tab(s), 0 total refill(s), Acute, 01/12/2021, [facility]] Tylenol 325 mg oral tablet, 1 tab(s), Oral, every 4 hr, PRN pain or fever, # 100 tab(s), 0 total refill(s), Acute, 01/11/2021, [facility] [Not filled] Office Visit Level 5 Est 86933 ? Extracted from:Title: Depression Symptoms Author: COLBY FLORES Date: 12/13/20 1.?Depressed ?20 y/o ADF with feelings of depression and self harm ideals following her father's . She is currently working with [facility] team. ? -Started pt on Prozac for 2 week trial -Pt may not drink on this medication. She is abstaining already -Pt educated heavily on side effects, ER precautions -Pt to avoid pre-workout for at least one week -Pt will call MO in 2 weeks time to discuss medication side effects, if pt tolerating well, will give another 2 week prescription and plan to see [facility] after that -Pt expressed understanding and agrees to the plan -ER precautions discussed -RTC PRN -FFD ? Ordered: PROzac 20 mg oral capsule, 1 cap(s), Oral, Daily, Take one cap by mouth every morning. Call MO at for refill., # 14 cap(s), 0 total refill(s), Maintenance, [facility] [Not filled] ? Extracted from:Title: Cardiology Virtual Encounter Note - Chest pain Author: TAYO QUINTANILLA, Date: 11/14/20 1.?Chest pain ?Atypical chest pain, but she does have an exertional component.? Will get exercise stress test in addition to a 7 day Holter monitor to evaluate whether an arrhythmia might be causing her symptoms. Ordered: CV Exercise Treadmill Test CV Extended Holter Monitor Waiver Services; Not Otherwise Specified (NOS) T2025 ? A total of?30?minutes was spent during this encounter. ?>50% of the time was spent coordinating care and/or counseling the patient on the diagnosis, evaluation and therapeutic options. ? Patient verbalized understanding and agreement with diagnosis and treatment plan. Verbalized importance of obtaining follow up after studies and consultation are complete. No barriers to understanding identified. ? ? This patient visit was accomplished via telephone during the COVID-19 pandemic response. This visit was conducted in accordance with instructions from the Centers for Disease Control, the Department of Defense, and guidance from facility leadership. Patient was notified and consented to a [facility] health appointment in lieu of a face to face encounter.? ? Signed by LCDR Tayo Quintanilla DO, [facility] Cardiology [facility] ? Extracted from:Title: Office Clinic Note - cp / frieda Author: JOSÉ AUGUSTIN Date: 11/08/20 1.?Chest pain Ordered: Office Visit Level 3 New 20353 ? Extracted from:Title: Office Clinic Note cp / frieda Author: JOSÉ AUGUSTIN Date: 11/08/20 1.?Chest pain ?20y/o female with 3 episode's of chest pain resolved with laying down.? Unknown onset. Recently lost father in mid- Sep due to complications after being diagnosed with COVID-19.? MGM passed in her early 40's due to unknown heart issues, Mother is currently being treated for unknown heart issues. 1. Refer to Cardio due to significant family history of cardio issues. 2. Refer to frieda for possible anxiety/panic attacks. 3. rtn to medical if s/sx increase with precautions to go to ER. 4. Educated and acknowledges plan. ? ? ? Ordered: Office Visit Level 3 New 07212 ? 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 He was most recently evaluated on 16 OCT 2020 without notable change in his clinical presentation and SM was provided with LLD extension to facilitate initiation of physical therapy. He has exhausted 56/90 days of LLD for this same issue. She continues to improve with PT out in town with stretching/strengthening and cupping treatment modalities. SM declines interest in anti-inflammatory medications at this time as they were not previously helpful. She believes she will return to duty upon completion of her therapy which has a duration lasting approximately 1-month from now. Will honor LLD extension request. Follow-up at [facility] with PT/shorts for further spine examinations/treatment?as needed. Ordered: Office Visit Level 3 Est 02184 ? Extracted from:Title: Office Clinic Note-TANIA vasquez credit authorizer Author: KELSI VILLEGAS Date: 10/14/20 1.?Administrative statuses ?TANIA chit granted until 19 October 2020 at which point duty status recommendation will be made by physical therapist ? 12/25/2024 [facility] Advance Directives List of completed, amended, or rescinded Advance Directives on record at Department of Veterans Affairs facilities. An actual copy of the Directive is not included. Date Advance Directive Provider Source 01/31/2022 ADVANCE DIRECTIVE DISCUSSION Miguel Angel [facility] Functional Status Combined list of recent functional and cognitive assessments recorded at Department of Defense and Veterans Affairs (VA).VA Functional Winkler Measurement (FIM) Scale: 1 = Total Assistance (Subject = 0% +), 2 = Maximal Assistance (Subject = 25% +), 3 = Moderate Assistance (Subject = 50% +), 4 = Minimal Assistance (Subject = 75% +), 5 = Supervision, 6 = Modified Winkler (Device), 7 = Complete Winkler (Timely, Safely). Assessment Date/Time Source Assessment Type Assessment Skill Assessment Score Assessment Details No data available for this section
--- OUTSIDE RECORDS SUMMARY | 2024-12-25 12:33 | XMS_ITS | Continuity of Care Document ---
Author Organization [facility] Address [address] [place], [place] [address]sharon howard, [address] [place] [address]- Care Team Providers Care Menagerie Superintendent Name Role Phone Marcela MORALES, Melly Valera Primary Care Physician Encounter [facility] Date(s): 11/18/24 - 11/25/24 [facility] [address] [place] [address] Drive [address] [place], [place] [address] Attending Physician: Jason Leblanc MD Referring Physician: Melly Medrano MD Encounter Type: Office Visit Allergies, Adverse Reactions, Alerts Substance Criticality Severity Reaction Reaction Severity Status penicillins Active Medications Colace sodium 100 mg oral capsule 100 mg, 1, capsule, By Mouth, 2 times a day, To be taken while on vicodin Take with plenty of water, # 14 capsule, Refills 0, Tot. Refills 0, Maintenance, 09/25/24 2:54:00 PM EST, Route to Pharmacy Electronically, [facility]/pharmacy #[id number], Partial fill upon patient request if the prescription is for a schedule II opioid drug., 173, cm, 09/10/24 9:36:00 EST, Height, 86.8, kg, 09/25/24 11:00:00 EST, Dry Weight Start Date: 09/25/24 Stop Date: 10/02/24 Status: Ordered Quantity: 14.0 Unit: capsule Repeat number: 1 Medrol Dosepak 4 mg oral tablet 1 pack/packet, By Mouth, Once, # 21 tablet, 0 Refills, Soft Stop, 11/06/24 9:24:00 AM EST, Tablet, [facility]pharmacy [id number], Partial fill upon patient request if the prescription is for a schedule II opioid drug., 173, cm, 11/06/24 8:51:00 EST, Height, 86.8, kg, 09/25/24 11:00:00 EST, Dry Weight Start Date: 11/06/24 Status: Ordered Quantity: 21.0 Unit: tablet Repeat number: 1 tiZANidine 2 mg oral tablet 2 mg, 1, tablet, By Mouth, Every 8 hours, PRN, # 90 tablet, Refills 0, Tot. Refills 0, Maintenance,as needed for muscle spasm, 09/25/24 2:53:00 PM EST, Route to Pharmacy Electronically, [facility]/pharmacy#[id number], Partial fill upon patient request if the prescription is for a schedule II opioid drug., 173, cm, 09/10/24 9:36:00 EST, Height, 86.8, kg, 09/25/24 11:00:00 EST, Dry Weight Start Date: 09/25/24 Stop Date: 10/25/24 Status: Ordered Quantity: 90.0 Unit: tablet Repeat number: 1 Patient Care team information Care Team Personnel Name: Marcela MORALES , Melly Valera Position: Reference Physician Member Role: PCP Address: [address] [place] [address] Telecom: Name: Michael AGUIRRE, Isaías Position: Oskar RN Member Role: Primary Care Nurse Care Team Related Persons Name: JADA BURGER Insurance Providers Guarantor name: NA Health Plan Information #: 1 Payer: PRIME Member Number: [id number] Policy Number: NA Group Number: NA Health Plan Information #: 2 Payer: [facility] Member Number: [id number] Policy Number: NA Group Number: NA Health Plan Information #: 3 Payer: [employer] M[employer] A ONLY Member Number: NA Policy Number: NA Group Number: NA Health Plan Information #: 4 Payer: [employer] Member Number: [id number] Policy Number: NA Group Number: NA
--- OUTSIDE RECORDS SUMMARY | 2024-12-25 12:33 | XMS_ITS | Continuity of Care Document ---
Author Organization [facility] Address [address] [place] [address] [address], [address] [place] [address]- Care Team Providers Care Tar Heat Exchanger Cleaner Name Role Phone Marcela MORALES, Melly Valera Primary Care Physician [place] [facility] [place] - 12/18/24 [facility] [address] [place] [address] Drive [address] [place], [place] [address] Attending Physician: Rola Hector Admitting Physician: AdmtrRola Referring Physician: Admtr, Ar8 Encounter Type: Triage Allergies, Adverse Reactions, Alerts Substance Criticality Severity Reaction Reaction Severity Status penicillins Active Medications Colace sodium 100 mg oral capsule 100 mg, 1, capsule, By Mouth, 2 times a day, To be taken while on vicodin Take with plenty of water, # 14 capsule, Refills 0, Tot. Refills 0, Maintenance, 09/25/24 2:54:00 PM EST, Route to Pharmacy Electronically, [facility]/pharmacy #[id number], Partial fill upon patient request [...] Soft Stop, 11/06/24 9:24:00 AM EST, Tablet, [facility]/pharmacy #[id number], Partial fill upon patient request [...] 2:53:00 PM EST, Route to Pharmacy Electronically, [facility]/pharmacy#[id number], Partial fill upon patient request if the prescription is for a schedule II opioid drug., 173, cm, 09/10/24 9:36:00 EST, Height, 86.8, kg, 09/25/24 11:00:00 EST, Dry Weight Start Date: 09/25/24 Stop Date: 10/25/24 Status: Ordered Quantity: 90.0 Unit: tablet Repeat number: 1 Patient Care team information Care Team Personnel Name: Marcela MORALES , Melly Valera Position: Reference Physician Member Role: PCP Address: [address] [place] [address] Telecom: Name: Michael AGUIRRE, Isaías Position: Oskar RN Member Role: Primary Care Nurse Care Team Related Persons Name: JADA BURGER Insurance Providers Guarantor name: ALLY Health Plan Information #: 1 Payer: [employer]IME Member Number: NA Policy Number: NA Group Number: NA Health Plan Information #: 2 Payer: PCCC Member Number: NA Policy Number: NA Group Number: NA Health Plan Information #: 3 Payer: HL[employer] FED C Member Number: NA Policy Number: NA Group Number: NA
--- OUTSIDE RECORDS SUMMARY | 2024-12-25 12:33 | XMS_ITS | Encounter Summary ---
Author Name [facility] [place] Organization [facility] [place] Address [address] [place] [address] Care Team Providers Care Plant Assigner Name Role Phone NORM MOYA Primary Care Provider Unava ilable Selected Encounter This section includes the information on record at [place] for the Encounter. Date/Time Encounter Type Encounter Description Reason Pro vider Source Dec 01, 2024 11:22 AM Outpatient Encounter PRIMARY CARE/MEDICINE IHE Encounter Template Text not used by [place] Social History: Smoking Status (Most current) and Tobacco Use (All prior to encounter date) This section includes the most current, and the historical, smoking and tobacco- related health factors from the [place] facility where the Encounter took place. Current Smoking Status This section includes the most current smoking, or tobacco-related health factor, from the [place] facility where the Encounter took place. Date/Time Current Smoking Status Comment Francisco malone Feb 27, 2023 11:30 AM [place]-TOBACCO NEVER USED [facility] Tobacco Use History This section includes a history of the smoking, or tobacco-related health factors, that were collected on or before the date of the Encounter. The data comes from the [place] facility where the Encounter took place. Date/Time Smoking Status/Tobacco Use Comment F acility Dec 27, 2022 11:42 AM [facility] TOBACCO SMOKES DOES NOT [facility] Nov 02, 2022 02:48 PM [facility] TOBACCO SMOKES DOES NOT [facility] Jul 20, 2022 01:31 PM [facility] TOBACCO SMOKES DOES NOT [facility] Jan 31, 2022 01:30 PM VA-TOBACCO USE 1 TO < 5 YEARS [facility] Jan 31, 2022 01:30 PM VA-TOBACCO USE ADVICE [facility] Jan 31, 2022 01:30 PM VA-TOBACCO USE DOMESTIC CLEANER NO [facility] Jan 31, 2022 01:30 PM VA-TOBACCO USE MED NO [facility] Jan 31, 2022 01:30 PM VA-TOBACCO USE WI 30 MIN OF WAKE UP [facility] Jan 31, 2022 01:30 PM VA-TOBACCO USER EVERY DAY [facility] Advance Directives: All historical and current Section Date Range: From patient's date of to the date document was created. This section includes ALL of a patient's completed or amended [place] Advance and Rescinded Directives. The entries below indicate that a directive exists for the patient, but an actual copy is not included with this document. The data comes from all [facility]. Date Advance Directives Provider Source Jan 31, 2022 ADVANCE DIRECTIVE DISCUSSION Miguel Angel BISWAS [facility] Encounter Notes: All associated encounter notes This section contains the clinical notes associated to the Encounter. Date/Time Encounter Note(s) Provider Source Dec 01, 2024 11:22 AM NURSING OUTPATIENT NOTE: LOCAL TITLE: PRIMARY CARE NURSING NOTE STANDARD TITLE: NURSING OUTPATIENT NOTE DATE OF NOTE: DEC 01, 2024@11:22 ENTRY DATE: DEC 01, 2024@11:25:08 AUTHOR: MATT VALENTINE EXP COSIGNER: URGENCY: STATUS: COMPLETED Vet text sent 12/01/24. [place] is over due for pap. Please schedule for pap screening if calls back. If has received care outside of [place] please inquire when and where. /aliza/ MATT VALENTINE SOLUTION STRATEGIST NURSE Signed: 12/01/2024 11:25 MATT VALENTINE [facility]
== END 2024-12-25 14:09 | disposition home or self-care (01) ==
LOC: HO.HMCC 11:25
PROVIDERS: PCP Internal Medicine; Visit Provider Internal Medicine
DX: M51.16 Intervertebral disc disorders with radiculopathy, lumbar region (principal); G89.18 Other acute postprocedural pain; M54.9 Dorsalgia, unspecified

== ENCOUNTER → 2024-12-25 11:25 | Outpatient (BNVA) | payer OTHER, SELFPAY | PROVIDERS: PCP Internal Medicine; Visit Provider Internal Medicine | DX: M51.16 Intervertebral disc disorders with radiculopathy, lumbar region (principal); M54.9 Dorsalgia, unspecified; G89.18 Other acute postprocedural pain | CPT/HCPCS: 96127 ==

== ENCOUNTER 2025-08-18 12:26 | Outpatient (AMB) | payer OTHER, SELFPAY ==
[2025-08-18 12:42] VITALS: BP 110/70; PULSE 83; RESP 15; TEMP 36.8; O2SAT 98
--- NOTE | 2025-08-18 12:42 | A.OFFPC_ITS ---
Vital Signs 08/18/25 12:42 Height 5 ft 8 in Weight 197 lb BMI 30.0 BP 110/70 Blood Pressure Location Rt brachial Position Sitting Respiration 15 Pulse 83 Pulse Source Pulse Oximeter Temp 98.3 F Temp Source Oral Pulse Oximetry (%) 98 Oxygen Delivery Method Room Air Intake Visit Reasons: Annual PE/lvm to move Intake Note: Pt is here today for her PE Allergies Penicillins Allergy (Severe, Verified 08/18/25 13:05) rash Medication List - Last Reconciled 08/18/25 by Melly Medrano MD duloxetine 30 mg PO DAILY tizanidine 2 mg PO Q8H PRN valacyclovir 500 mg PO Q12H PRN 3 days Tobacco use date assessed: 08/18/25 Dental Screening Dental Screen Date: 08/18/25 Did you have a dental visit in the last 12 months?: No Did you have a dental problem in the last 6 months where you did not have access to dental care?: No Was dental information given to patient?: Patient has dentist HPI Annual PE/lvm to move HPI Details 25-year-old lady with a past mellitus hi story significant for depression and anxiety, chronic low back pain with a spinal stenosis, here today for physical exam. She had an L5-S1 with diskectomy done last September [address] Leblanc, with no improvement in her low back pain or numbness and tingling going down right leg. Repeat MRI done earlier this year did not show any improvement, and as per patient , there is no surgical treatment indicated at present time . She has just been taking tizanidine 2 mg every 8 hours as needed for painful muscle spasm which affords some relief. [facility] Medical History (Updated 08/18/25 @ 13:13 by Melly Medrano MD) History of anemia Depression with anxiety History of herpes genitalis Right ovarian cyst Chronic headaches Lumbar back pain with radiculopathy affecting lower extremity History of anxiety disorder Surgical History (Updated 12/27/24 @ 01:03 by Melly Medrano MD) History of lumbar discectomy History of adenoidectomy Hx of tonsillectomy History of appendectomy Family History Father Morbid obesity Mother Essential hypertension Depression Paternal Grandfather Diabetes mellitus Paternal Uncle Diabetes mellitus Social History Housing: House Patient Tobacco Use Status: Never used Tobacco e-Cigarette/Vaping Use: Currently Using service: Yes Current occupational status: employed Current occupation: [employer] Current occupational exposures/hazards: Yes Cognitive needs: No Hearing needs: No Vision needs: No Questionnaire PHQ-9 Over the last 2 weeks, how often have you been bothered by any of the following problems? 1. Little interest or pleasure in doing things: not at all 2. Feeling down, depressed, or hopeless: not at all 3. Trouble falling or staying asleep, or sleeping too much: not at all 4. Feeling tired or having little energy: not at all 5. Poor appetite or overeating: not at all 6. Feeling bad about yourself - or that you are a failure or have let yourself or your family down: not at all 7. Trouble concentrating on things, such as reading the newspaper or watching television: not at all 8. Moving or speaking so slowly that other people could have noticed. Or the opposite - being so fidgety or restless that you have been moving around a lot more than usual: not at all 9. Thoughts that you would be better off or of hurting yourself in some way: not at all Total score: 0 Depression Screening Interpretation: Negative (Controlled on duloxetine, patient however would like to see a therapist) Depression Screening Done: Yes Source: Developed by Drs. Bob Abdul, Sharita Euceda, Thanh Han and colleagues, with an educational giovanny from [employer]. Thrive Questionnaire Date Thrive assessed: 12/25/24 I am a: Patient What is your living situation today?: I have a steady place to live Within the past 12 months, did the food you bought not last and you didn't have the money to get more?: Never true Within the past 12 months, did you worry whether your food would run out before you got money to buy more?: Never true Do you have trouble paying for medicines?: No Do you have trouble getting transportation to medical appointments?: No Do you have trouble paying your heating and electricity bill?: No Do you have trouble taking care of your child, family member or friend?: No Do you have trouble with day-to-day activities such as bathing, preparing meals, shopping, managing finances, etc.?: No Are you currently unemployed and looking for a job?: No Are you interested in more education?: No Please select the resources that you would like help with: None Currently or been in a relationship where the following occur: No concerns reported THRIVE Score: 0 AUDIT C Alcohol Use Questionnaire (AUDIT-C) 1. How often do you have a drink containing alcohol?: Never Total Score: 0 THU-7 AMB Questionnaire THU-7 Date THU - 7 assessed: 12/25/24 Feeling nervous, anxious, or on edge: 1 = Several days Not being able to stop or control worryin = Several days Worrying too much about different things: 1 = Several days Trouble relaxin = Several days Being so restless that it is hard to sit still: 0 = Not at all Becoming easily annoyed or irritable: 0 = Not at all Feeling afraid as if something awful might happen: 0 = Not at all Total THU-7 score (0-4 normal; 5-9 mild; 10-14 moderate; 15-21 severe): 4 Source: Developed by Drs. Bob Abdul, Sharita Euceda, Thanh Han and colleagues, with an educational giovanny from [employer]. HTU-7 Assessment Billing THU-7 Assessment Tool: THU-7 Assessment 03175 Review of Systems Const Denies fever(s) and Denies weakness Eyes Denies change in vision ENT Denies dizziness and Denies disequilibrium Card Denies chest pain and Denies dyspnea Resp Denies chest congestion, Denies cough, Denies dyspnea and Denies wheezing GI Denies abdominal pain, Denies change in bowel habits and Denies heartburn Denies hematuria, Denies urinary frequency, Denies dysuria, Denies urinary incontinence and Denies urinary urgency Musc Reports as per HPI Skin/Breast Denies breast pain, Denies breast mass and Denies rash Neuro Reports as per HPI, Denies dizziness, Denies lack of coordination, Denies focal weakness, Reports paresthesias (Going down right lower extremity in buttock), Denies disequilibrium and Denies weakness Psych Reports no additional complaints Endo Reports no additional complaints Jerry/Lymph Denies easy bleeding and Denies easy bruising Aller/Immun Denies seasonal rhinorrhea and Denies wheezing Physical exam (Primary Care) Vital Signs: Last Vital Signs Temp 98.3 F 08/18/25 12:42 Pulse 83 08/18/25 12:42 Resp 15 08/18/25 12:42 BP 110/70 08/18/25 12:42 Pulse Ox 98 08/18/25 12:42 Oxygen Delivery Method Room Air 08/18/25 12:42 BMI result Body Mass Index 30.0 Tobacco/Smoking Status: Tobacco use Status Tobacco use date assessed 08/18/25 08/18/25 12:46 Patient Tobacco Use Status Never used Tobacco 08/18/25 12:46 e-Cigarette/Vaping Use Currently Using 08/18/25 12:46 PHQ-9: PHQ-9 Score PHQ-9: Total score 0 08/18/25 13:07 Depression Screening Interpretation: Negative (Controlled on duloxetine, patient however would like to see a therapist) Thrive Assessment: Date of Thrive Assessment Date Thrive assessed 12/25/24 08/18/25 12:46 Currently or been in a relationship where the following occur: No concerns reported Const Orientation/consciousness: patient oriented x3 HENMT Head: Yes normocephalic Face and sinus: Yes face symmetric Mouth: moist mucous membranes Eyes General: appearance normal, both eyes and all related structures Neck Neck: Yes full ROM, Yes no lymphadenopathy and Yes supple Chest Breast/axilla palpation: normal palpation of the breasts Resp Effort & Inspection: normal respiratory effort and able to speak in complete sentences Auscultation: clear to auscultation bilaterally Cardio Rate: regular rate Rhythm: regular rhythm Heart sounds: S1 normal heart sound present and S2 normal heart sound present GI Palpation (GI): Soft to palpation, nontender, no guarding and no masses Auscultation: normal bowel sounds Back/Spine/Pelvis Thoracic/Lumbar Spine: pain with thoraco-lumbar ROM (On right), paraspinal muscle tenderness (Right lumbar area and right buttock) and straight leg raise positive (Right) Skin General skin exam: no rashes or lesions noted Neuro Other: Decreased range of motion on right, MMT 5/5 except for right lower extremity which is 4/5 General: patient oriented x3 and no focal motor deficits Gait exam (Neuro): Antalgic gait present Extrem General: Yes no joint enlargement and Yes no clubbing, cyanosis or edema Psych Appearance: grossly normal and well kempt Mental Status: mental status grossly normal Speech and movement: Normal speech and movement present Affect: normal affect Coding Level of Care Code Est Pt Prev Care 18-39y(46524) Diagnoses Annual visit for general adult medical examination with abnormal findings Z00.01 Depression with anxiety F41.8 History of herpes genitalis Z86.19 History of anemia Z86.2 Postoperative back pain G89.18; M54.9 Additional Codes THU-7 Assessment Billing - THU-7 Assessment Tool: THU-7 Assessment 20928 ([id number]) Assessment & Plan Assessment & Plan (1) Annual visit for general adult medical examination with abnormal findings: Code(s): Z00.01 - Encounter for general adult medical examination with abnormal findings Plan: Will check appropriate labs. Recommended dental visit every 6 months and regular eye exams, at least every 2 years. Take adequate calcium in diet and vitamin-D 3 at 2000 IU per cap once a day, in addition to weight-bearing exercises to help maintain good muscle tone and weight control. Instructed to do self-breast exam, and recommended to get yearly mammogram, starting at age 40. Advised to get an appointment with her Ob her cervical cancer screening . Reminded to get flu vaccine, up-to-date with her Tdap and other vaccines (2) Depression with anxiety: Code(s): F41.8 - Other specified anxiety disorders Category: Medical Plan: Continued on duloxetine 30 mg daily, referred to Alice Borden , for assistance in getting in to be seen by a therapist in person (3) History of herpes genitalis: Code(s): Z86.19 - Personal history of other infectious and parasitic diseases Category: Medical Plan: Prescription sent for valacyclovir to take 500 mg tablet twice a day for 3 days, take at the 1st sign out. (4) History of anemia: Code(s): Z86.2 - Personal history of diseases of the blood and blood-forming organs and certain disorders involving the immune mechanism Category: Medical Plan: Ordered CBC with differential , ferritin, and iron profile (5) Postoperative back pain: Code(s): G89.18 - Other acute postprocedural pain; M54.9 - Dorsalgia, unspecified Category: Medical Plan: Advised to follow-up with neurosurgery Orders: Orders Complete Blood Count Auto Diff 08/18/25 F41.8 - Other specified anxiety disorders, Z00.01 - Encounter for general adult medical examination with abnormal findings, Z13.220 - Encounter for screening for lipoid disorders, Z86.19 - Personal history of other infectious and parasitic diseases, Z86.2 - Personal history of diseases of the blood and blood-forming organs and certain disorders involving the immune mechanism Lipid Panel 08/18/25 F4.8 - Other specified anxiety disorders, Z00.01 - Encounter for general adult medical examination with abnormal findings, Z13.220 - Encounter for screening for lipoid disorders, Z86.19 - Personal history of other infectious and parasitic diseases, Z86.2 - Personal history of diseases of the blood and blood-forming organs and certain disorders involving the immune mechanism Ferritin 08/18/25. - Other specified anxiety disorders, Z00.01 - Encounter for general adult medical examination with abnormal findings, Z13.220 - Encounter for screening for lipoid disorders, Z86.19 - Personal history of other infectious and parasitic diseases, Z86.2 - Personal history of diseases of the blood and blood-forming organs and certain disorders involving the immune mechanism IRON PROFILE 08/18/25. - Other specified anxiety disorders, Z00.01 - Encounter for general adult medical examination with abnormal findings, Z13.220 - Encounter for screening for lipoid disorders, Z86.19 - Personal history of other infectious and parasitic diseases, Z86.2 - Personal history of diseases of the blood and blood-forming organs and certain disorders involving the immune mechanism Vitamin D 25-OH Total 08/18/25. - Other specified anxiety disorders, Z00.01 - Encounter for general adult medical examination with abnormal findings, Z13.220 - Encounter for screening for lipoid disorders, Z86.19 - Personal history of other infectious and parasitic diseases, Z86.2 - Personal history of diseases of the blood and blood-forming organs and certain disorders involving the immune mechanism Alanine Aminotransferase 08/18/25.8 - Other specified anxiety disorders, Z00.01 - Encounter for general adult medical examination with abnormal findings, Z13.220 - Encounter for screening for lipoid disorders, Z86.19 - Personal history of other infectious and parasitic diseases, Z86.2 - Personal history of diseases of the blood and blood-forming organs and certain disorders involving the immune mechanism Aspartate Amino Transferase 10/15/25 F41.8 - Other specified anxiety disorders, Z00.01 - Encounter for general adult medical examination with abnormal findings, Z13.220 - Encounter for screening for lipoid disorders, Z86.19 - Personal history of other infectious and parasitic diseases, Z86.2 - Personal history of diseases of the blood and blood-forming organs and certain disorders involving the immune mechanism Medications: New duloxetine 30 mg PO DAILY 30 caps 6RF F41.8 - Other specified anxiety disorders Refilled valacyclovir Take at the 1st sign of outbreak 500 mg PO Q12H PRN 6 tabs 4RF Recurrent genital herpes 3 days Z86.19 - Personal history of other infectious and parasitic diseases
== END 2025-08-18 14:50 | disposition home or self-care (01) ==
LOC: HO.HMCC 12:26
PROVIDERS: PCP Internal Medicine; Visit Provider Internal Medicine
DX: Z00.01 Encounter for general adult medical examination with abnormal findings (principal); F41.8 Other specified anxiety disorders; Z86.19 Personal history of other infectious and parasitic diseases; Z86.2 Personal history of diseases of the blood and blood-forming organs and certain disorders involving the immune mechanism; G89.18 Other acute postprocedural pain; M54.9 Dorsalgia, unspecified

== ENCOUNTER → 2025-08-18 12:26 | Outpatient (BNVA) | payer OTHER, SELFPAY | PROVIDERS: PCP Internal Medicine; Visit Provider Internal Medicine | DX: Z00.01 Encounter for general adult medical examination with abnormal findings (principal); F41.8 Other specified anxiety disorders; M54.50 Low back pain, unspecified; G89.18 Other acute postprocedural pain; Z86.19 Personal history of other infectious and parasitic diseases; Z86.2 Personal history of diseases of the blood and blood-forming organs and certain disorders involving the immune mechanism; Z98.890 Other specified postprocedural states | CPT/HCPCS: 96127 ==